=== PATIENT | male | born 1960 | race Caucasian/White ===

== ENCOUNTER 2023-06-21 08:28 | Outpatient (AMB) | payer OTHER, SELFPAY ==
--- NOTE | 2023-06-21 08:33 | A.OFFPC_ITS ---
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 Pt states that he has not seen a do ctor in years. 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 Pt c/o a chronic sore on the neck had negative bx 3 yrs ago. Pt c/o decreased appetite, feeling easy satiety and abdominal fullness epigastric discomfort after eating, frequent heartburns but denies dysphagia odynophagia nausea vomiting change in bowel habits hematochezia melena. Patient complains of insomnia and feeling sad and upset because his brother who lives with him was diagnosed with tongue cancer about a month ago and is undergoing treatment. Patient denies suicidal ideation and is not interested in taking medications for depression or seeing a counselor. [facility] Medical History (Updated 06/21/23 @ 09:53 by Pauline Dc MD) Hx of fracture of leg Surgical History History of back surgery Family History Father No problems noted. Mother Heart attack Brother Throat cancer Brother Substance use disorder Social History (Updated 06/21/23 @ 09:41 by Pauline Dc MD) Household Members Other:: lives with brother,disability for lumbar DJD, , 2 adult daughters Housing: House Alcohol intake: former Year quit: 2008 Patient Tobacco Use Status: Current everyday Tobacco user Tobacco use type: Cigarette Cigarette Packs Per Day: 1.5 Years Smoked: since 15 years old e-Cigarette/Vaping Use: Never Used Current occupational status: unemployed Cognitive needs: No Hearing needs: No Vision needs: Yes Questionnaire PHQ-9 Over the last 2 weeks, how often have you been bothered by any of the following problems? 1. Little interest or pleasure in doing things: several days 2. Feeling down, depressed, or hopeless: several days 3. Trouble falling or staying asleep, or sleeping too much: nearly every day 4. Feeling tired or having little energy: more than half the days 5. Poor appetite or overeating: nearly every day 6. Feeling bad about yourself - or that you are a failure or have let yourself or your family down: nearly every day 7. Trouble concentrating on things, such as reading the newspaper or watching television: nearly every day 8. Moving or speaking so slowly that other people could have noticed. Or the opposite - being so fidgety or restless that you have been moving around a lot more than usual: several days 9. Thoughts that you would be better off or of hurting yourself in some way: several days Total score: 18 Depression Screening Interpretation: Positive Depression Screening Done: Yes 11170 - PHQ-9 Billing: Yes Source: Developed by Drs. Shen Ware, Jonna Guevara, Mac Dial and colleagues, with an educational marito from [employer]. Thrive Questionnaire Date Thrive assessed: 06/21/23 I am a: Patient What is your living situation today?: I have a steady place to live Within the past 12 months, did the food you bought not last and you didn't have the money to get more?: Sometimes True Within the past 12 months, did you worry whether your food would run out before you got money to buy more?: Sometimes True Do you have trouble paying for medicines?: Yes Do you have trouble getting transportation to medical appointments?: No Do you have trouble paying your heating and electricity bill?: Yes Do you have trouble taking care of your child, family member or friend?: Yes Do you have trouble with day-to-day activities such as bathing, preparing meals, shopping, managing finances, etc.?: No Are you currently unemployed and looking for a job?: No Are you interested in more education?: No Please select the resources that you would like help with: Paying for medicine and Utilities Currently or been in a relationship where the following occur: no concerns reported THRIVE Score: 3 AUDIT C Alcohol Use Questionnaire (AUDIT-C) 1. How often do you have a drink containing alcohol?: Never 3. How often do you have six or more drinks on one occasion?: Never Total Score: 0 NATIVIDAD-7 AMB Questionnaire NATIVIDAD-7 Date NATIVIDAD - 7 assessed: 06/21/23 Feeling nervous, anxious, or on edge: 1 = Several days Not being able to stop or control worryin = Several days Worrying too much about different things: 2 = More than half the days Trouble relaxin = More than half the days Being so restless that it is hard to sit still: 2 = More than half the days Becoming easily annoyed or irritable: 2 = More than half the days Feeling afraid as if something awful might happen: 1 = Several days Total NATIVIDAD-7 score (0-4 normal; 5-9 mild; 10-14 moderate; 15-21 severe): 11 Source: Developed by Drs. Shen Ware, Jonna Guevara, Mac Dial and colleagues, with an educational marito from [employer]. NATIVIDAD-7 Assessment Billing NATIVIDAD-7 Assessment Tool: NATIVIDAD-7 Assessment 42217 Review of Systems Const All systems reviewed & are unremarkable except as noted in HPI and below Reports no additional complaints Eyes Reports no additional complaints ENT Reports no additional complaints Card Reports no additional complaints Resp Reports no additional complaints GI Reports no additional complaints Reports no additional complaints Musc Reports no additional complaints Physical exam (Primary Care) Vital Signs: Last Vital Signs Pulse 109 H 06/21/23 08:38 BP 136/76 06/21/23 08:38 Pulse Ox 96 06/21/23 08:38 Oxygen Delivery Method Room Air 06/21/23 08:38 BMI result Body Mass Index 22.5 Tobacco/Smoking Status: Tobacco use Status Tobacco use date assessed 06/21/23 06/21/23 08:47 Patient Tobacco Use Status Current everyday Tobacco 06/21/23 08:47 Tobacco use type Cigarette 06/21/23 08:47 e-Cigarette/Vaping Use Never Used 06/21/23 08:47 Depression Screening Interpretation: Positive Currently or been in a relationship where the following occur: no concerns reported Const General: no acute distress and ill appearing Nutritional Appearance: thin HENMT Head: Yes normocephalic Ears: hearing grossly normal bilaterally General nose exam: Normal external nose present Face and sinus: Yes normal facial exam Mouth: Normal oral and palatal mucosa present Throat: Yes posterior oropharynx normal Eyes General: appearance normal, both eyes and all related structures Neck Other: 5 cm round raised lesion with central ulceration Neck: Yes supple Resp Effort & Inspection: normal respiratory effort Auscultation: diminished lung sounds Cardio Rhythm: regular rhythm Heart sounds: S1 normal heart sound present and S2 normal heart sound present GI Inspection: Yes normal to inspection Palpation (GI): Tenderness to palpation present (GI) in the epigastrum and in the LUQ and No Rebound tenderness present Auscultation: normal bowel sounds Assessment and Plan Assessment & Plan (1) Lumbar disc disease: Comment: s/p [address] Bhat Code(s): M51.9 - Unspecified thoracic, thoracolumbar and lumbosacral intervertebral disc disorder (2) Annual physical exam: Code(s): Z00.00 - Encounter for general adult medical examination without abnormal findings Plan: Well-balanced diet regular physical activity discussed with the patient. He will be referred to GI for colonoscopy and possible EGD (3) Tobacco dependence: Comment: 1 PPD x 40 yrs Code(s): F17.200 - Nicotine dependence, unspecified, uncomplicated Plan: Tobacco quitting discussed with the patient. He will be referred to lung cancer screening program (4) Abdominal pain: Comment: epigastric and LUQ Code(s): R10.9 - Unspecified abdominal pain Plan: Check blood work and schedule CT of the abdomen pelvis to rule out diverticulitis (5) Skin lesion: Comment: L lateral neck 5 cm raised ulcerated Code(s): L98.9 - Disorder of the skin and subcutaneous tissue, unspecified Plan: refer to surgeon PARESH (6) GERD (gastroesophageal reflux disease): Comment: long standing Code(s): K21.9 - Gastro-esophageal reflux disease without esophagitis Plan: anti GERD diet, trial of PPI, GI referral for EGD (7) Weight loss: Code(s): R63.4 - Abnormal weight loss Plan: Well-balanced diet increase in caloric intake discussed with the patient check blood work and follow-up in 2 months to monitor weight (8) Anxiety and depression: Code(s): F41.9 - Anxiety disorder, unspecified; F32.A - Depression, unspecified Plan: Stress management discussed with the patient. he is aware of available resources including counseling and medications for anxiety and depressed. Patient declined Orders: Orders Comprehensive [place]. Panel Fast Today F17.200 - Nicotine dependence, unspecified, uncomplicated, Z00.00 - Encounter for general adult medical examination without abnormal findings Lipid Panel Today F17.200 - Nicotine dependence, unspecified, uncomplicated, Z00.00 - Encounter for general adult medical examination without abnormal findings PSA,Total (Free>4and<10) Today F17.200 - Nicotine dependence, unspecified, uncomplicated, Z00.00 - Encounter for general adult medical examination without abnormal findings UA w Microscopic Today F17.200 - Nicotine dependence, unspecified, uncomplicated, Z00.00 - Encounter for general adult medical examination without abnormal findings Vitamin B12 and Folate Today K21.9 - Gastro-esophageal reflux disease without esophagitis, R63.4 - Abnormal weight loss, Z00.00 - Encounter for general adult medical examination without abnormal findings Complete Blood Count Auto Diff Today F17.200 - Nicotine dependence, unspecified, uncomplicated, Z00.00 - Encounter for general adult medical examination without abnormal findings CT abdomen pelvis wo/w IV con Today R10.9 - Unspecified abdominal pain TSH reflex Free T4 Today K21.9 - Gastro-esophageal reflux disease without esophagitis, R63.4 - Abnormal weight loss, Z00.00 - Encounter for general adult medical examination without abnormal findings Vitamin D 25-OH Total Today K21.9 - Gastro-esophageal reflux disease without esophagitis, R63.4 - Abnormal weight loss, Z00.00 - Encounter for general adult medical examination without abnormal findings Referrals Gastroenterology Referral F17.200 - Nicotine dependence, unspecified, uncomplicated, Z00.00 - Encounter for general adult medical examination without abnormal findings Thoracic Surgery Referral F17.200 - Nicotine dependence, unspecified, uncomplicated General Surgery Referral L98.9 - Disorder of the skin and subcutaneous tissue, unspecified Medications: New omeprazole 40 mg PO DAILY 30 caps 1RF Coding Level of Care Code New Pt Prev Care 40-64y(88104) Diagnoses Lumbar disc disease M51.9 Annual physical exam Z00.00 Tobacco dependence F17.200 Abdominal pain R10.9 Skin lesion L98.9 GERD (gastroesophageal reflux disease) K21.9 Weight loss R63.4 Anxiety and depression F41.9; F32.A Additional Codes NATIVIDAD-7 Assessment Billing - NATIVIDAD-7 Assessment Tool: NATIVIDAD-7 Assessment 83860 ([id number])
[2023-06-21 08:38] VITALS: BP 136/76; PULSE 109; O2SAT 96; BMI 22.5
== END 2023-06-21 09:13 | disposition home or self-care (01) ==
LOC: HO.HMGC 08:28
PROVIDERS: PCP Internal Medicine; Visit Provider Internal Medicine
DX: Z00.00 Encounter for general adult medical examination without abnormal findings (principal); M51.9 Unspecified thoracic, thoracolumbar and lumbosacral intervertebral disc disorder; F17.200 Nicotine dependence, unspecified, uncomplicated; R10.9 Unspecified abdominal pain; L98.9 Disorder of the skin and subcutaneous tissue, unspecified; K21.9 Gastro-esophageal reflux disease without esophagitis; R63.4 Abnormal weight loss; F41.9 Anxiety disorder, unspecified; F32.A Depression, unspecified
CPT/HCPCS: 99386

== ENCOUNTER 2023-06-29 13:24 | Outpatient (AMB) | payer OTHER, SELFPAY ==
--- NOTE | 2023-06-29 13:25 | A.OFFVIS_ITS ---
Intake Vital Signs 06/29/23 13:28 Height 5 ft 8 in Weight 154 lb BMI 23.4 BP 151/87 H Blood Pressure Location Lt brachial Position Sitting Pulse 106 H Intake Visit Reasons: chronic sore of the neck Intake Note: Patient referred by PCP Dr. Dc for non healing sore on neck. Present for 3 yrs. Patient c/o: bleeding after removing bandage. No hs of skin ca. Human Resources Intern Required: No Accompanied by: Self / Same As Patient Allergies Penicillins Allergy (Verified 06/29/23 13:29) Rash HPI HPI Comments History of Present Illness Details Patient presents for evaluation of a left neck soft tissue mass. He has had this 3 years time. He has markedly increased in size and become more symptomatic. Patient wished to have this excised. He has no such lesions elsewhere. Chart was reviewed patient evaluated [facility] Medical History Hx of fracture of leg Surgical History History of back surgery Family History Father No problems noted. Mother Heart attack Brother Throat cancer Brother Substance use disorder Social History Household Members Other:: lives with brother,disability for lumbar DJD, , 2 adult daughters Housing: House Alcohol intake: former Year quit: 2008 Patient Tobacco Use Status: Current everyday Tobacco user Tobacco use type: Cigarette Cigarette Packs Per Day: 1.5 Years Smoked: since 15 years old e-Cigarette/Vaping Use: Never Used Current occupational status: unemployed Cognitive needs: No Hearing needs: No Vision needs: Yes Physical Exam Vital Signs: Last Vital Signs Pulse 106 H 06/29/23 13:28 BP 151/87 H 06/29/23 13:28 BMI result Body Mass Index 23.4 Neck Other: Patient has approximately 5 x 4 cm exophytic mass consistent with 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 No cervical periclavicular axillary adenopathy appreciated. Chest Other: Chest breath sounds bilaterally, HS 1 in 2 GI Other: Abdomen soft, benign Assessment & Plan Assessment & Plan (1) Skin malignant neoplasm: Code(s): C44.90 - Unspecified malignant neoplasm of skin, unspecified Plan Risks, benefits, alternatives of wide local excision of this left mid neck skin cancer reviewed with the patient and included but not limited to bleeding, infection, recurrence, numbness, pain, scarring, seroma formation, wound dehiscence and the patient wished to proceed. All questions answered. Arrangements were made for this. Coding Level of Care Code New Pt Level 5 (82603) Diagnoses Skin malignant neoplasm C44.90
[2023-06-29 13:28] VITALS: BP 151/87; PULSE 106; BMI 23.4
== END 2023-06-29 13:39 | disposition home or self-care (01) ==
PROVIDERS: PCP Internal Medicine; Visit Provider Surgery
DX: C44.90 Unspecified malignant neoplasm of skin, unspecified (principal)
CPT/HCPCS: 99204

== ENCOUNTER → 2023-06-29 13:24 | Outpatient (BNVA) | payer OTHER, MEDICAID, SELFPAY | PROVIDERS: PCP Internal Medicine; Visit Provider Surgery | DX: C44.90 Unspecified malignant neoplasm of skin, unspecified (principal) | CPT/HCPCS: 99202 ==

== ENCOUNTER 2023-07-08 11:49 | Day surgery (SDC) | payer OTHER, SELFPAY ==
[2023-07-06 11:41] VITALS: BMI 23.4
--- NOTE | 2023-07-06 15:25 | P.CONAN_ITS ---
Documented by User: Cintia Lux NP 07/06/23 15:26 HPI - Anesthesia Eval Consult details Narrative: 62yo M for Left Wide Local Excision Neck PMFSH Active Problems Active Problems: All Active Problems (Updated 06/21/23 @ 09:53 by Pauline Dc MD) Skin malignant neoplasm (Acute) Anxiety and depression (Acute) Weight loss (Acute) GERD (gastroesophageal reflux disease) (Acute) Skin lesion (Acute) Abdominal pain (Acute) Tobacco dependence (Acute) Annual physical exam (Acute) Lumbar disc disease (Acute) Past Medical History Medical History Hx of fracture of leg Family History Family History Father No problems noted. Mother Heart attack Brother Throat cancer Brother Substance use disorder Surgical History Surgical History (Updated 07/08/23 @ 14:56 by Jamia Sanders RN) Hx of colonoscopy History of back surgery Social History Social History Household Members Other:: lives with brother,disability for lumbar DJD, , 2 adult daughters Housing: House Alcohol intake: former Year quit: 2008 Patient Tobacco Use Status: Current everyday Tobacco user Tobacco use type: Cigarette Cigarette Packs Per Day: 1.5 Years Smoked: since 15 years old Smoked in Last 30 Days: Yes e-Cigarette/Vaping Use: Never Used Patient Interested in Nicotine Replacement: No Are you DNR?: No Advance Directives: No Advance Directives Information Provided: Yes Nutrition Risks: No Nutritional Risk Current occupational status: unemployed Cognitive needs: No Hearing needs: No Vision needs: Yes Meds Allergies Allergy/AdvReac Type Severity Reaction Status Date / Time Penicillins Allergy Rash Verified 07/08/23 14:56 Exam Height,Weight and Vital Signs: Height 5 ft 8 in Weight 69.854 kg Assessment and Plan Assessment Anesthesia Assessment: Chart Reviewed Documented by User: Benigno Osei MD 07/08/23 16:00 [facility] Past Medical History Medical History Hx of fracture of leg Family History Family History Father No problems noted. Mother Heart attack Brother Throat cancer Brother Substance use disorder Family history of problems with anesthesia: No Surgical History Surgical History (Updated 07/08/23 @ 14:56 by Jamia Sanders RN) Hx of colonoscopy History of back surgery History of Problems with Anesthesia: No Social History Social History Household Members Other:: lives with brother,disability for lumbar DJD, , 2 adult daughters Housing: House Alcohol intake: former Year quit: 2008 Patient Tobacco Use Status: Current everyday Tobacco user Tobacco use type: Cigarette Cigarette Packs Per Day: 1.5 Years Smoked: since 15 years old Smoked in Last 30 Days: Yes e-Cigarette/Vaping Use: Never Used Patient Interested in Nicotine Replacement: No Are you DNR?: No Advance Directives: No Advance Directives Information Provided: Yes Nutrition Risks: No Nutritional Risk Current occupational status: unemployed Cognitive needs: No Hearing needs: No Vision needs: Yes Meds Allergies Allergy/AdvReac Type Severity Reaction Status Date / Time Penicillins Allergy Rash Verified 07/08/23 14:56 Exam Airway Mallampati Class: II TM Dist: >3cm Neck ROM: Full Loose/Missing/Broken Teeth: Yes and Upper Heart: ok Lungs: ok Assessment and Plan Assessment Anesthesia Assessment: Anesthesia Plan Discussed Final Anesthetic Review Family History of Problems with Anesthesia: No History of Problems with Anesthesia: No NPO: Yes ASA Class: II Final Preanesthetic Review: No Changes in Pt Med Stat, Meds/Allgs Chart Reviewed, Consent Obtained/Reviewed and Anes Risks/Benef Reviewed Patient Risk: Intermediate Procedure Risk: Low Anesthetic Plan Anesthetic Plan: GA and Agree w/ Assess. and Plan Disposition: Standard PACU
--- NOTE | 2023-07-07 21:06 | MHC.SHP ---
Pre-Procedural Eval Section A - 24 Hr Update-Section A only Date of Service: 07/07/23 The patient is an INPATIENT: No Changes since office visit: No Cold of Flu in the past 2 weeks, No New Medical Problems, No Changes in Medication and No Patient answered all questions The patient has been examined within 24 hours of the surgical procedure. The History & Physical has been completed within 30 days and I have reviewed it.: Yes Section B - Complete if H&P > 30 days Chief Complaint: Unspecified malignant neoplasm of skin, unspecifie Allergies: Allergies Allergy/AdvReac Type Severity Reaction Status Date / Time Penicillins Allergy Rash Verified 06/29/23 13:29 Plan I have reviewed the history and physical and performed a pertinent physical examination on my patient. No changes have occurred unless specified. Time Spent With Patient Time: Total time managing care of this patient today ____ minutes.
[2023-07-08] VITALS (9 sets, daily range): BP systolic 131–183; BP diastolic 86–121; PULSE 96–112; RESP 14–18; TEMP 36.8–37.1; O2SAT 96–100; BMI 23.3
[2023-07-08] MEDS: Lactated Ringers 1,000 ML 100 ML IVCONT (13:23)
[2023-07-08] MEDS: Acetaminophen 325 MG TABLET 650 MG PO (13:23)
--- NOTE | 2023-07-08 16:54 | P.OP_ITS ---
Operative Note Operative Note Date of Service: 07/08/23 Narrative: Preoperative diagnosis: [] Exophytic tumor left mid neck Postop diagnosis: [] Same Procedure [] wide local excision left neck tumor Surgeon: [] Vj Birdcage Assembler: [] April Type of Anesthesia: [] LMA Indication for surgery: [] Final specimen of an exophytic growth of the left mid neck measured approximately 10 by 5 cm. Findings: [] Patient brought to the operating room, placed on operative table supine position, after adequate level of LMA anesthesia was induced, the left neck and upper chest area were prepped draped in usual sterile fashion. Using a transverse bi- elliptical incision with final dimensions as described above, this carried down through skin, subcutaneous tissue, and undermined circumferentially to grossly clear margins. Specimen was tagged and sent to pathology for permanent evaluation. Superior and inferior skin flaps were developed using Bovie. Anterior left jugular vein was clamped, cut, and suture ligated using 2-0 silk sutures to enhance skin flaps. At completion, skin flaps were viable under no tension, and well perfused and wound was closed in the following manner; after irrigation and secured hemostasis, interrupted inverted dermal 3-0 Vicryl sutures followed by Steri-Strips and sterile dressings were applied. Wound was infiltrated at the beginning and at the end of the procedure of 1% lidocaine/ 5% Marcaine. Sponge, needle, and instrument counts were reported correct. Patient tolerated the procedure well and emerged from anesthesia stable condition. EBL minimal
== END 2023-07-08 18:31 | disposition home or self-care (01) ==
PROVIDERS: PCP Internal Medicine; Visit Provider Surgery
PROC: (CPT 21552; principal; 2023-07-08 14:30)
DX: C44.41 Basal cell carcinoma of skin of scalp and neck (principal); Z79.899 Other long term (current) drug therapy; Z88.0 Allergy status to penicillin; Z98.890 Other specified postprocedural states; F17.210 Nicotine dependence, cigarettes, uncomplicated
CPT/HCPCS: 21552; 88304; J0736; J1885; J2405; J2704; J2795; J3010

== ENCOUNTER → 2023-07-08 11:49 | Outpatient (BNV) | payer OTHER, SELFPAY | PROVIDERS: PCP Internal Medicine; Visit Provider Surgery | DX: C44.41 Basal cell carcinoma of skin of scalp and neck (principal) | CPT/HCPCS: 11626 ==

== ENCOUNTER 2023-07-18 10:01 | Outpatient (AMB) | payer OTHER, SELFPAY ==
[2023-07-18 10:09] VITALS: BP 161/80; PULSE 92
--- NOTE | 2023-07-18 10:09 | MHC.OFFVIS ---
Intake Vital Signs 07/18/23 10:09 Weight 150 lb BP 161/80 H Blood Pressure Location Rt brachial Position Sitting Pulse 92 Intake Visit Reasons: S/p wle left neck skin cancer Intake Note: Patient here c/o pain at surgical site on neck. WLE on Lt neck on 07-08-23. Was seen @ [facility] ER last night. C/o bruising on chest and bad taste in mouth. Acquisition Associate Required: No Accompanied by: Self / Same As Patient Allergies Penicillins Allergy (Verified 07/18/23 10:10) Rash HPI HPI Comments History of Present Illness Details Patient presents for follow-up. He was seen at [facility] over the weekend for nonspecific respiratory issues. Apparently the workup was negative because he was sent home. In the meantime, he has incisional discomfort but otherwise no other wound issues. Pathology was reviewed and all margins were clear of the basal cell carcinoma [facility] Medical History Hx of fracture of leg Surgical History Hx of surgical procedure (07/08/23) Hx of colonoscopy History of back surgery Family History Father No problems noted. Mother Heart attack Brother Throat cancer Brother Substance use disorder Social History Household Members Other:: lives with brother,disability for lumbar DJD, , 2 adult daughters Housing: House Alcohol intake: former Year quit: 2008 Patient Tobacco Use Status: Current everyday Tobacco user Tobacco use type: Cigarette Cigarette Packs Per Day: 1.5 Years Smoked: since 15 years old e-Cigarette/Vaping Use: Never Used Current occupational status: unemployed Cognitive needs: No Hearing needs: No Vision needs: Yes Physical Exam Vital Signs: Last Vital Signs Pulse 92 07/18/23 10:09 BP 161/80 H 07/18/23 10:09 Neck Other: Wound is clean dry and intact healing very well. Assessment & Plan Assessment & Plan (1) Postop check: Code(s): Z09 - Encounter for follow-up examination after completed treatment for conditions other than malignant neoplasm (2) Skin malignant neoplasm: Code(s): C44.90 - Unspecified malignant neoplasm of skin, unspecified Plan Patient was reassured that there are no wound issues. He has been given local instructions. He has Motrin at home which I recommend he take as he has not tolerating the Vicodin well. All questions answered. Patient will see me in proximally 3 weeks time or p.r.n.. Coding Level of Care Code Global (68250) Diagnoses Postop check Z09 Skin malignant neoplasm C44.90
== END 2023-07-18 10:31 | disposition home or self-care (01) ==
LOC: HO.HGS 10:02
PROVIDERS: PCP Internal Medicine; Visit Provider Surgery
DX: Z09 Encounter for follow-up examination after completed treatment for conditions other than malignant neoplasm (principal); C44.90 Unspecified malignant neoplasm of skin, unspecified
CPT/HCPCS: 99024

== ENCOUNTER → 2023-07-18 10:01 | Outpatient (BNVA) | payer OTHER, SELFPAY | PROVIDERS: PCP Internal Medicine; Visit Provider Surgery | DX: Z09 Encounter for follow-up examination after completed treatment for conditions other than malignant neoplasm (principal); C44.90 Unspecified malignant neoplasm of skin, unspecified | CPT/HCPCS: 99212 ==

== ENCOUNTER 2023-07-27 12:15 | Outpatient (AMB) | payer OTHER, SELFPAY ==
[2023-07-27 12:53] VITALS: BP 120/80; PULSE 66; O2SAT 96; BMI 23.6
--- NOTE | 2023-07-27 12:53 | A.OFFPC_ITS ---
Vital Signs 07/27/23 12:53 07/27/23 13:42 Height 5 ft 8 in Weight 155 lb BMI 23.6 BP 120/80 130/80 Blood Pressure Location Rt brachial Lt brachial Position Sitting Sitting Pulse 66 Pulse Source Pulse Oximeter Pulse Oximetry (%) 96 Oxygen Delivery Method Room Air Intake Visit Reasons: 1M F/U labs Passenger Tire Inspector Required: No Information Interpreted: non-clinical & clinical Accompanied by: Self / Same As Patient Allergies Penicillins Allergy (Verified 07/27/23 12:54) Rash Medication List - Last Reconciled 07/27/23 by Pauline Dc MD hydrocodone-acetaminophen 5-325 mg 1 tab PO Q4-6H PRN omeprazole 40 mg PO DAILY Tobacco use date assessed: 07/27/23 Dental Screening Dental Screen Date: 07/27/23 Did you have a dental visit in the last 12 months?: No Did you have a dental problem in the last 6 months where you did not have access to dental care?: No Was dental information given to patient?: No HPI 1M F/U labs HPI Details Patient presents for the follow-up. 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 Patient reports persistent left clavicle discomfort since the surgery and was evaluated in the ER. For chronic anxiety and depression patient is established with a counselor and not interested in taking medications PFSH Medical History Hx of fracture of leg Surgical History Hx of surgical procedure (07/08/23) Hx of colonoscopy History of back surgery Family History Father No problems noted. Mother Heart attack Brother Throat cancer Brother Substance use disorder Social History Household Members Other:: lives with brother,disability for lumbar DJD, , 2 adult daughters Housing: House Alcohol intake: former Year quit: 2008 Patient Tobacco Use Status: Current everyday Tobacco user Tobacco use type: Cigarette Cigarette Packs Per Day: 1.5 Years Smoked: since 15 years old e-Cigarette/Vaping Use: Never Used Current occupational status: unemployed Cognitive needs: No Hearing needs: No Vision needs: Yes Questionnaire PHQ-9 Over the last 2 weeks, how often have you been bothered by any of the following problems? 1. Little interest or pleasure in doing things: several days 2. Feeling down, depressed, or hopeless: several days 3. Trouble falling or staying asleep, or sleeping too much: nearly every day 4. Feeling tired or having little energy: more than half the days 5. Poor appetite or overeating: nearly every day 6. Feeling bad about yourself - or that you are a failure or have let yourself or your family down: nearly every day 7. Trouble concentrating on things, such as reading the newspaper or watching television: nearly every day 8. Moving or speaking so slowly that other people could have noticed. Or the opposite - being so fidgety or restless that you have been moving around a lot more than usual: several days 9. Thoughts that you would be better off or of hurting yourself in some way: several days Total score: 18 Depression Screening Interpretation: Positive (Patient is established with a therapist and declined taking medications) Depression Screening Follow-up: Existing condition and In treatment Depression Screening Done: Yes 57655 - PHQ-9 Billing: Yes Source: Developed by Drs. Shen Ware, Jonna Guevara, Mac Dial and colleagues, with an educational marito from [employer]. Thrive Questionnaire Date Thrive assessed: 06/21/23 I am a: Patient What is your living situation today?: I have a steady place to live Within the past 12 months, did the food you bought not last and you didn't have the money to get more?: Sometimes True Within the past 12 months, did you worry whether your food would run out before you got money to buy more?: Sometimes True Do you have trouble paying for medicines?: Yes Do you have trouble getting transportation to medical appointments?: No Do you have trouble paying your heating and electricity bill?: Yes Do you have trouble taking care of your child, family member or friend?: Yes Do you have trouble with day-to-day activities such as bathing, preparing meals, shopping, managing finances, etc.?: No Are you currently unemployed and looking for a job?: No Are you interested in more education?: No Please select the resources that you would like help with: Paying for medicine and Utilities Currently or been in a relationship where the following occur: no concerns reported THRIVE Score: 3 NATIVIDAD-7 AMB Questionnaire NATIVIDAD-7 Date NATIVIDAD - 7 assessed: 06/21/23 Feeling nervous, anxious, or on edge: 1 = Several days Not being able to stop or control worryin = Several days Worrying too much about different things: 2 = More than half the days Trouble relaxin = More than half the days Being so restless that it is hard to sit still: 2 = More than half the days Becoming easily annoyed or irritable: 2 = More than half the days Feeling afraid as if something awful might happen: 1 = Several days Total NATIVIDAD-7 score (0-4 normal; 5-9 mild; 10-14 moderate; 15-21 severe): 11 Source: Developed by Drs. Shen Ware, Jonna Guevara, Mac Dial and colleagues, with an educational marito from [employer]. NATIVIDAD-7 Assessment Billing NATIVIDAD-7 Assessment Tool: NATIVIDAD-7 Assessment 16167 Review of Systems Const All systems reviewed & are unremarkable except as noted in HPI and below Reports no additional complaints Eyes Reports no additional complaints ENT Reports no additional complaints Card Reports no additional complaints Resp Reports no additional complaints GI Reports no additional complaints Reports no additional complaints Physical exam (Primary Care) Vital Signs: Last Vital Signs Pulse 66 07/27/23 12:53 BP 148/88 H 07/27/23 12:53 Pulse Ox 96 07/27/23 12:53 Oxygen Delivery Method Room Air 07/27/23 12:53 BMI result Body Mass Index 23.6 Tobacco/Smoking Status: Tobacco use Status Tobacco use date assessed 07/27/23 07/27/23 12:57 Patient Tobacco Use Status Current everyday Tobacco 07/27/23 12:57 Tobacco use type Cigarette 07/27/23 12:57 e-Cigarette/Vaping Use Never Used 07/27/23 12:57 PHQ-9: PHQ-9 Score PHQ-9: Total score 18 07/27/23 12:57 Depression Screening Interpretation: Positive (Patient is established with a therapist and declined taking medications) Depression Screening Follow-up: Existing condition and In treatment Thrive Assessment: Date of Thrive Assessment Date Thrive assessed 06/21/23 07/27/23 12:57 Currently or been in a relationship where the following occur: no concerns reported Const General: no acute distress HENMT Head: Yes normal to inspection Ears: hearing grossly normal bilaterally Face and sinus: Yes normal facial exam Eyes General: appearance normal, both eyes and all related structures Neck Other: Well-healed incision left posterior neck no erythema warmth or tenderness Neck: Yes no lymphadenopathy and Yes supple Resp Effort & Inspection: normal respiratory effort Auscultation: clear to auscultation bilaterally Cardio Rhythm: regular rhythm Heart sounds: S1 normal heart sound present and S2 normal heart sound present GI Inspection: Yes normal to inspection Palpation (GI): Soft to palpation Percussion: Yes normal to percussion Auscultation: normal bowel sounds Assessment and Plan Assessment & Plan (1) Tobacco dependence: Comment: 1 PPD x 40 yrs Code(s): F17.200 - Nicotine dependence, unspecified, uncomplicated Plan: Tobacco quitting discussed with the patient referred to lung cancer screening program (2) Anxiety and depression: Comment: Established with a counselor, patient declined medications Code(s): F41.9 - Anxiety disorder, unspecified; F32.A - Depression, unspecified (3) Skin malignant neoplasm: Comment: Basal cell carcinoma on neck 07/02 Code(s): C44.90 - Unspecified malignant neoplasm of skin, unspecified Plan: Follow-up with the surgeon Orders: Referrals Thoracic Surgery Referral F17.200 - Nicotine dependence, unspecified, uncomplicated Coding Level of Care Code Est Pt Level 3 (05614) Diagnoses Tobacco dependence F17.200 Anxiety and depression F41.9; F32.A Skin malignant neoplasm C44.90 Additional Codes NATIVIDAD-7 Assessment Billing - NATIVIDAD-7 Assessment Tool: NATIVIDAD-7 Assessment 67934 ([id number])
[2023-07-27 13:42] VITALS: BP 130/80
== END 2023-07-27 13:44 | disposition home or self-care (01) ==
PROVIDERS: PCP Internal Medicine; Visit Provider Internal Medicine
DX: F41.9 Anxiety disorder, unspecified (principal); F32.A Depression, unspecified; F17.210 Nicotine dependence, cigarettes, uncomplicated; C44.90 Unspecified malignant neoplasm of skin, unspecified
CPT/HCPCS: 99213

== ENCOUNTER 2023-08-08 10:37 | Outpatient (AMB) | payer OTHER, SELFPAY ==
--- NOTE | 2023-08-08 10:50 | A.OFFVIS_ITS ---
Intake Intake Visit Reasons: S/p wle left neck skin cancer Allergies Penicillins Allergy (Verified 07/27/23 12:54) Rash HPI HPI Comments History of Present Illness Details Patient presents for evaluation of a stitch extruding from his incision. He has no other wound issues or complaints. [facility] Medical History Hx of fracture of leg Surgical History Hx of surgical procedure (07/08/23) Hx of colonoscopy History of back surgery Family History Father No problems noted. Mother Heart attack Brother Throat cancer Brother Substance use disorder Social History Household Members Other:: lives with brother,disability for lumbar DJD, , 2 adult daughters Housing: House Alcohol intake: former Year quit: 2008 Patient Tobacco Use Status: Current everyday Tobacco user Tobacco use type: Cigarette Cigarette Packs Per Day: 1.5 Years Smoked: since 15 years old e-Cigarette/Vaping Use: Never Used Current occupational status: unemployed Cognitive needs: No Hearing needs: No Vision needs: Yes Physical Exam HEENT Other: The most lateral aspect of his incision has a suture extruding. His uneventfully removed. Remaining incision is clean dry and intact healing very well. Assessment & Plan Assessment & Plan (1) Postop check: Code(s): Z09 - Encounter for follow-up examination after completed treatment for conditions other than malignant neoplasm Plan Patient has been given local instructions, and will follow-up in 4 months' time for surveillance or p.r.n.. All questions answered Coding Level of Care Code Global (01402) Diagnoses Postop check Z09
== END 2023-08-08 10:53 | disposition home or self-care (01) ==
PROVIDERS: PCP Internal Medicine; Visit Provider Surgery
DX: Z09 Encounter for follow-up examination after completed treatment for conditions other than malignant neoplasm (principal)
CPT/HCPCS: 99024

== ENCOUNTER → 2023-08-08 10:37 | Outpatient (BNVA) | payer OTHER, SELFPAY | PROVIDERS: PCP Internal Medicine; Visit Provider Surgery | DX: Z08 Encounter for follow-up examination after completed treatment for malignant neoplasm (principal); C44.90 Unspecified malignant neoplasm of skin, unspecified; Z98.890 Other specified postprocedural states | CPT/HCPCS: 99212 ==

== ENCOUNTER 2023-12-12 09:15 | Outpatient (AMB) | payer OTHER, SELFPAY ==
[2023-12-12 09:19] VITALS: BP 136/77; PULSE 81; BMI 21.4
--- NOTE | 2023-12-12 09:19 | A.OFFVIS_ITS ---
Vital Signs 12/12/23 09:19 Height 5 ft 8 in Weight 141 lb BMI 21.4 BP 136/77 Blood Pressure Location Rt brachial Position Sitting Pulse 81 Intake Visit Reasons: S/p wle left neck skin cancer Intake Note: Patient here for 4m f/u exc on lt neck. Reports incision healing well. Patient c/o: Denies no concerning lesions. Does not see electrician's assistant. Visitor Services Specialist Required: No Allergies Penicillins Allergy (Verified 07/27/23 12:54) Rash HPI Comments Details: Patient presents for surveillance follow-up status post left neck skin cancer excision several months ago. He has has no wound issues or complaints. He has no new skin concerning lesions. [facility] Medical History (Updated 10/25/23 @ 14:36 by Kristen Perdue PA-C) Lumbar disc disease History of basal cell carcinoma (BCC) GERD (gastroesophageal reflux disease) Anxiety and depression Nicotine dependence, cigarettes, uncomplicated Hx of fracture of leg Surgical History (Updated 12/12/23 @ 09:30 by Wilman Zabala MD) History of colonoscopy History of basal cell carcinoma (BCC) excision History of back surgery Family History Father No problems noted. Mother Heart attack Brother Throat cancer Brother Substance use disorder Social History Household Members Other:: lives with brother,disability for lumbar DJD, divor hamida, 2 adult daughters Housing: House Alcohol intake: former Year quit: 2008 Patient Tobacco Use Status: Current everyday Tobacco user Tobacco use type: Cigarette Cigarette Packs Per Day: 1.5 Years Smoked: since 15 years old e-Cigarette/Vaping Use: Never Used Current occupational status: unemployed Cognitive needs: No Hearing needs: No Vision needs: Yes Physical Exam Vital Signs: Last Vital Signs Pulse 81 12/12/23 09:19 BP 136/77 12/12/23 09:19 BMI result Body Mass Index 21.4 HEENT Other: Incision site healed very well. No evidence of any cervical periclavicular axillary adenopathy. No obvious were suspicious skin lesions demonstrated. Assessment & Plan Assessment & Plan (1) History of basal cell carcinoma (BCC) excision: Comment: (WLE of Left neck - DX: BCC, N, LUKASZ, CE - Dr. Zabala -07/08/23) Code(s): Z98.890 - Other specified postprocedural states; Z85.828 - Personal history of other malignant neoplasm of skin Category: Medical Plan Patient was encouraged to continue were some block and a hat when possible when he is outside. All questions answered. He was seen in 6 months' time for surveillance follow-up or p.r.n.. All questions answered. Coding Level of Care Code Est Pt Level 3 (98513) Diagnoses History of basal cell carcinoma (BCC) excision Z98.890; Z85.828
== END 2023-12-12 09:23 | disposition home or self-care (01) ==
PROVIDERS: PCP Internal Medicine; Visit Provider Surgery
DX: C44.41 Basal cell carcinoma of skin of scalp and neck (principal); Z98.890 Other specified postprocedural states
CPT/HCPCS: 99213

== ENCOUNTER → 2023-12-12 09:15 | Outpatient (BNVA) | payer OTHER, SELFPAY | PROVIDERS: PCP Internal Medicine; Visit Provider Surgery | DX: Z09 Encounter for follow-up examination after completed treatment for conditions other than malignant neoplasm (principal); Z98.890 Other specified postprocedural states; Z85.828 Personal history of other malignant neoplasm of skin | CPT/HCPCS: 99212 ==

== ENCOUNTER 2024-01-06 10:23 | Outpatient (AMB) | payer OTHER, SELFPAY ==
--- NOTE | 2024-01-06 07:58 | A.OFFVIS_ITS ---
Intake Visit Reasons: Current Smoker Allergies Penicillins Allergy (Verified 07/27/23 12:54) Rash HPI HPI Current Smoker: Details: Initial visit for this 63yo smoker with a 45PYH. Patient has been smoking since age 15 for 48 years at 1ppd. . Denies marijuana use. Denies second hand smoke exposure. 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 . Denies known family history of lung cancer. Reports personal history of skin cancer - BCC (left neck - excised 2023) Denies chest CT in last year. . Denies recent travel outside the [place]. Denies recent respiratory illness or recent hospitalization for respiratory is sues. Denies testing positive for COVID. Admits receiving COVID Vaccine. . Denies fever, chills, new/worsening cough, hemoptysis, hoarseness or dysphagia. Denies significant chest pain, significant dyspnea or unintentional weight loss. Patient Lung Cancer Screening Questionnaire reviewed with patient by provider. . Shared Decision Making Completed. Patient meets criteria. Discussed in detail with patient, the risk vs benefit of LDCT screening. Patient consents to proceed with scan. Discussed smoking cessation. [facility] Medical History (Updated 01/06/24 @ 10:30 by Kristen Perdue PA-C) Lumbar disc disease History of basal cell carcinoma (BCC) GERD (gastroesophageal reflux disease) Anxiety and depression Nicotine dependence, cigarettes, uncomplicated Hx of fracture of leg Surgical History (Updated 01/02/24 @ 12:00 by Kristen Perdue PA-C) History of colonoscopy History of basal cell carcinoma (BCC) excision History of back surgery Family History Father No problems noted. Mother Heart attack Brother Throat cancer Brother Substance use disorder Social History (Updated 01/06/24 @ 10:30 by Kristen Perdue PA-C) Household Members Other:: lives with brother,disability for lumbar DJD, divorc ed, 2 adult daughters Housing: House Alcohol intake: former Year quit: 2008 Patient Tobacco Use Status: Current everyday Tobacco user Tobacco use type: Cigarette Cigarette Packs Per Day: 1 Years Smoked: onset 15yo, 1ppd x 48yrs, 45pyh e-Cigarette/Vaping Use: Never Used Current occupational status: unemployed Cognitive needs: No Hearing needs: No Vision needs: Yes Assessment & Plan Assessment & Plan (1) Nicotine dependence, cigarettes, uncomplicated: Comment: (current smoker - onset 15yo, 1ppd x 48yrs, 45pyh) Code(s): F17.210 - Nicotine dependence, cigarettes, uncomplicated Category: Medical Plan: - SDM visit completed today in office. - Patient meets criteria for LDCT for lung cancer screening purposes and is asymptomatic. - Smoking cessation counseling offered. Patients can always call [phone]. - Will arrange for a LDCT scan of the chest for screening purposes at [facility]. - Risks, benefits, and alternatives were discussed in detail and the patient agrees to proceed. - Risks discussed include but are not limited to: radiation exposure, anxiety during testing and while awaiting results, false negatives, false positives and possibility of additional intervention such as further imaging or surgical procedures for benign disease. - Benefits are obviously detection of lung cancer at an early stage which can lead to improved outcomes. - Discussed the importance of screening program compliance with adherence to yearly LDCT scan as scheduled - or sooner interval scans for personalized screening regimen. - Discussed follow up plan. Our office will send a letter discussing results and if needed set up phone call and office visit based on CT findings. - Patient educated on results categorization and the management decisions for suspicious findings potentially found on the screening LDCT scan. Any patient with a Lung RADS score of 3 or 4 will be reviewed by a multidisciplinary team at [facility] to form a plan of action in regards to scan findings. - If further work up is warranted for a suspicious lung finding this will be followed by the Lung Cancer Screening program in conjunction with the Thoracic Surgery Department at [facility]. - A copy of the office note and LDCT will be sent to the patient's PCP - as well as documentation on any associated further plans of care. - Incidental findings on LDCT are the PCP's responsibility. These findings are indicated with an S finding on the LDCT Assessment. A note discussing the findings will be sent to the PCP who is then responsible for further management. - All questions answered.? Coding Level of Care Code Lung Cancer Screening G0296 Diagnoses Nicotine dependence, cigarettes, uncomplicated F17.210
== END 2024-01-06 10:50 | disposition home or self-care (01) ==
PROVIDERS: PCP Internal Medicine; Referring Provider Internal Medicine; Visit Provider Physician Assistant Medical
DX: F17.210 Nicotine dependence, cigarettes, uncomplicated (principal)
CPT/HCPCS: G0296

== ENCOUNTER 2024-01-06 10:38 | Outpatient (REF) | payer OTHER, SELFPAY ==
--- NOTE | ~2024-01-06 | CT_ITS ---
EXAMINATION: CT LOW-DOSE SCREENING CHEST WITHOUT CONTRAST CLINICAL INFORMATION: Nicotine dependence, cigarettes, uncomplicated. Patient is a current smoker with a 47 pack-year history of smoking. COMPARISON: None available. TECHNIQUE: Multidetector volumetric CT imaging of the chest is performed on a Siemens SOMATOM Definition scanner without contrast using low dose technique. Additional 2D coronal and sagittal reformatted images and axial 3D maximum intensity projection (MIP) images are generated on the CT workstation. This CT examination was performed using dose optimization techniques as appropriate, variously including the following: *Automated exposure control *Adjustment of mA and/or kV according to patient size (this includes techniques or standardized protocols for targeted exams where dose is matched to indication/reason for exam; i.e. extremities or head) *Use of iterative reconstruction technique TOTAL EXAM DLP: 41 mGy-cm. CTDIvol: 1.09 mGy. FINDINGS: PULMONARY NODULES: There is a 3 mm subpleural nodule in the right upper lobe (5:168). No suspicious lung mass is seen. LUNGS: Lungs bilaterally symmetrically expanded. Right upper lobe atelectasis is present. Moderate emphysema along with mild bronchial thickening. No effusion or pneumothorax. Central airways patent. MEDIASTINUM: No mediastinal, hilar or axillary adenopathy or free fluid collection. CORONARY ARTERY CALCIFICATION: Mild. THYROID GLAND: Unremarkable to the extent seen. CARDIOVASCULAR STRUCTURES: Aortic and heart size normal. No pericardial effusion. CHEST WALL/AXILLA: Unremarkable. UPPER ABDOMEN: Included portions of the solid organs in the upper abdomen unremarkable on noncontrast imaging. OSSEOUS STRUCTURES: No suspicious focal findings. CT/CT lung screening IMPRESSION: No suspicious lung nodules are seen. ASSESSMENT: 1. Lung-RADS Category 2: Benign appearance or behavior of nodules. N/A 2. Lung-RADS Category S: Negative. There are no clinically significant or potentially clinically significant findings not related to the lungs requiring urgent additional evaluation. RECOMMENDATION: Continued routine annual low-dose CT lung screening in 1 year is recommended. An order for CT CHEST LOW DOSE CANCER SCREENING ([id number]) can be placed. Electronically signed by: Sebastián Prieto MD 01/09/2024 09:55 PM EDT
== END 2024-01-06 10:39 | disposition home or self-care (01) ==
LOC: HO.CT 10:38
PROVIDERS: PCP Internal Medicine; Visit Provider Physician Assistant Medical
DX: Z12.2 Encounter for screening for malignant neoplasm of respiratory organs (principal); F17.210 Nicotine dependence, cigarettes, uncomplicated
CPT/HCPCS: 71271; G0296

== ENCOUNTER 2024-06-18 09:28 | Outpatient (AMB) | payer OTHER, SELFPAY ==
--- NOTE | 2024-06-18 09:30 | MHC.OFFVIS ---
Intake Visit Reasons: S/p wle left neck skin cancer Intake Note: Patient scheduled today's appointment to re-check wound site on Lt neck. Patient c/o: numbness at surgical site on neck. Skin feels tight. Does not wish to schedule dermatology consult. Reports recent lung scan normal. Being followed by pcp Dr. Dc. Hx:wide local excision left neck/ basal cell carcinoma on 07-08-2023 Cook Dessert Required: No Accompanied by: Self / Same As Patient Allergies Penicillins Allergy (Verified 06/18/24 09:36) Rash HPI Comments Details: Patient presents for follow-up. No new issues or complaints. He continues to smoking. Patient was also in the lung cancer screening clinic. [facility] Medical History Lumbar disc disease History of basal cell carcinoma (BCC) GERD (gastroesophageal reflux disease) Anxiety and depression Nicotine dependence, cigarettes, uncomplicated Hx of fracture of leg Surgical History History of colonoscopy History of basal cell carcinoma (BCC) excision History of back surgery Family History Father No problems noted. Mother Heart attack Brother Throat cancer Brother Substance use disorder Social History Household Members Other:: lives with brother,disability for lumbar DJD, , 2 adult daughters Housing: House Alcohol intake: former Year quit: 2008 Patient Tobacco Use Status: Current everyday Tobacco user Tobacco use type: Cigarette Cigarette Packs Per Day: 1 Years Smoked: onset 15yo, 1ppd x 48yrs, 45pyh e-Cigarette/Vaping Use: Never Used Current occupational status: unemployed Cognitive needs: No Hearing needs: No Vision needs: Yes Physical Exam Neck Other: Incision well healed. No evidence of any recurrence. No other concerning issues. No cervica, l periclavicular, 0 axillary adenopathy. Chest Other: Chest breath sounds bilaterally. Patient was quite thin. Assessment & Plan Assessment & Plan (1) History of malignant neoplasm of skin: Code(s): Z85.828 - Personal history of other malignant neoplasm of skin Category: Surgical Plan Patient was otherwise doing well. We will see in 1 year's time for surveillance follow-up. All questions answered. 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
== END 2024-06-18 09:41 | disposition home or self-care (01) ==
PROVIDERS: PCP Internal Medicine; Visit Provider Surgery
DX: Z85.828 Personal history of other malignant neoplasm of skin (principal)
CPT/HCPCS: 99214

== ENCOUNTER → 2024-06-18 09:28 | Outpatient (BNVA) | payer OTHER, SELFPAY | PROVIDERS: PCP Internal Medicine; Visit Provider Surgery | DX: C44.90 Unspecified malignant neoplasm of skin, unspecified (principal) | CPT/HCPCS: 99212 ==

== ENCOUNTER 2024-07-12 12:37 | Outpatient (AMB) | payer MEDICARE, SELFPAY ==
[2024-07-12 12:47] VITALS: BP 138/86; PULSE 104; RESP 18; TEMP 36.8; O2SAT 95; BMI 21.1
--- NOTE | 2024-07-12 12:47 | MHC.PC.OV ---
Vital Signs 07/12/24 12:47 Height 5 ft 8 in Weight 139 lb BMI 21.1 BP 138/86 Blood Pressure Location Lt brachial Position Sitting Respiration 18 Pulse 104 H Pulse Source Pulse Oximeter Temp 98.3 F Temp Source Oral Pulse Oximetry (%) 95 Oxygen Delivery Method Room Air Intake Visit Reasons: stomach issues Intake Note: Pt is here today for a sick visit. Pt c/o abdominal pain on both sides. Allergies Penicillins Allergy (Verified 07/12/24 12:52) Rash Medication List - Last Reconciled 07/12/24 by Pauline Dc MD No Known Home Meds Tobacco use date assessed: 07/12/24 Dental Screening Dental Screen Date: 07/12/24 Did you have a dental visit in the last 12 months?: Yes Did you have a dental problem in the last 6 months where you did not have access to dental care?: No Was dental information given to patient?: Patient has dentist HPI stomach issues HPI Details Patient presents complaining of chronic abdominal pain epigastric and left lower quadrant on and off for few months getting worse over last week. Patient reports decreased appetite and pain getting worse after eating. He reports constipation but denies hematochezia melena fever chills nausea vomiting. [facility] Medical History Lumbar disc disease History of basal cell carcinoma (BCC) GERD (gastroesophageal reflux disease) Anxiety and depression Nicotine dependence, cigarettes, uncomplicated Hx of fracture of leg Surgical History History of colonoscopy History of basal cell carcinoma (BCC) excision History of back surgery Family History Father No problems noted. Mother Heart attack Brother Throat cancer Brother Substance use disorder Social History Household Members Other:: lives with brother,disability for lumbar DJD, , 2 adult daughters Housing: House Alcohol intake: former Year quit: 2008 Patient Tobacco Use Status: Current everyday Tobacco user Tobacco use type: Cigarette Cigarette Packs Per Day: 1 Cigarettes Per Day: 20 Years Smoked: onset 15yo, 1ppd x 48yrs, 45pyh Packs Per Year: 0 Packs per year/per ci.00 e-Cigarette/Vaping Use: Never Used service: No Current occupational status: unemployed Cognitive needs: No Hearing needs: No Vision needs: Yes Questionnaire PHQ-9 Over the last 2 weeks, how often have you been bothered by any of the following problems? 1. Little interest or pleasure in doing things: several days 2. Feeling down, depressed, or hopeless: not at all 3. Trouble falling or staying asleep, or sleeping too much: not at all 4. Feeling tired or having little energy: more than half the days 5. Poor appetite or overeating: more than half the days 6. Feeling bad about yourself - or that you are a failure or have let yourself or your family down: not at all 7. Trouble concentrating on things, such as reading the newspaper or watching television: not at all 8. Moving or speaking so slowly that other people could have noticed. Or the opposite - being so fidgety or restless that you have been moving around a lot more than usual: not at all 9. Thoughts that you would be better off or of hurting yourself in some way: not at all Total score: 5 Depression Screening Interpretation: Negative Depression Screening Done: Yes 78713 - PHQ-9 Billing: Yes Source: Developed by Drs. Shen Ware, Jonna Guevara, Mac Dial and colleagues, with an educational marito from [employer]. Thrive Questionnaire Date Thrive assessed: 07/12/24 I am a: Patient What is your living situation today?: I have a steady place to live THRIVE Score: 0 AUDIT C Alcohol Use Questionnaire (AUDIT-C) 1. How often do you have a drink containing alcohol?: Never 3. How often do you have six or more drinks on one occasion?: Never Total Score: 0 NATIVIDAD-7 AMB Questionnaire NATIVIDAD-7 Date NATIVIDAD - 7 assessed: 06/21/23 Feeling nervous, anxious, or on edge: 0 = Not at all Not being able to stop or control worryin = Not at all Worrying too much about different things: 0 = Not at all Trouble relaxin = Not at all Being so restless that it is hard to sit still: 0 = Not at all Becoming easily annoyed or irritable: 0 = Not at all Feeling afraid as if something awful might happen: 0 = Not at all Total NATIVIDAD-7 score (0-4 normal; 5-9 mild; 10-14 moderate; 15-21 severe): 0 Source: Developed by Drs. Shen Ware, Jonna Guevara, Mac Dial and colleagues, with an educational marito from [employer] [place]. NATIVIDAD-7 Assessment Billing NATIVIDAD-7 Assessment Tool: NATIVIDAD-7 Assessment 15704 Review of Systems Const All systems reviewed & are unremarkable except as noted in HPI and below Eyes Reports no additional complaints ENT Reports no additional complaints Card Reports no additional complaints Resp Reports no additional complaints GI Reports no additional complaints Reports no additional complaints Physical exam (Primary Care) Vital Signs: Last Vital Signs Temp 98.3 F 07/12/24 12:47 Pulse 104 H 07/12/24 12:47 Resp 18 07/12/24 12:47 BP 138/86 07/12/24 12:47 Pulse Ox 95 07/12/24 12:47 Oxygen Delivery Method Room Air 07/12/24 12:47 BMI result Body Mass Index 21.1 Tobacco/Smoking Status: Tobacco use Status Tobacco use date assessed 07/12/24 07/12/24 12:49 Patient Tobacco Use Status Current everyday Tobacco 07/12/24 12:49 Tobacco use type Cigarette 07/12/24 12:49 e-Cigarette/Vaping Use Never Used 07/12/24 12:49 PHQ-9: PHQ-9 Score PHQ-9: Total score 5 07/12/24 12:49 Depression Screening Interpretation: Negative Thrive Assessment: Date of Thrive Assessment Date Thrive assessed 07/12/24 07/12/24 12:49 Const General: no acute distress Nutritional Appearance: underweight HENMT Head: Yes normal to inspection Mouth: Normal oral and palatal mucosa present Neck Neck: Yes supple Resp Effort & Inspection: normal respiratory effort Auscultation: clear to auscultation bilaterally Cardio Rhythm: regular rhythm Heart sounds: S1 normal heart sound present and S2 normal heart sound present GI Inspection: Yes normal to inspection Palpation (GI): Tenderness to palpation present (GI) in the epigastrum and in the LLQ and no guarding Percussion: Yes normal to percussion Auscultation: normal bowel sounds Coding Level of Care Code Est Pt Level 3 (36257) Diagnoses Abdominal pain R10.9 GERD (gastroesophageal reflux disease) K21.9 Diverticulitis K57.92 Additional Codes NATIVIDAD-7 Assessment Billing - NATIVIDAD-7 Assessment Tool: NATIVIDAD-7 Assessment 02750 ([id number]) PHQ-9 - 70725 - PHQ-9 Billing: Yes ([id number]) Assessment & Plan Assessment & Plan (1) Abdominal pain: Comment: epigastric and LUQ Code(s): R10.9 - Unspecified abdominal pain Category: Medical Plan: FOR WORSENING ABDOMINAL PAIN CT OF THE ABDOMEN AND PELVIS WILL BE OBTAINED TO RULE OUT DIVERTICULITIS. OMEPRAZOLE 20 MG DAILY IS PRESCRIBED. PATIENT WILL BE REFERRED TO GI FOR EGD AND COLONOSCOPY. OBTAIN COMPREHENSIVE PANEL CBC AND LIPASE (2) GERD (gastroesophageal reflux disease): Comment: long standing Code(s): K21.9 - Gastro-esophageal reflux disease without esophagitis Category: Medical Plan: Restart omeprazole referred to GI for EGD (3) Diverticulitis: Code(s): K57.92 - Diverticulitis of intestine, part unspecified, without perforation or abscess without bleeding Category: Medical Plan: Obtain CT of the abdomen and pelvis referred to GI Orders: Orders Complete Blood Count Auto Diff Today K21.9 - Gastro-esophageal reflux disease without esophagitis, R10.9 - Unspecified abdominal pain UA w Microscopic Today K21.9 - Gastro-esophageal reflux disease without esophagitis, R10.9 - Unspecified abdominal pain Comprehensive Met. Panel Today K21.9 - Gastro-esophageal reflux disease without esophagitis, R10.9 - Unspecified abdominal pain Lipase Today K21.9 - Gastro-esophageal reflux disease without esophagitis, R10.9 - Unspecified abdominal pain CT abdomen pelvis w IV con Today K57.92 - Diverticulitis of intestine, part unspecified, without perforation or abscess without bleeding, R10.9 - Unspecified abdominal pain Referrals Gastroenterology Referral K21.9 - Gastro-esophageal reflux disease without esophagitis, R10.9 - Unspecified abdominal pain Medications: New omeprazole 20 mg PO DAILY 30 caps 2RF
--- OUTSIDE RECORDS SUMMARY | 2024-07-12 15:09 | XMS_ITS | Data Portability ---
Author Organization [facility], [address] Address [address] [place] [address] Assessment No assessment recorded. Plan of Treatment Reminders Order Date Submit Date Provider Last Modified By Organization Details Last Modified Time Details Appointments None recorded. Lab urinalysis, dipstick 2022 023 JODIE 20999[facility], [address] [place] [address], [id number], 09:33:25 Referral None recorded. Procedures None recorded. Surgeries None recorded. Imaging None recorded. Medication Orders erythromyci n 5 mg/gram (0.5 %) eye ointment 2021 022 [id number] [id number], [address] [facility], [place], [address], 09:01:13 Patient TargetsNo targets recorded. Patient Instructions Encounter Date Encounter Id Patient Instructions Last Modified By Organization Details Last Modified Time 02/02/2023 [id number] Based on your ex am and presentation my recommendation if for you to go immediately to the Emergency Room. The ER is better equipped to be able to assess you and do more studies to make sure that your complaint is not life threatening. Unfortunately, in the urgent care setting we do not have the ability to do many tests and studies. My concern is for you, which is why my recommendation is the Emergency Room. Not available 02/02/2023 09:30:01 A/P: Anxiety wit h abdominal pain is a stable patient. Advised going to ER today for in person evaluation. Patient understood and agreed to plan. TRANSFER FORM faxed to hospital [email or web address] Not available 02/02/2023 12:58:25 Reason for Referral None Reported. Results Created Date Observation Date Name Description Value Unit Range Abnormal Flag Note LastModifiedBy Organization Detail LastModifiedTime 02/03/2002/02/2023 urina lysis , dipst ick Unknown Analyte Light Yellow Not Available brittney martinez [address] [place], [address], 02/02/2023 09:16:07 02/03/2002/02/2023 urina lysis , dipst ick Unknown Analyte Clear Not Available _ jazlyn [address] [place], [address], 02/02/2023 09:16:07 02/03/2002/02/2023 urina lysis , dipst ick Unknown Analyte Negati ve Not Available _brittney martinez [address] [place], [address], 02/02/2023 09:16:07 02/03/20 23 02/02/2023 urina lysis , dipst ick Unknown Analyte Negati ve Not Available brittney martinez [address] [place], [address], 02/02/2023 09:16:07 02/03/20 23 02/02/2023 urina lysis , dipst ick Unknown Analyte Negati ve Not Available _brittney martinez [address] [place], [address], 02/02/2023 09:16:07 02/03/20 23 02/02/2023 urina lysis , dipst ick Unknown Analyte 1.010 Not Available _ jazlyn [address] [place], [address], 02/02/2023 09:16:07 02/03/20 23 02/02/2023 urina lysis , dipst ick Unknown Analyte Negati ve Not Available brittney martinez [address] [place], [address], 02/02/2023 09:16:07 02/03/2002/02/2023 urina lysis , dipst ick Unknown Analyte 6.0 Not Available [address]azlyn [address], [address], 02/02/2023 09:16:07 02/03/2002/02/2023 urina lysis , dipst ick Unknown Analyte Negati ve Not Available [address]inez [address], [address], 02/02/2023 09:16:07 02/03/2002/02/2023 urina lysis , dipst ick Unknown Analyte 0.2 E.U./d L Not Available brittney martinez [address] [place], [address], 02/02/2023 09:16:07 02/03/2002/02/2023 urina lysis , dipst ick Unknown Analyte Negati ve Not Available brittney martinez [address] [place], [address], 02/02/2023 09:16:07 02/03/2002/02/2023 urina lysis , dipst ick Unknown Analyte Negati ve Not Available brittney martinez [address] [place], [address], 02/02/2023 09:16:07 Result Notes None recorded. Problems Name Problem SNOMED Code Status Onset Date Resolution Date Notes Provider Name and Address Organization Details Recorded Time Anxiety 33692035 Active 023 CANDY Allen - [facility] 02/02/2023 09:01:36 Problem Notes None recorded. Procedures Surgical History Date Name Laterality Status Provider Name and Address Organization Details Recorded Time 12/30/202 2 Blank Template completed CAND[place], [address], [place] - [facility] 05/07/2022 09:55:32 Imaging Results None recorded. Procedure Notes None recorded. Medical Equipment None Reported. Allergies Allergen ID Allergen Name Allergen Category Reaction Reaction Severity Criticality Documentation Date Start Date Code Code System Note Provider Name and Address Organization Details Recorded Time 15645 Product containin g penicilli n (product) medicatio n rash Not available Not available 05/07/2022 53355 8001 SNOMED Marisa subramanian PA - [facility] 2 09:11:23 Medications Name Sig Start Date Stop Date Status Note LastModified by Organization Details LastModified Time erythromyci n 5 mg/gram (0.5 %) eye ointment APPLY 1 APPLICATI ON 4 TIMES A DAY INTO AFFECTED EYE FOR 7 DAYS 02/02 completed Not Available Not Available Not Available Vitals Date Recorded Body height Body mass index (BMI) Body weight Oxygen saturation Oxygen saturation in Arterial blood by Pulse oximetry Heart rate Respiratory rate Body temperature Pain severity - 0-10 verbal numeric rating [Score] - Reported Systolic blood pressure Diastolic blood pressure Provider Name and Address Organization Details Last Updated DateTime 2 175.26 cm 23.6 kg/m2 74074.7 8 g 100 % 100 % 68 /min 18 /min 97.7 [degF] 10 111 mm[Hg] 81 mm[Hg] Marisa Branham PA - [facility] 2 09:13:35 Date Recorded Body height Body mass index (BMI) Body weight Respiratory rate Body temperature Oxygen saturation Oxygen saturation in Arterial blood by Pulse oximetry Heart rate Systolic blood pressure Diastolic blood pressure Provider Name and Address Organization Details Last Updated DateTime 3 175.26 cm 24.4 kg/m2 87095.7 4 g 18 /min 97.1 [degF] 97 % 97 % 83 /min 133 mm[Hg] 88 mm[Hg] ES BONILLA PA - [facility] 3 09:04:33 Social History Question Answer Notes LastModified by Organizat ion Details LastModified Time Tobacco Smoking Status Current Every Day Smoker CANDY Coon - [facility] 05/07/2022 09:12:11 What Is Your Level Of Alcohol Consumption? None Information not available 05/07/2022 Have You Had Direct Contact, Or Contact During Intimacy, With Monkeypox Rash, Scabs, Or Body Fluids From A Person With Monkeypox? No Information not available 05/07/2022 What Is Your Current Pack Years? 30ormorepack years Information not available 05/07/2022 How Much Tobacco Do You Smoke? 1 PPD Information not available 05/07/2022 Do You Use Any Illicit Or Recreational Drugs? No Information not available 05/07/2022 Have You Recently Traveled Abroad? No Information not available 05/07/2022 Do You Or Have You Ever Used Any Other Forms Of Tobacco Or Nicotine? No Information not available 05/07/2022 Sex: Unknown Functional Status None recorded. Mental Status None recorded. Family History Relationship Description Onset Age of this Age Resolved Age Notes LastModified by Organization Details LastModified Time Father No current problems or disability Not available 05/07 09:11:44 Mother No current problems or disability Not available 05/07 09:11:44 Medical History No medical history recorded. Past Encounters Encounter ID Performer Location Encounter Start Date Encounter Closed Date Diagnosis/Indication Diagnosis SNOMED-CT Code Diagnosis ICD10 Code Diagnosis Note [id number] CANDY RICHTER [address] [place] [address] 05/07/2022 08:57:59 05/07/2022 10:00:23 Abrasion of left cornea 7222085715 [id number] S05.02XA Your exam today is consistent with injury to left cornea.Rory ly antibiotic eye ointment as prescribed to inside of left lower eyelid.May give Motrin or Tylenol for pain as needed.Fol low up with Ophthalmol ogist within 1 week for reassessme nt, especially if symptoms are not improving. Go To ER if symptoms worsen to include worsening pain, loss of vision, blurry vision, bleeding from eye or with concerns. [id number] CANDY MELLO [address] [place] [address] 02/02/2023 08:32:10 02/02/2023 09:34:46 Stomach cramps 76667121 R10.9 Abdominal pain 55458644 R10.9 Anxiety 13780896 F41.9 Health Concerns Section Related Observation LastModified by Organization Detai ls LastModified Time None Recorded Concern Status LastModified by Organization Details LastModified Time None Recorded Advance Directives Directive None Recorded Payers Encounter Date Sequence Insurance Name Policy Number Policy Gonzales Covered Member ID Gonzales Member ID Guarantor Name 05/07/2022 1 Appoint[employer]d [employer] Christag Lasway [id number] Srini Lasway 02/02/2023 1 [employer] (MEDICARE REPLACEMENT/A DVANTAGE - PPO) Ariel Lashway [id number] Srini Lasway 02/02/2023 2 [place]: [facility] [address] Srini Liriano Lasway [id number] [facility] Notes Date Note Type Note Provider Name and Address Organization Details Recorded Time 2 text/html Srini is a 61 yo M here for evaluation of left eye irritation and pain onset this morning at 3 am. Thinks his dog kicked him in the eye last night or he scratched his eye without realizing it. Tried washing it out this morning. Warm compress helped a bit. Eye is swollen and has pain and light sensitivity with opening it. + watery discharge, no pus. No obvious vision changes when forcing eye open. Notes slight blurry vision but equates it to watering eyes. Able to open eye on his own in clinic and notes it is improved since onset earlier this morning. Denies contact lens use. CANDY LONG [address] [place], [address], [place] - [facility] 05/07/2022 09:57:53 3 text/html Generic HPI TemplateReported bypatient.source of patient informationInformation obtained from patient; Patient arrived at Urgent Care ambulatory Context:no foreign travelNotes:62 y.o male pt presents with lower abdominal pain that is worse on the left side and increased anxious feelings that started late last night/early this morning. Pt has had abdominal/back surgery back in 2011. He states he has had panic attacks before in the past which feel similar. PT DENIES fever, N/V/D, URINARY SX'S, CHEST PAIN, SOB, Palpitations CANDY MELLO [facility] [place], [place], [address], [place] - [facility] 02/02/2023 12:58:38
== END 2024-07-12 14:04 | disposition home or self-care (01) ==
PROVIDERS: PCP Internal Medicine; Visit Provider Internal Medicine
DX: R10.9 Unspecified abdominal pain (principal); K21.9 Gastro-esophageal reflux disease without esophagitis; K57.92 Diverticulitis of intestine, part unspecified, without perforation or abscess without bleeding

== ENCOUNTER → 2024-07-12 12:37 | Outpatient (BNVA) | payer MEDICARE, SELFPAY | PROVIDERS: PCP Internal Medicine; Visit Provider Internal Medicine | DX: R10.9 Unspecified abdominal pain (principal); K21.9 Gastro-esophageal reflux disease without esophagitis; K57.92 Diverticulitis of intestine, part unspecified, without perforation or abscess without bleeding | CPT/HCPCS: 96127; 99212 ==

== ENCOUNTER 2024-08-13 06:37 | Outpatient (REF) | payer MEDICARE, SELFPAY ==
--- NOTE | ~2024-08-13 | CT_ITS ---
EXAMINATION: CT ABDOMEN PELVIS WITH IV CONTRAST HISTORY: R10.9 - Unspecified abdominal pain COMPARISON: There are no prior studies for comparison. TECHNIQUE: CT scan of the abdomen and pelvis was performed following administration of 85 mL Omnipaque 350 using standard departmental protocol. Coronal and sagittal reformatted images were generated and reviewed. Oral contrast material was not administered at the request of the referring physician. This CT exam was performed with one or more of the following dose reduction techniques: automated exposure control, adjustment of the mA and/or kV according to patient size, use of iterative reconstruction technique. DLP: 223 mGy-cm FINDINGS: LOWER CHEST: There is airspace opacity in the lingula and left lower lobe, suggestive of pneumonia. The visualized right lung base is clear. There is no pleural effusion. CARDIOVASCULATURE: The heart is normal in size. There is no pericardial effusion. LIVER: The liver is normal in size and contour. No liver mass is identified. The hepatic and portal veins are patent. GALLBLADDER / BILE DUCTS: The gallbladder is contracted. There is no intra or extrahepatic biliary ductal dilatation. SPLEEN: The spleen is normal in size. No focal splenic lesion is identified. PANCREAS: The pancreas is unremarkable in appearance. ADRENAL GLANDS: Within normal limits. KIDNEYS/RETROPERITONEUM: No renal calculi are identified. There is no hydronephrosis. No renal masses are identified. LYMPH NODES: No abdominal or pelvic lymphadenopathy. VASCULATURE: The abdominal aorta demonstrates atherosclerotic calcification, but is normal in caliber. MESENTERY/PERITONEUM: No free fluid. No masses. There is no free intraperitoneal gas. STOMACH: The stomach is unremarkable. SMALL BOWEL: The small bowel is normal in caliber. COLON: There is an extremely large amount of stool throughout the colon. APPENDIX: The appendix is not seen, however no inflammatory changes are seen adjacent to the cecum. URINARY BLADDER/PELVIC ORGANS: The urinary bladder is collapsed, limiting evaluation. The prostate is normal in size. BONES / SOFT TISSUES: The patient is status post anterior fusion of L5 and S1. CT/CT abdomen pelvis w IV con IMPRESSION: 1. Airspace opacity in the lingula and left lower lobe, suggestive of pneumonia. 2. Extremely large amount of stool throughout the colon. Electronically signed by: Shen Harris MD 08/13/2024 12:08 PM EDT RP
--- OUTSIDE RECORDS SUMMARY | 2024-08-13 06:40 | XMS_ITS | Data Portability ---
Author Organization [facility], [address] Address [address] [place] [address] Assessment No assessment recorded. Plan of Treatment Reminders Order Date Submit Date Provider Last Modified By Organization Details Last Modified Time Details Appointments None recorded. Lab urinalysis, dipstick 2022 023 JODIE 20999_[facility], [address] [place] [address], [address], 09:33:25 Referral None recorded. Procedures None recorded. Surgeries None recorded. Imaging None recorded. Medication Orders erythromyci n 5 mg/gram (0.5 %) eye ointment 2021 022 [email or web address] [facility]/Pharmacy #[id number], [address] [facility], [place], [address], 09:01:13 Patient TargetsNo targets recorded. Patient Instructions Encounter Date Encounter Id Patient Instructions Last Modified By Organization Details Last Modified Time 02/02/2023 [id number] Based on your ex am and presentation [...] to plan. TRANSFER FORM faxed to hospital [email or web address] Not available 02/02/2023 12:58:25 Reason for Referral None Reported. Results Created Date Observation Date Name Description Value Unit Range Abnormal Flag Note LastModifiedBy Organization Detail LastModifiedTime 02/03/2002/02/2023 urina lysis , dipst ick Unknown Analyte Light Yellow Not Available brittney martinez [address] [place], [address], 02/02/2023 09:16:07 02/03/2002/02/2023 urina lysis , dipst ick Unknown Analyte Clear Not Available _ jazlyn [address] [place], [address], 02/02/2023 09:16:07 02/03/2002/02/2023 urina lysis , dipst ick Unknown Analyte Negati ve Not Available _brittney martinez [address] [place], [address], 02/02/2023 09:16:07 02/03/20 23 02/02/2023 urina lysis , dipst ick Unknown Analyte Negati ve Not Available brittney martinez [address] [place], [address], 02/02/2023 09:16:07 02/03/20 23 02/02/2023 urina lysis , dipst ick Unknown Analyte Negati ve Not Available _brittney martinez [address] [place], [address], 02/02/2023 09:16:07 02/03/20 23 02/02/2023 urina lysis , dipst ick Unknown Analyte 1.010 Not Available _ jazlyn [address] [place], [address], 02/02/2023 09:16:07 02/03/20 23 02/02/2023 urina lysis , dipst ick Unknown Analyte Negati ve Not Available brittney martinez [address] [place], [address], 02/02/2023 09:16:07 02/03/2002/02/2023 urina lysis , dipst ick Unknown Analyte 6.0 Not Available [address]azlyn [address], [address], 02/02/2023 09:16:07 02/03/2002/02/2023 urina lysis , dipst ick Unknown Analyte Negati ve Not Available [address]ittney martinez [address], [address], 02/02/2023 09:16:07 02/03/2002/02/2023 urina lysis , dipst ick Unknown Analyte 0.2 E.U./d L Not Available brittney martinez [address] [place] [address], 02/02/2023 09:16:07 02/03/2002/02/2023 urina lysis , dipst ick Unknown Analyte Negati ve Not Available brittney martinez [address] [place], [address], 02/02/2023 09:16:07 02/03/2002/02/2023 urina lysis , dipst ick Unknown Analyte Negati ve Not Available brittney martinez [address] [place], [address], 02/02/2023 09:16:07 Result Notes None recorded. Problems Name Problem SNOMED Code Status Onset Date Resolution Date Notes Provider Name and Address Organization Details Recorded Time Anxiety 29878233 Active 023 CANDY Allen - [facility] 02/02/2023 09:01:36 Problem Notes None recorded. Procedures Surgical History Date Name Laterality Status Provider Name and Address Organization Details Recorded Time 12/30/202 2 Blank Template completed CANDY BAL[place], [address], [place] - [facility] 05/07/2022 09:55:32 Imaging Results None recorded. Procedure Notes None recorded. Medical Equipment None Reported. Allergies Allergen ID Allergen Name Allergen Category Reaction Reaction Severity Criticality Documentation Date Start Date Code Code System Note Provider Name and Address Organization Details Recorded Time 86212 Product containin g penicilli n (product) medicatio n rash Not available Not available 05/07/2022 17715 8001 SNOMED Marisa subramanian [facility] - [facility] [...] Updated DateTime 2 175.26 cm 23.6 kg/m2 17491.7 8 g 100 % 100 % 68 [...] Updated DateTime 3 175.26 cm 24.4 kg/m2 72455.7 4 g 18 /min 97.1 [degF] 97 [...] SNOMED-CT Code Diagnosis ICD10 Code Diagnosis Note [id number] CANDY RICHTER [address] [place] [address] 05/07/2022 08:57:59 05/07/2022 10:00:23 Abrasion of left cornea 3859303519 2871733 S05.02XA Your exam today is consistent with [...] vision, bleeding from eye or with concerns. [id number] CANDY MELLO [address] [place] [address] 02/02/2023 08:32:10 02/02/2023 09:34:46 Stomach cramps 09634975 R10.9 Abdominal pain 34769638 R10.9 Anxiety 34958382 F41.9 Health Concerns Section Related Observation LastModified by Organization Detai ls LastModified Time None Recorded Concern Status LastModified by Organization Details LastModified Time None Recorded Advance Directives Directive None Recorded Payers Encounter Date Sequence Insurance Name Policy Number Policy Gonzales Covered Member ID Gonzales Member ID Guarantor Name 05/07/2022 1 [employer] Christag Lasway [id number] Srini Lasway 02/02/2023 1 WELLC[employer] (MEDICARE REPLACEMENT/A DVANTAGE - PPO) Ariel Lashway [id number] Srini Lasway 02/02/2023 2 [place] [facility] Srini Liriano Lasway [id number] [facility] Notes Date Note Type Note Provider Name [...] CANDY LONG [address] [place], [address], [place] - [facility] 05/07/2022 09:57:53 3 [...] SX'S, CHEST PAIN, SOB, Palpitations CANDY MELLO [facility] [place], [place], [address], [place] - [facility] 02/02/2023 12:58:38
[2024-08-13 10:13] LABS: Appearance Urine Clear; Color Urine Yellow; Glucose Urine UA Negative (Negative); Leukocyte Esterase Urine Trace (Negative); Nitrite Urine Negative (Negative); PH 5.5 (5.0-9.0); Specific Gravity - Urine 1.025 (1.005-1.025); UMIC TRIGGER UA YES; Urine Blood Negative (Negative); Urine Ketones Trace mg/dL (Negative); Urine Protein Negative (Neg-Trace)
[2024-08-13 10:21] LABS: Bacteria Urine None Seen (None Seen); Hyaline Casts Urine 0-2 /LPF (0-2); RBC Urine 0-2 /HPF (0-2); Squamous Epithelial Cell Urine 0-2 /HPF (0-2); WBC Urine 0-5 /HPF (0-5)
[2024-08-13 10:28] LABS: MANUAL DIFF FLAG NO
[2024-08-13 10:49] LABS: Basophils Absolute Auto 0.1 X10*3/uL (0.0-0.2); Basophils Percent Auto 0.9 % (0-2); Eosinophils Absolute Auto 0.7 X10*3/uL (0.0-0.4); Eosinophils Percent Auto 6.8 % (0-4); Hematocrit 39.1 % (42.0-52.0); Hemoglobin 12.9 g/dl (14.0-18.0); Imm Gran Abs Auto 0.03 X10*3/uL (0.00-0.03); Imm Gran Pct Auto 0.3 % (0.0-0.4); Lymphocytes Percent Auto 28.4 % (20-40); Mean Corpuscular Hemoglobin 29.4 pg (27.0-33.0); Mean Corpuscular Volume 89.1 fL (80.0-98.0); Mean Platelet Volume 8.8 fL (9.4-12.4); Monocytes Absolute Auto 0.9 X10*3/uL (0.1-1.2); Monocytes Percent Auto 8.1 % (2-11); Neutrophils Absolute Auto 5.9 x10*3/uL (2.0-8.3); Neutrophils Percent Auto 55.5 % (45-73); Platelet Count 382 X10*3/uL (160-400); Red Blood Count 4.39 X10*6/uL (4.60-5.80); Red Cell Distribution Width 13.5 % (11.0-16.0); White Blood Count 10.7 X10*3/uL (4.8-10.8)
[2024-08-13 10:58] LABS: Alanine Aminotransferase 16 U/L (0-40); Albumin Level 3.8 g/dL (3.5-5.0); Alkaline Phosphatase 124 U/L (39-117); Anion Gap 10 (12-20); Aspartate Amino Transferase 21 U/L (5-37); Bilirubin Total 0.4 mg/dL (0.0-1.0); Blood Urea Nitrogen 15 mg/dL (9-16); Calcium 9.5 mg/dL (8.4-10.2); Carbon Dioxide 32 mmol/L (22-29); Chloride 101 mmol/L (96-108); Estimated Glomerular Filt Rate > 60; Glucose Random 96 mg/dL (60-115); Lipase 17 U/L (8-78); Potassium 4.6 mmol/L (3.3-5.1); Sodium 138 mmol/L (135-145); Total Protein 6.9 g/dL (6.5-8.0)
[2024-08-13] MEDS: iohexoL 350 MG/ML 75 ML INFUS..BTL 85 ML IV (11:54)
== END 2024-08-13 06:38 | disposition home or self-care (01) ==
LOC: HO.CT 06:37
PROVIDERS: PCP Internal Medicine; Visit Provider Internal Medicine
DX: R10.9 Unspecified abdominal pain (principal); K21.9 Gastro-esophageal reflux disease without esophagitis; K57.92 Diverticulitis of intestine, part unspecified, without perforation or abscess without bleeding
CPT/HCPCS: 36415; 74177; 80053; 81001; 83690; 85025; Q9967

== ENCOUNTER → 2024-08-13 09:48 | Outpatient (BNV) | payer MEDICARE, SELFPAY | PROVIDERS: PCP Internal Medicine; Visit Provider Radiology Diagnostic Radiology | DX: J18.9 Pneumonia, unspecified organism (principal); K59.00 Constipation, unspecified | CPT/HCPCS: 74177 ==

== ENCOUNTER 2024-10-12 10:09 | Outpatient (AMB) | payer MEDICARE, SELFPAY ==
[2024-10-12 10:23] VITALS: BP 104/66; PULSE 103; RESP 20; TEMP 36.7; O2SAT 93; BMI 19.0
--- NOTE | 2024-10-12 10:23 | MHC.PC.OV ---
Vital Signs 10/12/24 10:23 Height 5 ft 8 in Weight 125 lb BMI 19.0 BP 104/66 Blood Pressure Location Lt brachial Position Sitting Respiration 20 Pulse 103 H Pulse Source Pulse Oximeter Temp 98.0 F Temp Source Oral Pulse Oximetry (%) 93 Oxygen Delivery Method Room Air Intake Visit Reasons: Shortness of breath Intake Note: Pt is here today for a sick visit. Pt c/o SOB and pain on the left side of his chest and cough. Allergies Penicillins Allergy (Verified 10/12/24 10:27) Rash Medication List - Last Reconciled 10/12/24 by Pauline Dc MD doxycycline hyclate 100 mg PO BID [methadone PO] omeprazole 20 mg PO DAILY polyethylene glycol 3350 (Miralax) 17 grams PO BID Tobacco use date assessed: 10/12/24 Dental Screening Dental Screen Date: 07/12/24 HPI Shortness of breath HPI Details Pt c/o persistent for a few weeks productive cough, green sputum, dyspnea on exertion and at rest, left upper chest pleurisy and chills but no fever. Patient lost 15 lb in last 2 months. He denies hemoptysis palpitations exertional chest pains GI complaints. He has been cutting down on smoking for the last few weeks down to half pack a day. He used to smoke 2 packs a day for 30+ years. Patient started going to a methadone clinic 2 months ago. [facility] Medical History Lumbar disc disease History of basal cell carcinoma (BCC) GERD (gastroesophageal reflux disease) Anxiety and depression Nicotine dependence, cigarettes, uncomplicated Hx of fracture of leg Surgical History History of colonoscopy History of basal cell carcinoma (BCC) excision History of back surgery Family History Father No problems noted. Mother Heart attack Brother Throat cancer Brother Substance use disorder Social History Household Members Other:: lives with brother,disability for lumbar DJD, , 2 adult daughters Housing: House Alcohol intake: former Year quit: 2008 Patient Tobacco Use Status: Current everyday Tobacco user Tobacco use type: Cigarette Cigarette Packs Per Day: 1 Cigarettes Per Day: 10 Years Smoked: onset 15yo, 1ppd x 48yrs, 45pyh e-Cigarette/Vaping Use: Never Used service: No Current occupational status: unemployed Cognitive needs: No Hearing needs: No Vision needs: Yes Questionnaire Thrive Questionnaire Date Thrive assessed: 07/12/24 I am a: Patient What is your living situation today?: I have a steady place to live THRIVE Score: 0 NATIVIDAD-7 AMB Questionnaire NATIVIDAD-7 Date NATIVIDAD - 7 assessed: 06/21/23 Source: Developed by Drs. Shen Ware, Jonna Guevara, Mac Dial and colleagues, with an educational marito from [employer]. Review of Systems Const All systems reviewed & are unremarkable except as noted in HPI and below Reports no additional complaints Eyes Reports no additional complaints ENT Reports no additional complaints Card Reports no additional complaints Resp Reports no additional complaints GI Reports no additional complaints Reports no additional complaints Physical exam (Primary Care) Vital Signs: Last Vital Signs Temp 98.0 F 10/12/24 10:23 Pulse 103 H 10/12/24 10:23 Resp 20 10/12/24 10:23 BP 104/66 10/12/24 10:23 Pulse Ox 93 10/12/24 10:23 Oxygen Delivery Method Room Air 10/12/24 10:23 BMI result Body Mass Index 19.0 Tobacco/Smoking Status: Tobacco use Status Tobacco use date assessed 10/12/24 10/12/24 10:30 Patient Tobacco Use Status Current everyday Tobacco 10/12/24 10:24 Tobacco use type Cigarette 10/12/24 10:24 e-Cigarette/Vaping Use Never Used 10/12/24 10:24 Thrive Assessment: Date of Thrive Assessment Date Thrive assessed 07/12/24 10/12/24 10:24 Const General: no acute distress HENMT Head: Yes normal to inspection Face and sinus: Yes normal facial exam Neck Neck: Yes supple Resp Effort & Inspection: Actively coughing Auscultation: wheezes and diminished lung sounds Cardio Rhythm: regular rhythm Heart sounds: S1 normal heart sound present and S2 normal heart sound present Coding Level of Care Code Est Pt Level 3 (73772) Diagnoses Cough R05.9 Assessment & Plan Assessment & Plan (1) Cough: Code(s): R05.9 - Cough, unspecified Category: Medical Plan: For persistent productive cough obtain chest x-ray sputum culture and AFB. Treat with doxycycline prednisone taper start Trelegy and albuterol, follow-up in 1 week Orders: Orders XR chest 1V Today J44.9 - Chronic obstructive pulmonary disease, unspecified, R05.9 - Cough, unspecified Sputum Cult + Gram stain Today J44.9 - Chronic obstructive pulmonary disease, unspecified, R05.9 - Cough, unspecified Acid-fast Culture + Smear Today R05.9 - Cough, unspecified, R63.4 - Abnormal weight loss Medications: New doxycycline hyclate 100 mg PO BID 20 tabs 0RF Trelegy Ellipta 100-62.5-25 mcg (vrzfmndsode-bdqmwwnoz-iqepuqjq) 1 inh inhalation DAILY 60 ea 3RF NS albuterol sulfate 90 mcg/actuation 2 puffs inhalation Q6H PRN 8.5 grams 1RF shortness of breath or wheezing prednisone FOUR TABLETS Q.D. FOR 3 DAYS THEN 3 TABLETS P.O. Q.D. FOR 3 DAYS THEN 2 TABLETS P.O. Q.D. FOR 3 DAYS THEN 1 TABLET P.O. Q.D. FOR 3 DAYS 10 mg PO DAILY 30 tabs 0RF benzonatate 100 mg PO TID 30 caps 0RF
--- OUTSIDE RECORDS SUMMARY | 2024-10-12 10:53 | XMS_ITS | Data Portability ---
Author Organization [facility], [address] Address [address] [place] [address] Assessment No assessment recorded. Plan of Treatment Reminders Order Date Submit Date Provider Last Modified By Organization Details Last Modified Time Details Appointments None recorded. Lab urinalysis, dipstick 2022 023 JODIE 20999_[facility], [address] [place] [address], [address], 09:33:25 Referral None recorded. Procedures None recorded. Surgeries None recorded. Imaging None recorded. Medication Orders erythromyci n 5 mg/gram (0.5 %) eye ointment 2021 022 [id number] [facility]/Pharmacy #[id number], [address] [facility], [place], [address], 09:01:13 Patient TargetsNo targets recorded. Patient Instructions Encounter Date Encounter Id Patient Instructions Last Modified By Organization Details Last Modified Time 02/02/2023 [id number] Based on your ex am and presentation [...] to plan. TRANSFER FORM faxed to hospital [email or web address] Not available 02/02/2023 12:58:25 Reason for Referral None Reported. Results Created Date Observation Date Name Description Value Unit Range Abnormal Flag Note LastModifiedBy Organization Detail LastModifiedTime 02/03/2002/02/2023 urina lysis , dipst ick Unknown Analyte Light Yellow Not Available brittney martinez [address] [place], [address], 02/02/2023 09:16:07 02/03/2002/02/2023 urina lysis , dipst ick Unknown Analyte Clear Not Available _ jazlyn [address] [place], [address], 02/02/2023 09:16:07 02/03/2002/02/2023 urina lysis , dipst ick Unknown Analyte Negati ve Not Available _brittney martinez [address] [place], [address], 02/02/2023 09:16:07 02/03/20 23 02/02/2023 urina lysis , dipst ick Unknown Analyte Negati ve Not Available brittney martinez [address] [place], [address], 02/02/2023 09:16:07 02/03/20 23 02/02/2023 urina lysis , dipst ick Unknown Analyte Negati ve Not Available _brittney martinez [address] [place], [address], 02/02/2023 09:16:07 02/03/20 23 02/02/2023 urina lysis , dipst ick Unknown Analyte 1.010 Not Available _ jazlyn [address] [place], [address], 02/02/2023 09:16:07 02/03/20 23 02/02/2023 urina lysis , dipst ick Unknown Analyte Negati ve Not Available brittney martinez [address] [place], [address], 02/02/2023 09:16:07 02/03/2002/02/2023 urina lysis , dipst ick Unknown Analyte 6.0 Not Available [address]lyn [address], [address], 02/02/2023 09:16:07 02/03/2002/02/2023 urina lysis , dipst ick Unknown Analyte Negati ve Not Available [address]inez [address], [address], 02/02/2023 09:16:07 02/03/2002/02/2023 urina lysis , dipst ick Unknown Analyte 0.2 E.U./d L Not Available brittney martinez [address] [place] [address], 02/02/2023 09:16:07 02/03/2002/02/2023 urina lysis , dipst ick Unknown Analyte Negati ve Not Available brittney martinez [address] [place], [address], 02/02/2023 09:16:07 02/03/2002/02/2023 urina lysis , dipst ick Unknown Analyte Negati ve Not Available brittney martinez [address] [place], [address], 02/02/2023 09:16:07 Result Notes None recorded. Problems Name Problem SNOMED Code Status Onset Date Resolution Date Notes Provider Name and Address Organization Details Recorded Time Anxiety 94476388 Active 023 CANDY Allen - [facility] 02/02/2023 09:01:36 Problem Notes None recorded. Procedures Surgical History Date Name Laterality Status Provider Name and Address Organization Details Recorded Time 12/30/202 2 Blank Template completed CANDY BAL[place] [address] [place], [address], PA - [facility] 05/07/2022 09:55:32 Imaging Results None recorded. Procedure Notes None recorded. Medical Equipment None Reported. Allergies Allergen ID Allergen Name Allergen Category Reaction Reaction Severity Criticality Documentation Date Start Date Code Code System Note Provider Name and Address Organization Details Recorded Time 96812 Product containin g penicilli n (product) medicatio n rash Not available Not available 05/07/2022 78370 8001 SNOMED Marisa subramanian [facility] - [facility] [...] Updated DateTime 3 175.26 cm 24.4 kg/m2 83113.7 4 g 18 /min 97.1 [degF] 97 % 97 % 83 /min 133 mm[Hg] 88 mm[Hg] ES BONILLA PA - [facility] 3 09:04:33 Date Recorded Body height Body mass index (BMI) Body weight Oxygen saturation Oxygen saturation in Arterial blood by Pulse oximetry Heart rate Respiratory rate Body temperature Systolic blood pressure Diastolic blood pressure Provider Name and Address Organization Details Last Updated DateTime 2 175.26 cm 23.6 kg/m2 48674.7 8 g 100 % 100 % 68 /min 18 /min 97.7 [degF] 111 mm[Hg] 81 mm[Hg] Marisa Branham PA - [facility] 2 09:13:35 Social History Question Answer Notes LastModified by Organizat ion Details LastModified Time Tobacco Smoking Status Current Every Day Smoker Marisa subramanian PA - [facility] 05/07/2022 09:12:11 Have You Had Direct Contact, Or Contact During Intimacy, With Monkeypox Rash, Scabs, Or Body Fluids From A Person With Monkeypox? No Information not available 05/07/2022 What Is Your Current Pack Years? 30ormorepacky ears Information not available 05/07/2022 How Much Tobacco Do You Smoke? 1 PPD Information not available 05/07/2022 Have You Recently Traveled Abroad? No Information not available 05/07/2022 Sex: Unknown Functional Status Question Answer Note LastModified by Organizat ion Details LastModified Time Do you use any illicit or recreational drugs? No Information not available 05/07/2022 Do you or have you ever used any other forms of tobacco or nicotine? No Information not available 05/07/2022 What is your level of alcohol consumption? None Information not available 05/07/2022 Mental Status None recorded. Family History Relationship [...] SNOMED-CT Code Diagnosis ICD10 Code Diagnosis Note [id number] [facility] R[facility] [address] [facility] [address] [place] [address] 05/07/2022 08:57:59 05/07/2022 10:00:23 Abrasion of left cornea 8449810177 0538330 S05.02XA Your exam today is consistent with [...] vision, bleeding from eye or with concerns. [id number] CANDY MELLO [address] [place] [address] 02/02/2023 08:32:10 02/02/2023 09:34:46 Stomach cramps 67769063 R10.9 Abdominal pain 46201510 R10.9 Anxiety 69165794 F41.9 Health Concerns Section Related Observation LastModified by Organization Detai ls LastModified Time None Recorded Concern Status LastModified by Organization Details LastModified Time None Recorded Advance Directives Directive None Recorded Payers Insurance Date Sequence Insurance Name Policy Number Policy Gonzales Covered Member ID Gonzales Member ID Guarantor Name 02/02/2023 1 [employer] [place] Srini Lasway [id number] Srini Lasway 02/02/2023 1 MEDIC[place] B-[place]: [facility] [employer] Srini Middletonway [id number] Srini Lasway 02/02/2023 1 [employer] (MEDICARE REPLACEMENT/ ADVANTAGE - PPO) Ariel Lashway [id number] Srini Lasway 02/02/2023 2 [place]: [facility] Srini Liriano Lasway [id number] Srini Lasway Notes Date Note Type Note Provider Name [...] morning. Denies contact lens use. CANDY LONG [facility], [address], PA - [facility] 05/07/2022 09:57:53 3 [...] SX'S, CHEST PAIN, SOB, Palpitations CANDY MELLO [facility] [place], [address], PA - [facility] 02/02/2023 12:58:38
== END 2024-10-12 10:57 | disposition home or self-care (01) ==
LOC: HO.HMCC 10:10
PROVIDERS: PCP Internal Medicine; Visit Provider Internal Medicine
DX: R05.9 Cough, unspecified (principal)

== ENCOUNTER 2024-10-12 10:09 | Outpatient (REF) | payer MEDICARE, SELFPAY ==
--- NOTE | ~2024-10-12 | XR_ITS ---
EXAMINATION: XR CHEST CLINICAL INFORMATION: R05.9 - Cough, unspecified COMPARISON: CT January 06, 2024 TECHNIQUE: 2 views of the chest were obtained. FINDINGS: There is a new dense airspace opacity in the posterior left upper lobe demonstrates a flat superior margin raising question of an air-fluid level. Patchy reticular and airspace opacities are seen in the left lower lobe. There is blunting of the left costophrenic angle. Heart size and mediastinal contours are within normal limits. There is elevation of the left humeral head. Mild multilevel disc space narrowing is present along with anterior osteophytes. XR/XR chest 2V IMPRESSION: Multilobar left lung pneumonia with dense consolidation in the left upper lobe. Density in the posterior lower portion of left upper lobe has a flat superior margin, an air-fluid level is not ruled out, pulmonary abscess is not ruled out. There is also small pleural effusion. Electronically signed by: Gerber Hernández MD 10/12/2024 11:45 AM EDT
== END 2024-10-12 10:10 | disposition home or self-care (01) ==
LOC: HO.HMGCX 10:09
PROVIDERS: PCP Internal Medicine; Visit Provider Internal Medicine
DX: R05.9 Cough, unspecified (principal); J44.9 Chronic obstructive pulmonary disease, unspecified; F17.210 Nicotine dependence, cigarettes, uncomplicated
CPT/HCPCS: 71046; 99212

== ENCOUNTER → 2024-10-12 11:07 | Outpatient (BNV) | payer MEDICARE, SELFPAY | PROVIDERS: PCP Internal Medicine; Visit Provider Radiology Diagnostic Radiology | DX: R91.8 Other nonspecific abnormal finding of lung field (principal) | CPT/HCPCS: 71046 ==

== ENCOUNTER 2024-10-24 11:04 | Outpatient (AMB) | payer MEDICARE, SELFPAY ==
--- NOTE | 2024-10-24 11:07 | MHC.PC.OV ---
Vital Signs 10/24/24 11:08 Height 5 ft 8 in Weight 125 lb BMI 19.0 BP 104/64 Blood Pressure Location Lt brachial Position Sitting Respiration 18 Pulse 94 Pulse Source Pulse Oximeter Temp 97.8 F Temp Source Oral Pulse Oximetry (%) 93 Oxygen Delivery Method Room Air Intake Visit Reasons: 1.5wk follow up Allergies Penicillins Allergy (Verified 10/24/24 11:13) Rash Medication List - Last Reconciled 10/24/24 by Pauline Dc MD albuterol sulfate 90 mcg/actuation 2 puffs inhalation Q6H PRN benzonatate 100 mg PO TID [methadone PO] omeprazole 20 mg PO DAILY polyethylene glycol 3350 (Miralax) 17 grams PO BID Trelegy Ellipta 100-62.5-25 mcg (oiebaushgmw-rvzlyzrch-sdrsaqbh) 1 inh inhalation DAILY NS Tobacco use date assessed: 10/12/24 Dental Screening Dental Screen Date: 07/12/24 HPI 1.5wk follow up HPI Details Patient presents for the follow-up. he completed a course of doxycycline and prednisone and had decided not to go to the hospital to evaluate for a lung abscess. He reports significantly improved cough by still reports pleurisy with deep inspiration of the left lower chest. Patient denies fever chills but reports occasionally night sweats. He reports good appetite has been eating 3 meals a day. Patient has been using Trelegy regularly [facility] Medical History Lumbar disc disease History of basal cell carcinoma (BCC) GERD (gastroesophageal reflux disease) Anxiety and depression Nicotine dependence, cigarettes, uncomplicated Hx of fracture of leg Surgical History History of colonoscopy History of basal cell carcinoma (BCC) excision History of back surgery Family History Father No problems noted. Mother Heart attack Brother Throat cancer Brother Substance use disorder Social History Household Members Other:: lives with brother,disability for lumbar DJD, , 2 adult daughters Housing: House Alcohol intake: former Year quit: 2008 Patient Tobacco Use Status: Current everyday Tobacco user Tobacco use type: Cigarette Cigarette Packs Per Day: 1 Cigarettes Per Day: 10 Years Smoked: onset 15yo, 1ppd x 48yrs, 45pyh e-Cigarette/Vaping Use: Never Used service: No Current occupational status: unemployed Cognitive needs: No Hearing needs: No Vision needs: Yes Questionnaire Thrive Questionnaire Date Thrive assessed: 07/12/24 I am a: Patient What is your living situation today?: I have a steady place to live THRIVE Score: 0 NATIVIDAD-7 AMB Questionnaire NATIVIDAD-7 Date NATIVIDAD - 7 assessed: 06/21/23 Source: Developed by Drs. Shen Ware, Jonna Guevara, Mac Dial and colleagues, with an educational marito from [employer]. Review of Systems Const All systems reviewed & are unremarkable except as noted in HPI and below Eyes Reports no additional complaints ENT Reports no additional complaints Card Reports no additional complaints Resp Reports no additional complaints GI Reports no additional complaints Physical exam (Primary Care) Vital Signs: Last Vital Signs Temp 97.8 F 10/24/24 11:08 Pulse 94 10/24/24 11:08 Resp 18 10/24/24 11:08 BP 104/64 10/24/24 11:08 Pulse Ox 93 10/24/24 11:08 Oxygen Delivery Method Room Air 10/24/24 11:08 BMI result Body Mass Index 19.0 Tobacco/Smoking Status: Tobacco use Status Tobacco use date assessed 10/12/24 10/24/24 11:10 Patient Tobacco Use Status Current everyday Tobacco 10/24/24 11:10 Tobacco use type Cigarette 10/24/24 11:10 e-Cigarette/Vaping Use Never Used 10/24/24 11:10 Thrive Assessment: Date of Thrive Assessment Date Thrive assessed 07/12/24 10/24/24 11:10 Const General: no acute distress HENMT Head: Yes normal to inspection Neck Neck: Yes supple Resp Effort & Inspection: normal respiratory effort Auscultation: diminished lung sounds on the left Cardio Rhythm: regular rhythm Heart sounds: S1 normal heart sound present and S2 normal heart sound present Coding Level of Care Code Est Pt Level 3 (10211) Diagnoses Lung abscess J85.2 COPD (chronic obstructive pulmonary disease) J44.9 Assessment & Plan Assessment & Plan (1) Lung abscess: Comment: chest x-ray 10/12/2024, left side multilobular pneumonia, left upper lobe dense consolidation with air-fluid level question of lung abscess, small pleural effusion, Doxycycline and prednisone prescribed, patient declined hospitalization Code(s): J85.2 - Abscess of lung without pneumonia Category: Medical Plan: Repeat chest x-ray today. If abscess and pneumonia still present, patient was advised to go to the ER [facility] (2) COPD (chronic obstructive pulmonary disease): Code(s): J44.9 - Chronic obstructive pulmonary disease, unspecified Category: Medical Plan: Continue Trelegy
[2024-10-24 11:08] VITALS: BP 104/64; PULSE 94; RESP 18; TEMP 36.6; O2SAT 93; BMI 19.0
--- OUTSIDE RECORDS SUMMARY | 2024-10-24 12:48 | XMS_ITS | Data Portability ---
Author Organization [facility], [address] Address [address] [place] [address] Assessment No assessment recorded. Plan of Treatment Reminders Order Date Submit Date Provider Last Modified By Organization Details Last Modified Time Details Appointments None recorded. Lab urinalysis, dipstick 2022 023 JODIE 20999[facility], [address] [place] [address], [phone], 09:33:25 Referral None recorded. Procedures None recorded. Surgeries None recorded. Imaging None recorded. Medication Orders erythromyci n 5 mg/gram (0.5 %) eye ointment 2021 022 [email or web address] [facility] #[id number], [address] [facility], [place], [address], 09:01:13 Patient TargetsNo targets recorded. Patient Instructions Encounter Date Encounter Id Patient Instructions Last Modified By Organization Details Last Modified Time 02/02/2023 [id number] Based on your ex am and presentation [...] why my recommendation is the Emergency Room. [email or web address] Not available 02/02/2023 09:30:01 A/P: Anxiety wit h abdominal pain is a stable patient. Advised going to ER today for in person evaluation. Patient understood and agreed to plan. TRANSFER FORM faxed to hospital [email or web address] Not available 02/02/2023 12:58:25 Reason for Referral None Reported. Results Created Date Observation Date Name Description Value Unit Range Abnormal Flag Note LastModifiedBy Organization Detail LastModifiedTime 02/03/2002/02/2023 urina lysis , dipst ick Unknown Analyte Light Yellow Not Available brittney martinez [address] [place], [address], 02/02/2023 09:16:07 02/03/2002/02/2023 urina lysis , dipst ick Unknown Analyte Clear Not Available _ jazlyn [address] [place], [address], 02/02/2023 09:16:07 02/03/2002/02/2023 urina lysis , dipst ick Unknown Analyte Negati ve Not Available _brittney martinez [address] [place], [address], 02/02/2023 09:16:07 02/03/20 23 02/02/2023 urina lysis , dipst ick Unknown Analyte Negati ve Not Available brittney martinez [address] [place], [address], 02/02/2023 09:16:07 02/03/20 23 02/02/2023 urina lysis , dipst ick Unknown Analyte Negati ve Not Available _brittney martinez [address] [place], [address], 02/02/2023 09:16:07 02/03/20 23 02/02/2023 urina lysis , dipst ick Unknown Analyte 1.010 Not Available _ jazlyn [address] [place], [address], 02/02/2023 09:16:07 02/03/20 23 02/02/2023 urina lysis , dipst ick Unknown Analyte Negati ve Not Available brittney martinez [address] [place], [address], 02/02/2023 09:16:07 02/03/2002/02/2023 urina lysis , dipst ick Unknown Analyte 6.0 Not Available [address]azlyn [address], [address], 02/02/2023 09:16:07 02/03/2002/02/2023 urina lysis , dipst ick Unknown Analyte Negati ve Not Available [address]ney [address]inez [address], [address], 02/02/2023 09:16:07 02/03/2002/02/2023 urina lysis , dipst ick Unknown Analyte 0.2 E.U./d L Not Available brittney martinez [address] [place] [address], 02/02/2023 09:16:07 02/03/2002/02/2023 urina lysis , dipst ick Unknown Analyte Negati ve Not Available brittney martinez [address] [place], [address], 02/02/2023 09:16:07 02/03/2002/02/2023 urina lysis , dipst ick Unknown Analyte Negati ve Not Available brittney martinez [address] [place], [address], 02/02/2023 09:16:07 Result Notes None recorded. Problems Name Problem SNOMED Code Status Onset Date Resolution Date Notes Provider Name and Address Organization Details Recorded Time Anxiety 66264631 Active 023 CANDY Allen - [facility] 02/02/2023 09:01:36 Problem Notes None recorded. Procedures Surgical History Date Name Laterality Status Provider Name and Address Organization Details Recorded Time 12/30/202 2 Blank Template completed CANDY [place], [address], [place] - [facility] 05/07/2022 09:55:32 Imaging Results None recorded. Procedure Notes None recorded. Medical Equipment None Reported. Allergies Allergen ID Allergen Name Allergen Category Reaction Reaction Severity Criticality Documentation Date Start Date Code Code System Note Provider Name and Address Organization Details Recorded Time 04424 Product containin g penicilli n (product) medicatio n rash Not available Not available 05/07/2022 28725 8001 SNOMED Marisa subramanian [facility] - [facility] [...] Updated DateTime 3 175.26 cm 24.4 kg/m2 34108.7 4 g 18 /min 97.1 [degF] 97 [...] Updated DateTime 2 175.26 cm 23.6 kg/m2 50488.7 8 g 100 % 100 % 68 [...] SNOMED-CT Code Diagnosis ICD10 Code Diagnosis Note [id number] [facility] [address] [address] [place] [address] 05/07/2022 08:57:59 05/07/2022 10:00:23 Abrasion of left cornea [id number] 6187127 S05.02XA Your exam today is consistent with [...] vision, bleeding from eye or with concerns. [id number] CANDY MELLO [address] [place] [address] 02/02/2023 08:32:10 02/02/2023 09:34:46 Stomach cramps 60622462 R10.9 Abdominal pain 79887618 R10.9 Anxiety 90334608 F41.9 Health Concerns Section Related Observation LastModified by Organization Detai ls LastModified Time None Recorded Concern Status LastModified by Organization Details LastModified Time None Recorded Advance Directives Directive None Recorded Payers Insurance Date Sequence Insurance Name Policy Number Policy Gonzales Covered Member ID Gonzales Member ID Guarantor Name 02/02/2023 1 [employer] [place] Srini Lasway [id number] Srini Lasway 02/02/2023 1 [place]: [facility] [facility] Srini Midd[place]way [id number] Srini Lasway 02/02/2023 1 [employer] (MEDICARE REPLACEMENT/ ADVANTAGE - PPO) Ariel Lashway [id number] Srini Lasway 02/02/2023 2 [place] [facility] Srini Liriano Lasway [id number] Srini Lasway Notes Date Note Type Note [...] morning. Denies contact lens use. CANDY LONG [facility] [place], [address], [place] - [facility] 05/07/2022 09:57:53 3 [...] SX'S, CHEST PAIN, SOB, Palpitations CANDY MELLO [facility] [place], [address], [place] - [facility] 02/02/2023 12:58:38
== END 2024-10-24 12:03 | disposition home or self-care (01) ==
LOC: HO.HMCC 11:04
PROVIDERS: PCP Internal Medicine; Visit Provider Internal Medicine
DX: J85.2 Abscess of lung without pneumonia (principal); J44.9 Chronic obstructive pulmonary disease, unspecified

== ENCOUNTER 2024-10-24 11:18 | Outpatient (REF) | payer MEDICARE, SELFPAY ==
--- NOTE | ~2024-10-24 | XR_ITS ---
EXAMINATION: XR CHEST CLINICAL INFORMATION: J85.2 - Abscess of lung without pneumonia COMPARISON: October 12, 2024. Correlated to CT chest lung screening dated January 06, 2024.. TECHNIQUE: 2 views of the chest were obtained. FINDINGS: Irregular marginated bandlike shaped opacity in the mid left hemithorax. Low lung volume left hemithorax. There is a meniscal shaped opacity left lower thorax. There is a pulmonary reticular pattern involving mostly the left lung. There is a cardiomediastinal silhouette slightly to the left hemithorax. Right lung is aerated without focal opacities. No gross pneumothorax. Multilevel thoracic and upper lumbar spondylosis. S-shaped curvature of the thoracic spine. XR/XR chest 2V IMPRESSION: Concerning neoplasm, left hemithorax with a small to moderate volume left-sided pleural effusion. Electronically signed by: Nguyễn Araiza MD 10/24/2024 12:15 PM EDT
== END 2024-10-24 11:19 | disposition home or self-care (01) ==
LOC: HO.HMGCX 11:18
PROVIDERS: PCP Internal Medicine; Visit Provider Internal Medicine
DX: J85.2 Abscess of lung without pneumonia (principal); J44.9 Chronic obstructive pulmonary disease, unspecified; R05.9 Cough, unspecified
CPT/HCPCS: 71046; 87070; 87077; 87116; 87186; 87205; 87206; 99212

== ENCOUNTER → 2024-10-24 11:57 | Outpatient (BNV) | payer MEDICARE, SELFPAY | PROVIDERS: PCP Internal Medicine; Visit Provider Radiology Diagnostic Radiology | DX: J98.11 Atelectasis (principal) | CPT/HCPCS: 71046 ==

== ENCOUNTER 2024-11-01 15:21 | Outpatient (AMB) | payer MEDICARE, SELFPAY ==
[2024-11-01 15:23] VITALS: BP 110/62; PULSE 99; O2SAT 97; BMI 20.3
--- NOTE | 2024-11-01 15:23 | A.OFFVIS_ITS ---
Vital Signs 11/01/24 15:23 Height 5 ft 8 in Weight 133 lb 6.075 oz BMI 20.3 BP 110/62 Blood Pressure Location Lt brachial Position Sitting Pulse 99 Pulse Source Pulse Oximeter Pulse Oximetry (%) 97 Oxygen Delivery Method Room Air Intake Visit Reasons: Abnormal Chest Xray Intake Note: pt is here as a new patient for abnormal chest xray and states he he does get winded with stairs, walking fast, productive cough yellow/green, some wheeze Smash Hand Required: No Allergies Penicillins Allergy (Verified 11/01/24 15:55) Rash Medication List - Last Reconciled 11/01/24 by Henry Goddard MD albuterol sulfate 90 mcg/actuation 2 puffs inhalation Q6H PRN benzonatate 100 mg PO TID levofloxacin 750 mg PO DAILY 10 days [methadone PO] omeprazole 20 mg PO DAILY polyethylene glycol 3350 (Miralax) 17 grams PO BID PRN Trelegy Ellipta 100-62.5-25 mcg (aowcouokgfq-aizwwdvac-wjhwsfsj) 1 inh inhalation DAILY NS Do you need a note to return to daycare/school/sports/work: No HPI HPI Abnormal Chest Xray: Details: This 63 years old gentleman is here for the 1st time for pulmonary evaluation. Has history of smoking 2 packs a day for almost 40 years, and now recently has cut it down to 1 pack a day. 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 He did have low-dose CT scan of the chest in December 2023, which was basically negative. And recommendation was for him to have annual lung screening. He has clinical diagnosis of COPD and has been treated with Trelegy Ellipta 1 inhalation daily as well as albuterol 2 puffs Q 6 hours p.r.n.. More recently he had increased cough, chest [facility] at [facility] shows that he has a bandlike density in the left mid lung along with some pleural thickening and small pleural effusion at the base. He denies having any fever or chills. Empirically treated with Levaquin 750 mg once a day for 10 days and he still has take it for a few more days. He denies any chest pain , shortness of breath is not any worse than before. As noted above he still smokes about 1 pack a day and does have smoking-related cough, mostly nonproductive. [facility] Medical History Lumbar disc disease History of basal cell carcinoma (BCC) GERD (gastroesophageal reflux disease) Anxiety and depression Nicotine dependence, cigarettes, uncomplicated Hx of fracture of leg Surgical History History of colonoscopy History of basal cell carcinoma (BCC) excision History of back surgery Family History Father No problems noted. Mother Heart attack Brother Throat cancer Brother Substance use disorder Social History Household Members Other:: lives with brother,disability for lumbar DJD, , 2 adult daughters Housing: House Alcohol intake: former Year quit: 2008 Patient Tobacco Use Status: Current everyday Tobacco user Tobacco use type: Cigarette Cigarette Packs Per Day: 1 Cigarettes Per Day: 20 Years Smoked: onset 15yo, 1ppd x 48yrs, 45pyh e-Cigarette/Vaping Use: Never Used service: No Current occupational status: unemployed Cognitive needs: No Hearing needs: No Vision needs: Yes Review of Systems Const All systems reviewed & are unremarkable except as noted in HPI and below Eyes Reports no additional complaints ENT Reports no additional complaints Card Denies chest pain, Denies syncope, Denies irregular heart rhythm and Denies leg edema Resp Reports as per HPI GI Reports heartburn (GERD symptoms being treated) Reports no additional complaints Musc Reports no additional complaints Skin/Breast Reports system reviewed and no additional complaints, except as documented Neuro Reports no additional complaints and Denies syncope Psych Reports no additional complaints Endo Reports no additional complaints Phi/Lymph Reports no additional complaints Aller/Immun Reports no additional complaints Physical Exam Vital Signs: Last Vital Signs Pulse 99 11/01/24 15:23 BP 110/62 11/01/24 15:23 Pulse Ox 97 11/01/24 15:23 Oxygen Delivery Method Room Air 11/01/24 15:23 BMI result Body Mass Index 20.3 Patient is of a thin build , in no distress Const General: healthy appearing (Slightly underweight), comfortable, no acute distress, alert and awake Orientation/consciousness: patient oriented x3 HEENT Head: Yes normal to inspection General nose exam: No nasal polyps present and No nasal discharge present Face and sinus: Yes sinuses nontender Mouth: oropharynx normal Throat: Yes posterior oropharynx normal Eyes General: appearance normal, both eyes and all related structures Neck Neck: Yes normal visual inspection, Yes no lymphadenopathy, Yes trachea midline and Yes no JVD Thyroid: Thyroid normal Chest Chest palpation & inspection: normal inspection of the chest, normal palpation of entire chest wall and no tenderness Resp Other: Chest is symmetrical Percussion note resonant. Breath sounds are distant on both sides, with a few expiratory wheezes There are no localized crepitations . Cardio Palpation: normal PMI Rate: regular rate Rhythm: regular rhythm Heart sounds: no gallops and no murmurs GI Palpation (GI): Soft to palpation, nontender, No hepatosplenomegaly present and no masses Auscultation: normal bowel sounds Back/Spine/Pelvis Thoracic/Lumbar Spine: thoracic and lumbar spine normal to inspection Skin General skin exam: no rashes or lesions noted Neuro General: patient oriented x3 and no focal motor deficits Cranial nerves: Yes CN's II-XII intact bilaterally Extrem General: Yes normal to inspection, Yes no clubbing, cyanosis or edema and Yes no calf tenderness Psych Appearance: grossly normal and well kempt Speech and movement: Normal speech and movement present Results Reviewed Results Reviewed: 01/06/24 LDCT ASSESSMENT: 1. Lung-RADS Category 2: Benign appearance or behavior of nodules. N/A 2. Lung-RADS Category S: Negative. There are no clinically significant or potentially clinically significant findings not related to the lungs requiring urgent additional evaluation. CHEST XRAY 10/24/2024 Irregular marginated bandlike shaped opacity in the mid left hemithorax. Low lung volume left hemithorax. There is a meniscal shaped opacity left lower thorax. There is a pulmonary reticular pattern involving mostly the left lung. There is a cardiomediastinal silhouette slightly to the left hemithorax. Right lung is aerated without focal opacities. No gross pneumothorax. Multilevel thoracic and upper lumbar spondylosis. S-shaped curvature of the thoracic spine. Assessment & Plan Assessment & Plan (1) COPD (chronic obstructive pulmonary disease): Comment: THIS GENTLEMAN HAS HISTORY OF SMOKING FOR MORE THAN 40 YEARS. INITIALLY 2 PACKS A DAY AND NOW HAS CUT DOWN TO 1 PACK A DAY. HE HAS CLINICAL FEATURES OF CHRONIC OBSTRUCTIVE PULMONARY DISEASE. THOUGH HE HAS HAD NO PULMONARY FUNCTION TEST. HE IS BEING TREATED WITH TRELEGY ELLIPTA 1 INHALATION DAILY AND PROAIR 2 PUFFS Q 6 HOURS P.R.N. Code(s): J44.9 - Chronic obstructive pulmonary disease, unspecified Category: Medical Plan: IT IS OKAY TO CONTINUE THESE ABOVE INHALERS . HE WOULD NEED TO HAVE COMPLETE PULMONARY FUNCTION TEST AT SOME POINT (2) Nicotine dependence, cigarettes, uncomplicated: Comment: (current smoker - onset 15yo, 1ppd x 48yrs, 45pyh) PATIENT HAS [place] HISTORY OF HEAVY SMOKING. HE TOLD ME THAT HE HAS CUT CUT IT WEIGHT DOWN, BUT STILL SMOKING ABOUT 1 PACK A DAY. HAD LDCT OF THE LUNG IN DECEMBER 2023, WHICH DID NOT SHOW ANY DENSITY OR NODULE OF CONCERN. Code(s): F17.210 - Nicotine dependence, cigarettes, uncomplicated Category: Medical Plan: HAD A GOOD DISCUSSION WITH HIM WELL HIS YOUNG DAUGHTER WHO CAME WITH. HE NEEDS TO QUIT SMOKING COMPLETELY. HE HAS TOLD ME THAT HE WILL TRY TO CUT DOWN THE NUMBER OF CIGARETTES GRADUALLY. (3) Lung abscess: Comment: chest x-ray 10/12/2024, left side multilobular pneumonia, left upper lobe dense consolidation with air-fluid level question of lung abscess, small pleural effusion, Doxycycline and prednisone prescribed, patient declined hospitalization 10/15/ Code(s): J85.2 - Abscess of lung without pneumonia Category: Medical Plan: CT scan of the lung is ordered to check for loculated fluid worse is unresolved pneumonia versus neoplasm Orders: Orders CT chest wo IV con Today Henry Goddard MD F17.210 - Nicotine dependence, cigarettes, uncomplicated, J44.9 - Chronic obstructive pulmonary disease, unspecified, R91.8 - Other nonspecific abnormal finding of lung field Medications: Changed From polyethylene glycol 3350 (Miralax) 17 grams PO BID 476 grams 0RF To polyethylene glycol 3350 (Miralax) 17 grams PO BID PRN Pauline Dc MD Coding Level of Care Code New Pt Level 4 (35342) Diagnoses COPD (chronic obstructive pulmonary disease) J44.9 Nicotine dependence, cigarettes, uncomplicated F17.210 Lung abscess J85.2
== END 2024-11-01 15:55 | disposition home or self-care (01) ==
LOC: HO.HPS 15:22
PROVIDERS: PCP Internal Medicine; Referring Provider Internal Medicine; Visit Provider Internal Medicine
DX: J44.9 Chronic obstructive pulmonary disease, unspecified (principal); F17.210 Nicotine dependence, cigarettes, uncomplicated; J85.2 Abscess of lung without pneumonia
CPT/HCPCS: 99204

== ENCOUNTER → 2024-11-01 15:21 | Outpatient (BNVA) | payer MEDICARE, SELFPAY | PROVIDERS: PCP Internal Medicine; Referring Provider Internal Medicine; Visit Provider Internal Medicine | DX: J85.2 Abscess of lung without pneumonia (principal); J44.9 Chronic obstructive pulmonary disease, unspecified; F17.210 Nicotine dependence, cigarettes, uncomplicated | CPT/HCPCS: 99202 ==

== ENCOUNTER 2024-12-13 15:53 | Outpatient (REF) | payer MEDICARE, SELFPAY ==
--- NOTE | ~2024-12-13 | CT_ITS ---
CLINICAL HISTORY: J44.9 - Chronic obstructive pulmonary disease, unspecified --- Additional Notes or Special Instructions: As on resolved bandlike density in the left mid lung. CT chest without contrast Comparison: CT/MS/SR - CT LUNG SCREENING - 01/06/24 10:52 EDT Findings: No mediastinal mass or identified lymphadenopathy; evaluation of lymphadenopathy is limited without contrast. No cardiomegaly. Moderate calcified coronary artery disease. Upper limit of normal size ascending and descending thoracic aorta. Mild to moderate calcified atherosclerotic disease. There is consolidation in the left lung involving both the upper and lower lobes most prominent within the superior segment of the left lower lobe, lingula and left lung base with volume loss, architectural distortion, bronchiectasis and cavitation, new. New scarring with mild architectural distortion and bronchiectasis in the right middle lobe. New linear scarring in the right upper lobe. New right pulmonary nodules measuring up to 7 mm. Small left hydropneumothorax, 15%. No right pneumothorax. No pleural effusion. No acute osseous or soft tissue abnormality. No osseous destruction or chest wall abnormality. No acute pathology in the imaged portion of the upper abdomen. Impression: Small left hydropneumothorax. 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 An acute infectious process with cavitation is considered less likely. Follow up is recommended. On follow up attention to new right lung nodules which measure up to 7 mm is also recommended. This document has been electronically signed by: Amelia Haro MD on 12/14/2024 16:02:27
== END 2024-12-13 15:54 | disposition home or self-care (01) ==
LOC: HO.CT 15:53
PROVIDERS: PCP Internal Medicine; Visit Provider Internal Medicine
DX: J44.9 Chronic obstructive pulmonary disease, unspecified (principal); R91.8 Other nonspecific abnormal finding of lung field; F17.210 Nicotine dependence, cigarettes, uncomplicated
CPT/HCPCS: 71250

== ENCOUNTER → 2024-12-13 15:59 | Outpatient (BNV) | payer MEDICARE, SELFPAY | PROVIDERS: PCP Internal Medicine; Visit Provider Radiology Diagnostic Radiology | DX: J44.9 Chronic obstructive pulmonary disease, unspecified (principal) | CPT/HCPCS: 71250 ==

== ENCOUNTER 2024-12-30 18:07 | Emergency (ER) | payer MEDICARE, SELFPAY ==
[2024-12-30] VITALS (9 sets, daily range): BP systolic 143–191; BP diastolic 71–124; PULSE 62–83; RESP 15–20; TEMP 36.6–36.8; O2SAT 95–100; BMI 22.8
--- NOTE | ~2024-12-30 | XR_ITS ---
CLINICAL HISTORY: s p L thoracostomy, 28F 1 view chest x-ray Comparison: CT/REG/SR - CT CHEST WO IV CON - 12/30/24 19:45 EDT CR - XR CHEST 1V - 12/30/24 19:18 EDT Findings: Interval removal of left-sided pigtail catheter with replacement of a larger bore chest tube. Likely now in the pleural space considering resolution of left-sided pneumothorax. Left-sided subcutaneous emphysema. Emphysematous changes in both lungs with persistent opacity overlying the left mid lung. Heart size is normal, no right pleural effusion. Suture anchor in the left humeral head. IMPRESSION: Interval removal of left-sided pigtail catheter with replacement of the larger bore chest tube and resolution of left-sided pneumothorax. This document has been electronically signed by: Shola Worrell MD on 12/30/2024 21:36:25
--- NOTE | ~2024-12-30 | CT_ITS ---
CLINICAL HISTORY: L PTX, prior suspected bronchopleural fistula CT chest without contrast Comparison: CR - XR CHEST 2V - 12/30/24 18:[address]/REG/SR - CT CHEST WO IV CON - 12/13/24 16:03 EDT CR/SR - XR CHEST 2 VIEWS - 10/24/24 12:09 EDT CR/SR - XR CHEST 2 VIEWS - 10/12/24 11:[address]/[place]/SR - CT LUNG SCREENING - 01/06/24 10:52 EDT Findings: No mediastinal mass or identified lymphadenopathy; evaluation of lymphadenopathy is limited without contrast. No rightward shift of the mediastinum or other signs of tension pneumothorax. No cardiomegaly. Moderate calcified coronary artery disease. Upper limit of normal size ascending and descending thoracic aorta. Mild to moderate calcified atherosclerotic disease. There is consolidation in the left lung involving both the upper and lower lobes centered upon the major fissure most prominent within the superior segment of the left lower lobe with architectural distortion, bronchiectasis and cavitation, present on the prior CT, new since 01/06/24. There is increase in left lower lobe atelectasis. Scarring in the right lung is similar to the prior study and new since 01/06/24. Right pulmonary nodules measuring up to 7 mm similar to the prior study and new since 01/06/24. Substantial paraseptal emphysema. Advanced destructive centrilobular emphysema. [id number] left pneumothorax, increased since the prior study, up to 60%. Bronchopleural fistula is questioned (see series 7 images 52-66). Trace left pleural fluid, previously small. No right pneumothorax. No pleural effusion. New nondisplaced fracture of the left posterior 5th rib. No associated osseous lesion. No osseous destruction or chest wall abnormality. No acute pathology in the imaged portion of the upper abdomen. Impression: Interval increase in size of left pneumothorax, currently [id number], up to 60%. No evidence of tension pneumothorax. Consider placement of a chest tube. Consolidation in the left lung with cavitation favored to be secondary to malignancy. Question bronchopleural fistula. Nonemergent workup is recommended if not already performed. New nondisplaced fracture of the left posterior 5th rib. This is unlikely to be the cause of the increase in size of the pneumothorax. This document has been electronically signed by: Amelia Haro MD on 12/30/2024 19:20:19
--- NOTE | ~2024-12-30 | XR_ITS ---
CLINICAL HISTORY: shortness of breath Chest Radiographs, 2 views Comparison: CT/REG/SR - CT CHEST WO IV CON - 12/13/24 16:03 EDT CR/SR - XR CHEST 2 VIEWS - 10/24/24 12:09 EDT CR/SR - XR CHEST 2 VIEWS - 10/12/24 11:18 EDT Findings: No cardiomegaly. Normal mediastinal contours. Moderate-sized left pneumothorax, up to 40%, increased since CT 12/13/24 (previously small). Linear opacity in right middle and upper lobes, likely scarring. Consolidation in the left lung of the junction of upper and lower lobes predominantly within the superior segment of the left lower lobe, unchanged. Left lower lobe opacity, increased, likely secondary to atelectasis. Small left pleural effusion, similar to the prior studies. Normal upper abdomen. No acute fracture. Impression: Moderate-sized left pneumothorax, up to 40%, increased since 12/13/24. Increased left lower lobe atelectasis. Unchanged small left pleural effusion. Unchanged consolidation in the left lung concerning for malignancy with associated scarring. Bronchopleural fistula is suspected. Nonemergent workup is recommended. This document has been electronically signed by: Amelia Haro MD on 12/30/2024 18:56:24
--- NOTE | ~2024-12-30 | XR_ITS ---
CLINICAL HISTORY: chest tube placement 1 view chest x-ray Comparison: CT/REG/SR - CT CHEST WO IV CON - 12/30/24 18:41 EDT CR - XR CHEST 2V - 12/30/24 18:26 EDT Findings: Persistent moderate left basilar loculated pneumothorax with interval placement of the pigtail pleural catheter. Small left apical pneumothorax. Chronic appearing interstitial lung markings in both lungs may represent COPD or chronic interstitial lung disease. Normal size heart. No acute fracture. IMPRESSION: 1. Interval placement of the left chest pigtail pleural catheter with stable appearing moderate left pneumothorax. This document has been electronically signed by: Manuel Richardson MD on 12/30/2024 20:13:14
--- NOTE | ~2024-12-30 | CT_ITS ---
CLINICAL HISTORY: repeat, complex hydroPTX, pigtail placed CT chest without contrast Comparison: CR - XR CHEST 1V - 12/30/24 19:[address]/REG/SR - CT CHEST WO IV CON - 12/30/24 18:41 EDT Findings: The heart is normal size. No pleural effusions. The visualized thyroid and mediastinum are unremarkable. Interval placement of left-sided chest tube with pigtail formed within the left lower lobe parenchyma, and not within the pleural space. All pigtail sideholes are within the parenchyma and none extending into the chest wall. There is a slight decrease in the size of the left pneumothorax and there is no rightward mediastinal shift to suggest a tension pneumothorax. There is left-sided chest wall subcutaneous emphysema. Emphysematous changes in the right lung. Stable ground-glass opacity in the anterior right upper lobe (series 4, image 52). The upper abdomen is unremarkable. Left 5th rib fracture stable from prior exam. IMPRESSION: New left-sided chest tube with pigtail in the left lower lobe parenchyma and not within the pleural space. Associated subcutaneous emphysema. Slight decrease in left pneumothorax without evidence of tension. Advise chest tube replacement. This document has been electronically signed by: Shola Worrell MD on 12/30/2024 20:38:33
--- NOTE | 2024-12-30 18:15 | ED_ITS ---
HPI - General Adult General Chief complaint: Dyspnea Stated complaint: ammonia/ cant breathe Time Seen by Provider: 12/30/24 18:29 History of Present Illness ED Provider: Pawan Yoder MD HPI narrative: 64-year-old male who has a history of COPD in early December was diagnosed with lesion of the left lung small hydropneumothorax. He was scheduled on December 25 here at our facility to get a bronchoscopy by pulmonology however he ate prior to the procedure this had to be canceled per anesthesia notes and the patient's verbal history. Over the past several days he has had worsening shortness of breath and left pleuritic pain. Phlegm increasing. No hemoptysis. No leg swelling no right- sided chest pain or typical anginal or exertional symptoms. Denies fever. Related Data Home Medications ?Medication ?Instructions ?Recorded ?Confirmed methadone PO 10/12/24 11/01/24 polyethylene glycol 3350 17 17 g PO BID PRN 11/01/24 0 11/01/24 gram/dose oral powder (Miralax) Previous Rx's ?Medication ?Instructions ?Recorded omeprazole 20 mg capsule,delayed 20 mg PO DAILY #30 ca ps 07/12/24 release Trelegy Ellipta 100 mcg-62.5 1 inh inhalation DAILY #6 0 ea 10/12/24 mcg-25 mcg powder for inhalation (inhdnekaqws-nbkysmdnk-wxjafuil) benzonatate 100 mg capsule 100 mg PO TID #30 caps 10/31 levofloxacin 750 mg tablet 750 mg PO DAILY 10 days #10 tabs 10/26/24 albuterol sulfate 90 mcg/actuation 2 puff inhalation Q 6H PRN 11/28/24 aerosol inhaler shortness of breath or wheez ing #8.5 grams Allergies Allergy/AdvReac Type Severity Reaction Status Date / Time Penicillins Allergy Rash Verified 12/30/24 18:15 PMFSH Past Medical History Medical History Lumbar disc disease History of basal cell carcinoma (BCC) GERD (gastroesophageal reflux disease) Anxiety and depression Nicotine dependence, cigarettes, uncomplicated Hx of fracture of leg Surgical History History of colonoscopy History of basal cell carcinoma (BCC) excision History of back surgery Family History Family History Father No problems noted. Mother Heart attack Brother Throat cancer Brother Substance use disorder Social History Social History Household Members Other:: lives with brother,disability for lumbar DJD, , 2 adult daughters Housing: House Alcohol intake: former Year quit: 2008 Patient Tobacco Use Status: Current everyday Tobacco user Tobacco use type: Cigarette Cigarette Packs Per Day: 1 Cigarettes Per Day: 20 Years Smoked: onset 15yo, 1ppd x 48yrs, 45pyh Smoked in Last 30 Days: Yes e-Cigarette/Vaping Use: Never Used Use of substances other than those prescribed or required for medical reasons: No Advance Directives: No Advance Directives Information Provided: No Do you have a plan to hurt others: No Plan service: No Current occupational status: unemployed Cognitive needs: No Hearing needs: No Vision needs: Yes Physical Exam ED Exam Exam: EXAM: Gen: Alert, awake, uncomfortable, splinting Head: Atraumatic Eyes: Anicteric, Normal conjunctiva. ENT: Moist mucosa, no pallor. ? Neck: Supple. Skin: ?No observable rash or bruising on exposed or examined skin Respiratory: No distress respiratory rate about 18, splinting on occasion appears uncomfortable Cardiovascular: Regular rate and rhythm. No murmurs or rub. Well perfused periphery, warm extremities. No edema. ? Abdominal: No focal tenderness. Soft, no objective distension. No palpable masses or obvious organomegaly. ?No guarding, no rebound tenderness or other peritoneal findings. : No flank tenderness. Neuro: Alert. Gross movement of all extremities intact. ? Psych: Calm. Cooperative. MSK: No grossly visible deformity. Vital signs: See flowsheet Vital Signs: Vital Signs - 24 hr 12/30/24 18:11 12/30/24 20:32 12/30/24 20:43 Temperature 98.2 F Pulse Rate 69 62 82 Respiratory Rate 20 18 15 Blood Pressure 145/71 H 143/86 H 191/124 H Pulse Oximetry 97 98 95 Oxygen Delivery Method Room Air 12/30/24 20:48 12/30/24 20:58 12/30/24 21:03 Temperature Pulse Rate 83 74 Respiratory Rate 20 16 Blood Pressure 178/114 H 165/98 H 160/99 H Pulse Oximetry 98 100 100 Oxygen Delivery Method 12/30/24 21:08 12/30/24 21:13 Temperature Pulse Rate 72 73 Respiratory Rate 16 18 Blood Pressure 151/94 H 149/92 H Pulse Oximetry 99 99 Oxygen Delivery Method BMI result Body Mass Index 22.8 Course Course Course Narrative: RME, this is a rapid medical exam performed by Roel Carpenter please refer to primary provider for complete H&P- 64-year-old male past medical history significant for COPD, lung mass presents for evaluation of worsening shortness of breath and coughing. He reports he is due for bronchoscopy but has not yet had that procedure performed yet. Vital signs stable in triage. Plan for labs, EKG, chest x-ray and COVID swab Medications Administered Discontinued Medications Generic Name Dose Route Start Last Admin Trade Name Freq PRN Reason Stop Dose Admin Bupivacaine HCl 5 ml 12/30/24 20:38 12/30/24 20:38 Bupivacaine Mpf 0.25 % 10 Ml Vial INFILTRATI 12/30/24 20:39 5 ml ONCE ONE Administration Ketamine HCl 80 mg 12/30/24 20:09 12/30/24 20:32 Ketamine Hcl/Ns 50 Mg/5 Ml Syringe IVPUSH 12/30/24 20:10 80 mg ONCE ONE Administration Lidocaine HCl 15 ml 12/30/24 20:03 12/30/24 20:08 Lidocaine Hcl 1 % 20 Ml Vial INFILTRATI 12/30/24 20:04 15 ml ONCE ONE Administration Midazolam HCl 4 mg 12/30/24 20:09 12/30/24 20:32 Midazolam Hcl 2 Mg/2 Ml Vial IVPUSH 12/30/24 20:10 4 mg ONCE ONE Administration Procedures Procedure Narrative Procedure Narrative: PROCEDURE NOTE Procedure: Procedural Sedation Performed by: Provider Name Indications: [place] Protocol: a time out was performed and the correct patient and site were verified ? ASA class 2 Pre-anesthesia evaluation, including history, exam, and informed consent is documented in the ED note above. ? Monitoring: Continuous monitoring of heart rate, respiratory rate, pulse oximetry and ETCO2. Supplemental oxygen prior to and during procedure via nasal cannula. Resuscitation equipment available at the bedside during sedation. See nursing note for detailed timing. ? The patient received midazolam and ketamine and dosages were recorded. The patient was recovered from the sedation without complication or incident. Patient returned to pre-sedation level of awareness. The monitoring was discontinued at this time. ? Post-anesthesia evaluation: Respiratory function, cardiovascular function, temperature, and mental status did/did not return to pre-anesthetic state. Pain was/was not controlled. The patient did/did not tolerate p.o. _ PROCEDURE NOTE Procedure: Chest tube Placement pigtail Performed by: Pawan Yoder MD Indication: Left pneumothorax [place] Protocol: a time out was performed and the correct patient and site were verified Consent: Verbal obtained/urgent ? The patient was prepped in proper sterile fashion.? Anesthesia was obtained with local infiltration of 10 ml 1% lidocaine. Standard Seldinger technique was used for pigtail catheter in the 4th intercostal space posterior axillary line. Adequate air aspiration in the liquid in the syringe easy advancement of the guidewire. There was perhaps slight resistance after several cm of introduction of the pigtail catheter though there was air air confirmed on syringe withdrawal. ? Post-Procedure Diagnosis: same as indication Complications: none Estimated Blood Loss:? as documented above Specimens Removed: no Prosthetic devices/implants: no Mobility Architect Manager(s): none Post procedural CT showed inappropriate placement with pigtail terminus in the periphery of the lung parenchyma this may has been secondary to local adhesions or complexity of the anatomy due to mass, fistula etcetera. Upon noting this I set up for formal chest tube immediately. __ Chest tube 2. PROCEDURE NOTE Procedure: Chest tube Placement Performed by: Pawan Yoder MD Indication: Chest tube [place] Protocol: a time out was performed and the correct patient and site were verified Consent: Critical Intervention-unable to obtain The patient was prepped in proper sterile fashion. Anesthesia was obtained with local infiltration of 5 ml 0.25% bupivacaine. The skin was incised at the mid axillary line 5th intercostal spaceA curved hemostat was directed superiorly over the rib, entered the pleural space with positive air return and a 28 Fr thoracostomy tube was advanced. The tube was secured with sutures and bandaged. The tube was connected to a Pleurovac to wall suction. Initial blood return minimal. A portable chest x-ray confirms the position of the chest tube. After the chest tube was placed the original pigtail placed 1 interspace above was removed and sutured with 1 simple interrupted 3-0 nylon suture. Post-Procedure Diagnosis: same as indication Complications: none Estimated Blood Loss: as documented above Specimens Removed: no Prosthetic devices/implants: no Mobility Architect Manager(s): none Post procedural x-ray shows adequate decompression of the pneumothorax and the chest tube likely placed in the costophrenic sulcus ? Medical Decision Making Medical Decision Making MDM Narrative: Medical Decision Makin-year-old male with previously identified potential bronchopleural fistula and/or mass was plan for bronchoscopy on December 25 but missed that. Comes in with worsening shortness of breath left-sided pleuritic pain. PTX identified on plain film patient was not distressed CT was ordered. Plan for pigtail catheter placement see procedure note this was unfortunately complicated by inadvertent parenchymal placement there was no complications or bleeding or rapid decompensation from this. The tube was subsequently removed see the subsequent formal thoracostomy tube placement procedure Preliminary Favored Differential Diagnosis: Lung cancer, pneumothorax, hydrothorax among additional considered etiologies Testing Interpreted Independently: ?See below for details Radiology or Lab testing Results Reviewed: ?See below for details Consults: ?See below for details Independent Historians/External Chart Reviews: ?See below for details Social Determinants of Health Impacting MDM/Planning: ?See below for details Differential Diagnosis Differential Diagnoses: The differential diagnosis associated with the presentation includes Preliminary Favored Differential Diagnosis: Lung cancer, pneumothorax, hydrothorax among additional considered etiologies Consult Healthcare Provider Care discussed with [place] thoracic surgeon and transfer center Lab Data 12/30/24 20:07 12/30/24 20:07 Labs: Lab Results 12/30/24 Range/Units 20:07 WBC 10.6 (4.8-10.8) X10*3/uL RBC 4.34 L (4.60-5.80) X10*6/uL Hgb 12.7 L (14.0-18.0) g/dl Hct 37.2 L (42.0-52.0) % MCV 85.7 (80.0-98.0) fL MCH 29.3 (27.0-33.0) pg MCHC 34.1 (31.0-36.0) g/dl RDW 14.9 (11.0-16.0) % Plt Count 287 (160-400) X10*3/uL MPV 8.7 L (9.4-12.4) fL Immature Gran % (Auto) 0.3 (0.0-0.4) % Neut % (Auto) 53.6 (45-73) % Lymph % (Auto) 33.2 (20-40) % Brooke % (Auto) 8.3 (2-11) % Eos % (Auto) 3.9 (0-4) % Baso % (Auto) 0.7 (0-2) % Lymph # (Auto) 3.5 (1.2-4.9) X10*3/uL Brooke # (Auto) 0.9 (0.1-1.2) X10*3/uL Eos # (Auto) 0.4 (0.0-0.4) X10*3/uL Baso # (Auto) 0.1 (0.0-0.2) X10*3/uL Abs Immat Gran (auto) 0.03 (0.00-0.03) X10*3/uL Absolute Neuts (auto) 5.7 (2.0-8.3) x10*3/uL Absolute Nucleated RBC 0.000 (0.0-0.012) X10*3/uL Nucleated RBC % (auto) 0.0 (0.0-0.2) /100WBC Sodium 137 (135-145) mmol/L Potassium 4.4 (3.3-5.1) mmol/L Chloride 102 (96-108) mmol/L Carbon Dioxide 27 (22-29) mmol/L Anion Gap 12 (12-20) BUN 21 H (9-16) mg/dL Creatinine 0.85 (0.5-1.4) mg/dL Estim Creat Clear Calc 79.2 Estimated GFR > 60 Random Glucose 94 (60-115) mg/dL Calcium 9.3 (8.4-10.2) mg/dL Total Bilirubin 0.2 (0.0-1.0) mg/dL AST 25 (5-37) U/L ALT 19 (0-40) U/L Alkaline Phosphatase 125 H (39-117) U/L Total Protein 7.5 (6.5-8.0) g/dL Albumin 4.0 (3.5-5.0) g/dL COVID-19 ([facility]) Negative (Negative) COVID-19 Clin Com See Note Independent Interpretation I performed an independent interpretation of an: Plain X-Ray (Pneumothorax inferiorly predominant) Radiology Impression Discussion of test interpretation with radiology: I have reviewed the radiologist's reading. Radiologist Impression: Pneumothorax seen External Record Review External record reviewed: Inpatient record and Other (Anesthesia records prior CTs) Chronic Conditions Patient?s care impacted by: Other (COPD) Critical Care Time Critical Care Time Critical Care Time: Yes Total Critical Care Time: 70 Attestation: ED Critical Care: Authorized and Performed by: Pawan Yoder MD Total critical care time: Approximately 70 Due to a high probability of clinically significant, life threatening deterioration, the patient required my highest level of preparedness to intervene emergently and I personally spent this critical care time directly and personally managing the patient. This critical care time included obtaining a history; examining the patient; pulse oximetry; ordering and review of studies; arranging urgent treatment with development of a management plan; evaluation of patient's response to treatment; frequent reassessment; and, discussions with other providers. This critical care time was performed to assess and manage the high probability of imminent, life-threatening deterioration that could result in multi-organ failure. It was exclusive of separately billable procedures and treating other patients and teaching time. Discharge Plan Discharge Clinical Impression: Pneumothorax Patient Disposition: [facility] Transfer Details: Patient left the ED calm comfortable no hypoxia or respiratory distress chest tube was placed on water seal Prescriptions: No Action levofloxacin 750 mg tablet 750 mg PO DAILY 10 Days Qty: 10 0RF albuterol sulfate 90 mcg/actuation HFA aerosol inhaler 2 puff inhalation Q6H PRN (Reason: shortness of breath or wheezing) Qty: 8.5 3RF omeprazole 20 mg capsule,delayed release(DR/EC) 20 mg PO DAILY Qty: 30 2RF methadone PO Trelegy Ellipta 100-62.5-25 mcg blister with device 1 inh inhalation DAILY Qty: 60 3RF benzonatate 100 mg capsule 100 mg PO TID Qty: 30 0RF polyethylene glycol 3350 [Miralax] 17 gram/dose powder 17 g PO BID PRN Print Language: Latvian
--- NOTE | 2024-12-30 18:15 | ECG_ITS ---
Test Reason : SOB Blood Pressure : */* mmHG Vent. Rate : 61 BPM Atrial Rate : 61 BPM P-R Int : 178 ms QRS Dur : 98 ms QT Int : 414 ms P-R-T Axes : 69 37 71 degrees QTcB Int : 416 ms Normal sinus rhythm Normal ECG No previous ECGs available Referred By: Johnson Carpenter Electronically Signed By: MAKENNA DE GUZMAN
[2024-12-30] MEDS: Lidocaine HCl 1 % 20 ML VIAL 15 ML INFILTRATI (20:08)
[2024-12-30 20:30] LABS: Hematocrit 37.2 % (42.0-52.0); Hemoglobin 12.7 g/dl (14.0-18.0); Imm Gran Abs Auto 0.03 X10*3/uL (0.00-0.03); Imm Gran Pct Auto 0.3 % (0.0-0.4); Lymphocytes Absolute Auto 3.5 X10*3/uL (1.2-4.9); MANUAL DIFF FLAG NO; Mean Corpuscular HGB Conc 34.1 g/dl (31.0-36.0); Mean Corpuscular Hemoglobin 29.3 pg (27.0-33.0); Mean Corpuscular Volume 85.7 fL (80.0-98.0); NRBC Abs Auto 0.000 X10*3/uL (0.0-0.012); NRBC Pct Auto 0.0 /100WBC (0.0-0.2); Platelet Count 287 X10*3/uL (160-400); Red Blood Count 4.34 X10*6/uL (4.60-5.80); White Blood Count 10.6 X10*3/uL (4.8-10.8)
[2024-12-30] MEDS: Ketamine HCl/NS 50 MG/5 ML SYRINGE 80 MG IVPUSH (20:32)
[2024-12-30] MEDS: BUPivacaine MPF 0.25 % 10 ML VIAL 5 ML INFILTRATI (20:38)
[2024-12-30 20:45] LABS: Alanine Aminotransferase 19 U/L (0-40); Albumin Level 4.0 g/dL (3.5-5.0); Alkaline Phosphatase 125 U/L (39-117); Anion Gap 12 (12-20); Aspartate Amino Transferase 25 U/L (5-37); Blood Urea Nitrogen 21 mg/dL (9-16); Calcium 9.3 mg/dL (8.4-10.2); Carbon Dioxide 27 mmol/L (22-29); Chloride 102 mmol/L (96-108); Creatinine Clr Calc Pharmacy 79.2; Estimated Glomerular Filt Rate > 60; Potassium 4.4 mmol/L (3.3-5.1); Sodium 137 mmol/L (135-145); Total Protein 7.5 g/dL (6.5-8.0)
[2024-12-30 20:48] LABS: COVID-19 Test Negative (Negative); IDNOW Serial# 6674DD1D
--- NOTE | 2024-12-30 21:13 | PC.NURSE ---
ALS arrived now. patient sitting upright in bed alert and oriented on cell phone. remains on 2L NC per MD Cuevas order for transport, previously did not require O2 and not trialled on room air prior to leaving for transport. #20 RAC. d/c aldrette score 9 d/t wearing 2L NC - SpO2 100%. about 50 mL sanguineous output present in tank on light suction. pt expressed mild discomfort on left side, mild palpable subcu emphysema present and stable prior to and following tube insertion - ALS aware. christine to delta, water seal filled, tidaling properly with exhalation. -20 suction. chest tube remains intact and patent upon departure. report called to [place] triage Amalia KELSEY
== END 2024-12-30 21:58 | disposition short-term general hospital (02) ==
PROVIDERS: Physician Assistant; Emergency Provider Emergency Medicine
DX: J93.9 Pneumothorax, unspecified (principal); J44.9 Chronic obstructive pulmonary disease, unspecified; J98.4 Other disorders of lung; R07.81 Pleurodynia; R06.02 Shortness of breath; F17.210 Nicotine dependence, cigarettes, uncomplicated; Z79.899 Other long term (current) drug therapy; Z87.39 Personal history of other diseases of the musculoskeletal system and connective tissue; Z03.818 Encounter for observation for suspected exposure to other biological agents ruled out
CPT/HCPCS: 32556; 36415; 71045; 71046; 71250; 80053; 85025; 87635; 93005; 96374; 96375; 99152; 99285; 99291; J0665; J2003; J2250

== ENCOUNTER → 2024-12-30 18:15 | Outpatient (BNV) | payer MEDICARE, SELFPAY | PROVIDERS: Emergency Provider Emergency Medicine; Visit Provider Internal Medicine | DX: R06.02 Shortness of breath (principal) | CPT/HCPCS: 93010 ==

== ENCOUNTER → 2024-12-30 18:16 | Outpatient (BNV) | payer MEDICARE, SELFPAY | PROVIDERS: Emergency Provider Emergency Medicine; Visit Provider Radiology Diagnostic Radiology | DX: J93.9 Pneumothorax, unspecified (principal); R91.8 Other nonspecific abnormal finding of lung field; S22.32XA Fracture of one rib, left side, initial encounter for closed fracture; J43.9 Emphysema, unspecified; J98.11 Atelectasis; J90 Pleural effusion, not elsewhere classified; Z97.8 Presence of other specified devices | CPT/HCPCS: 71045; 71046; 71250 ==

== ENCOUNTER 2025-01-09 15:34 | Outpatient (AMB) | payer MEDICARE, SELFPAY ==
[2025-01-09 15:39] VITALS: BP 120/68; PULSE 97; O2SAT 97; BMI 22.5
--- NOTE | 2025-01-09 15:39 | MHC.OFFVIS ---
Vital Signs 01/09/25 15:39 Height 5 ft 8 in Weight 147 lb 11.355 oz BMI 22.5 BP 120/68 Blood Pressure Location Lt brachial Position Sitting Pulse 97 Pulse Source Pulse Oximeter Pulse Oximetry (%) 97 Oxygen Delivery Method Room Air Intake Visit Reasons: S/p bronch Intake Note: pt is here for follow [facility] from [facility] for chest tube, he feels good but still gets short of breath with exertion, he is still having some shortess of breath with exertion. 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 Required: No Allergies Penicillins Allergy (Verified 01/09/25 16:52) Rash Medication List - Last Reconciled 01/09/25 by Henry Goddard MD albuterol sulfate 90 mcg/actuation 2 puffs inhalation Q6H PRN [methadone PO] naloxone 4 mg/actuation (Narcan) 1 spray intranasal DIRECTED nicotine (polacrilex) mg mucous membrane Q2H PRN omeprazole 20 mg PO DAILY polyethylene glycol 3350 (Miralax) 17 grams PO BID PRN Trelegy Ellipta 100-62.5-25 mcg (jeyduxfgigi-gvbbilffw-vpdgncnq) 1 inh inhalation DAILY NS Do you need a note to return to daycare/school/sports/work: No HPI HPI S/p bronch: Details: THIS 64 YEARS OLD GENTLEMAN, WAS SUPPOSED TO HAVE BRONCHOSCOPIC EXAMINATION, BUT IT WAS CANCELED HE HAD EATEN BEFORE COMING FOR THE PROCEDURE, HE WAS TO BE RESCHEDULED FOR THIS PROCEDURE. ON 12/30 HE WAS SEEN IN THE EMERGENCY ROOM WITH CHEST DISCOMFORT ON THE LEFT SIDE AND INCREASED SHORTNESS OF BREATH. HE WAS FOUND TO HAVE HYDROPNEUMOTHORAX ON THE LEFT SIDE. INSERTION OF PIGTAIL CATHETER ,WAS TRIED IN THE ER BUT IT RESULTED IN INCREASED PNEUMOTHORAX. HE HAD THORACOSTOMY TUBE PLACED IN, AND WE DID NOT HAVE ANY THORACIC SURGICAL COVERAGE, [facility] 3 [facility]. AFTER THAT THERE BEING NO DRAINAGE , THE TUBE WAS TAKEN OUT AND HE WAS DISCHARGED HOME. HE COMES AFTER, 1 WEEK FOR FOLLOW-UP IN THE OFFICE HE STILL HAS A FEW SUTURES IN THE AT THE TUBE SITE, HE CLAIMS THAT HIS BREATHING IS FAIRLY GOOD EXCEPT INTERMITTENT COUGH AND MILD SHORTNESS OF BREATH ON EXERTION. HE STILL SMOKING BUT CLAIMS THAT HE HAS CUT DOWN TO 10 CIGARETTES A DAY. [facility] Medical History Lumbar disc disease History of basal cell carcinoma (BCC) GERD (gastroesophageal reflux disease) Anxiety and depression Nicotine dependence, cigarettes, uncomplicated Hx of fracture of leg Surgical History History of colonoscopy History of basal cell carcinoma (BCC) excision History of back surgery Family History Father No problems noted. Mother Heart attack Brother Throat cancer Brother Substance use disorder Social History Household Members Other:: lives with brother,disability for lumbar DJD, , 2 adult daughters Housing: House Alcohol intake: former Year quit: 2008 Patient Tobacco Use Status: Current everyday Tobacco user Tobacco use type: Cigarette Cigarette Packs Per Day: 1 Cigarettes Per Day: 20 Years Smoked: onset 15yo, 1ppd x 48yrs, 45pyh e-Cigarette/Vaping Use: Never Used service: No Current occupational status: unemployed Cognitive needs: No Hearing needs: No Vision needs: Yes Review of Systems Const All systems reviewed & are unremarkable except as noted in HPI and below Eyes Reports no additional complaints ENT Reports no additional complaints Card Denies chest pain, Denies syncope, Denies irregular heart rhythm and Denies leg edema Resp Reports as per HPI GI Reports heartburn (GERD symptoms being treated) Reports no additional complaints Musc Reports no additional complaints Skin/Breast Reports system reviewed and no additional complaints, except as documented Neuro Reports no additional complaints and Denies syncope Psych Reports no additional complaints Endo Reports no additional complaints Phi/Lymph Reports no additional complaints Aller/Immun Reports no additional complaints Physical Exam Vital Signs: Last Vital Signs Pulse 97 01/09/25 15:39 BP 120/68 01/09/25 15:39 Pulse Ox 97 01/09/25 15:39 Oxygen Delivery Method Room Air 01/09/25 15:39 BMI result Body Mass Index 22.5 Patient is of a thin build , in no distress Const General: healthy appearing (Slightly underweight), comfortable, no acute distress, alert and awake Orientation/consciousness: patient oriented x3 HEENT Head: Yes normal to inspection General nose exam: No nasal polyps present and No nasal discharge present Face and sinus: Yes sinuses nontender Mouth: oropharynx normal Throat: Yes posterior oropharynx normal Eyes General: appearance normal, both eyes and all related structures Neck Neck: Yes normal visual inspection, Yes no lymphadenopathy, Yes trachea midline and Yes no JVD Thyroid: Thyroid normal Chest Chest palpation & inspection: normal inspection of the chest, normal palpation of entire chest wall and no tenderness Resp Other: Chest is symmetrical Percussion note resonant. Breath sounds are distant on both sides, with a few expiratory wheezes There are no localized crepitations . Cardio Palpation: normal PMI Rate: regular rate Rhythm: regular rhythm Heart sounds: no gallops and no murmurs GI Palpation (GI): Soft to palpation, nontender, No hepatosplenomegaly present and no masses Auscultation: normal bowel sounds Back/Spine/Pelvis Thoracic/Lumbar Spine: thoracic and lumbar spine normal to inspection Skin General skin exam: no rashes or lesions noted Neuro General: patient oriented x3 and no focal motor deficits Cranial nerves: Yes CN's II-XII intact bilaterally Extrem General: Yes normal to inspection, Yes no clubbing, cyanosis or edema and Yes no calf tenderness Psych Appearance: grossly normal and well kempt Speech and movement: Normal speech and movement present Coding
--- NOTE | 2025-01-09 17:00 | MHC.OFFVIS ---
Vital Signs 01/09/25 15:39 Height 5 ft 8 in Weight 147 lb 11.355 oz BMI 22.5 BP 120/68 Blood Pressure Location Lt brachial Position Sitting Pulse 97 Pulse Source Pulse Oximeter Pulse Oximetry (%) 97 Oxygen Delivery Method Room Air Intake Visit Reasons: S/p bronch Allergies Penicillins Allergy (Verified 01/09/25 16:52) Rash Medication List - Last Reconciled 01/09/25 by Henry Goddard MD albuterol sulfate 90 mcg/actuation 2 puffs inhalation Q6H PRN [methadone PO] naloxone 4 mg/actuation (Narcan) 1 spray intranasal DIRECTED nicotine (polacrilex) mg mucous membrane Q2H PRN omeprazole 20 mg PO DAILY polyethylene glycol 3350 (Miralax) 17 grams PO BID PRN Trelegy Ellipta 100-62.5-25 mcg (gsexshunatl-ukwvxdcgo-tkptqkif) 1 inh inhalation DAILY NS PFSH Medical History Lumbar disc disease History of basal cell carcinoma (BCC) GERD (gastroesophageal reflux disease) Anxiety and depression Nicotine dependence, cigarettes, uncomplicated Hx of fracture of leg Surgical History History of colonoscopy History of basal cell carcinoma (BCC) excision History of back surgery Family History Father No problems noted. Mother Heart attack Brother Throat cancer Brother Substance use disorder Social History Household Members Other:: lives with brother,disability for lumbar DJD, , 2 adult daughters Housing: House Alcohol intake: former Year quit: 2008 Patient Tobacco Use Status: Current everyday Tobacco user Tobacco use type: Cigarette Cigarette Packs Per Day: 1 Cigarettes Per Day: 20 Years Smoked: onset 15yo, 1ppd x 48yrs, 45pyh e-Cigarette/Vaping Use: Never Used service: No Current occupational status: unemployed Cognitive needs: No Hearing needs: No Vision needs: Yes Physical Exam Vital Signs: Last Vital Signs Pulse 97 01/09/25 15:39 BP 120/68 01/09/25 15:39 Pulse Ox 97 09/03/25 15:39 Oxygen Delivery Method Room Air 01/09/25 15:39 BMI result Body Mass Index 22.5 Coding
--- NOTE | 2025-01-09 17:03 | MHC.OFFVIS ---
Vital Signs 01/09/25 15:39 Height 5 ft 8 in Weight 147 lb 11.355 oz BMI 22.5 BP 120/68 Blood Pressure Location Lt brachial Position Sitting Pulse 97 Pulse Source Pulse Oximeter Pulse Oximetry (%) 97 Oxygen Delivery Method Room Air Intake Visit Reasons: S/P thoracostomy tube placement Allergies Penicillins Allergy (Verified 01/10/25 08:28) Rash Medication List - Last Reconciled 01/09/25 by Henry Goddard MD albuterol sulfate 90 mcg/actuation 2 puffs inhalation Q6H PRN [methadone PO] naloxone 4 mg/actuation (Narcan) 1 spray intranasal DIRECTED nicotine (polacrilex) mg mucous membrane Q2H PRN omeprazole 20 mg PO DAILY polyethylene glycol 3350 (Miralax) 17 grams PO BID PRN Trelegy Ellipta 100-62.5-25 mcg (tgdzdjymqid-stgljrsdh-resnokbf) 1 inh inhalation DAILY NS Do you need a note to return to daycare/school/sports/work: No HPI HPI Status post thoracostomy tube placement: Details: This 64 years old gentleman is here for FOLLOW UP . Has history of smoking 2 packs a day for almost 40 years, and now recently has cut it down to 1 pack a day. 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 He did have low-dose CT scan of the chest in December 2023, which was basically negative. And recommendation was for him to have annual lung screening. He has clinical diagnosis of COPD and has been treated with Trelegy Ellipta 1 inhalation daily as well as albuterol 2 puffs Q 6 hours p.r.n.. More recently he had increased cough, chest x-ray at [facility] showed a bandlike density in the left mid lung along with some pleural thickening and small pleural effusion at the base. Empirically treated with Levaquin 750 mg once a day for 10 days . He denied any chest pain , shortness of breath and not any worse than before. He had a repeat CT scan of the chest on 12/14 Impression: Small left hydropneumothorax. 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 An acute infectious process with cavitation is considered less likely. Follow up is recommended. On follow up attention to new right lung nodules which measure up to 7 mm is also recommended. Bronchoscopic examination, with bronchial brushings was planned. Patient on the day of procedure had eaten before coming to the hospital so the procedure was postponed. Then he showed up in the emergency room on 12/30 with chest pain and somewhat increased shortness of breath. He was found to have hydropneumothorax on the left side. Placement of i.e. pigtail catheter was attempted which did not drain much fluid. Hence a large bore chest tube was placed right in the emergency room. And placed to suction. Due to lack of thoracic surgery coverage here at our center, patient was transferred to [facility], where he was watch for 3 days and then the chest tube was removed. He was advised to come for follow-up. He comes today for follow-up , denies any chest pain at this time and his shortness of breath is at baseline, has very little cough which is not productive.. Currently still smoking 1 pack of cigarettes a day He is out of his regular med, Trelegy Ellipta and albuterol HFA. [facility] Medical History (Updated 01/10/25 @ 08:49 by Henry Goddard MD) Hydropneumothorax Lumbar disc disease History of basal cell carcinoma (BCC) GERD (gastroesophageal reflux disease) Anxiety and depression Nicotine dependence, cigarettes, uncomplicated Hx of fracture of leg Surgical History History of colonoscopy History of basal cell carcinoma (BCC) excision History of back surgery Family History Father No problems noted. Mother Heart attack Brother Throat cancer Brother Substance use disorder Social History Household Members Other:: lives with brother,disability for lumbar DJD, , 2 adult daughters Housing: House Alcohol intake: former Year quit: 2008 Patient Tobacco Use Status: Current everyday Tobacco user Tobacco use type: Cigarette Cigarette Packs Per Day: 1 Cigarettes Per Day: 20 Years Smoked: onset 15yo, 1ppd x 48yrs, 45pyh e-Cigarette/Vaping Use: Never Used service: No Current occupational status: unemployed Cognitive needs: No Hearing needs: No Vision needs: Yes Review of Systems Const All systems reviewed & are unremarkable except as noted in HPI and below Eyes Reports no additional complaints ENT Reports no additional complaints Card Denies chest pain, Denies syncope, Denies irregular heart rhythm and Denies leg edema Resp Reports as per HPI GI Reports heartburn (GERD symptoms being treated) Reports no additional complaints Musc Reports no additional complaints Skin/Breast Reports system reviewed and no additional complaints, except as documented Neuro Reports no additional complaints and Denies syncope Psych Reports no additional complaints Endo Reports no additional complaints Phi/Lymph Reports no additional complaints Aller/Immun Reports no additional complaints Physical Exam Vital Signs: Last Vital Signs Pulse 97 01/09/25 15:39 BP 120/68 01/09/25 15:39 Pulse Ox 97 01/09/25 15:39 Oxygen Delivery Method Room Air 01/09/25 15:39 BMI result Body Mass Index 22.5 Patient is of a thin build , in no distress Const General: healthy appearing (Slightly underweight), comfortable, no acute distress, alert and awake Orientation/consciousness: patient oriented x3 HEENT Head: Yes normal to inspection General nose exam: No nasal polyps present and No nasal discharge present Face and sinus: Yes sinuses nontender Mouth: oropharynx normal Throat: Yes posterior oropharynx normal Eyes General: appearance normal, both eyes and all related structures Neck Neck: Yes normal visual inspection, Yes no lymphadenopathy, Yes trachea midline and Yes no JVD Thyroid: Thyroid normal Chest Other: He has a few sutures at the chest tube site, with some erythema of the skin but no discharge. Chest palpation & inspection: abnormal inspection of the chest, normal palpation of entire chest wall and no tenderness Resp Other: Chest is symmetrical. Status post thoracostomy left chest, with residual sutured spot Percussion note resonant. Breath sounds are distant on both sides, with a few expiratory wheezes There are no localized crepitations . Cardio Palpation: normal PMI Rate: regular rate Rhythm: regular rhythm Heart sounds: no gallops and no murmurs GI Palpation (GI): Soft to palpation, nontender, No hepatosplenomegaly present and no masses Auscultation: normal bowel sounds Back/Spine/Pelvis Thoracic/Lumbar Spine: thoracic and lumbar spine normal to inspection Skin General skin exam: no rashes or lesions noted Neuro General: patient oriented x3 and no focal motor deficits Cranial nerves: Yes CN's II-XII intact bilaterally Extrem General: Yes normal to inspection, Yes no clubbing, cyanosis or edema and Yes no calf tenderness Psych Appearance: grossly normal and well kempt Speech and movement: Normal speech and movement present Assessment & Plan Assessment & Plan (1) Status post thoracostomy tube placement: Code(s): Z93.8 - Other artificial opening status Plan: HAS BEEN TREATED WITH THORACOSTOMY TO PLACEMENT. DOING FAIRLY WELL. WILL BE MONITORED CLOSELY, AND RECHECKED IN A FEW WEEKS. (2) Nicotine dependence, cigarettes, uncomplicated: Comment: (current smoker - onset 15yo, 1ppd x 48yrs, 45pyh) PATIENT HAS [place] HISTORY OF HEAVY SMOKING. HE TOLD ME THAT HE HAS CUT CUT IT WEIGHT DOWN, BUT STILL SMOKING ABOUT 1 PACK A DAY. HAD LDCT OF THE LUNG IN DECEMBER 2023, DENSITY IN THE LEFT LUNG, WITH RESIDUAL HYDROPNEUMOTHORAX DESCRIBED ABOVE IN THE HISTORY. Code(s): F17.210 - Nicotine dependence, cigarettes, uncomplicated Category: Medical Plan: PATIENT IS POST THORACOSTOMY AND CHEST DRAINAGE, WILL BE FOLLOWED UP CLOSELY . (3) COPD (chronic obstructive pulmonary disease): Comment: THIS GENTLEMAN HAS HISTORY OF SMOKING FOR MORE THAN 40 YEARS. INITIALLY 2 PACKS A DAY AND NOW HAS CUT DOWN TO 1 PACK A DAY. HE HAS CLINICAL FEATURES OF CHRONIC OBSTRUCTIVE PULMONARY DISEASE. THOUGH HE HAS HAD NO PULMONARY FUNCTION TEST. Code(s): J44.9 - Chronic obstructive pulmonary disease, unspecified Category: Medical Plan: CONTINUE TRELEGY ELLIPTA 1 INHALATION DAILY. PRESCRIPTION RENEWED ALBUTEROL HFA 2 PUFFS Q 4-6 HOURS P.R.N. (4) Hydropneumothorax: Comment: POST TREATMENT FOR MULTILOBAR PNEUMONIA ON ON THE LEFT SIDE, WITH UPPER LOBE CONSOLIDATION, PATIENT LEFT WITH RESIDUAL HYDRO PNEUMOTHORAX. RECENTLY TREATED WITH THORACOSTOMY TUBE PLACEMENT, CLINICALLY RESOLVED. Code(s): J94.8 - Other specified pleural conditions Category: Medical Plan: WILL REPEAT A CHEST X-RAY AT A FEW WEEKS INTERVAL. (5) Lung abscess: Comment: chest x-ray 10/12/2024, left side multilobular pneumonia, left upper lobe dense consolidation with air-fluid level question of lung abscess, small pleural effusion, Doxycycline and prednisone prescribed, SUBSEQUENTLY WAS TREATED WITH A COURSE OF LEVAQUIN. DEVELOPED HYDRO PNEUMOTHORAX, NOW HAS BEEN TREATED WITH CHEST TUBE PLACEMENT, AND REPEAT COURSE OF ANTIBIOTICS. Code(s): J85.2 - Abscess of lung without pneumonia Category: Medical Plan: WE ARE TRYING TO GET COMPLETE DETAIL OF THE NOTES FROM [facility]. WILL REPEAT CHEST X-RAY IN A FEW WEEKS. BRONCHOSCOPY PROCEDURE IS STILL PENDING Medications: Changed From Trelegy Ellipta 100-62.5-25 mcg (ezenlgrotja-tifebbqam-sserupmf) 1 inh inhalation DAILY 60 ea 3RF NS To Trelegy Ellipta 100-62.5-25 mcg (cbtvumvixym-llohmigpo-zjtnhayj) 1 inh inhalation DAILY 60 ea 3RF COPD, SEVERE 30 days NS Refilled albuterol sulfate 90 mcg/actuation 2 puffs inhalation Q6H PRN 8.5 grams 3RF shortness of breath or wheezing Coding Level of Care Code Est Pt Level 4 (97919) Diagnoses Status post thoracostomy tube placement Z93.8 Nicotine dependence, cigarettes, uncomplicated F17.210 COPD (chronic obstructive pulmonary disease) J44.9 Hydropneumothorax J94.8 Lung abscess J85.2
--- OUTSIDE RECORDS SUMMARY | 2025-01-09 17:34 | XMS_ITS | Encounter Summary ---
Author Organization [facility] Address [address] [place] [address] Care Team Providers Care Practice Managers Name Role Phone Unknown Primary Care Provider [phone] Encounter Details Date Type Department Care Team ([facility] Contact Info) Description 01/03/2025 Orders Only [facility] Thoracic Surgery [address] [id number], [address] [place] [address] Social History Tobacco Use Types Packs/Day Years Used Date Smoking Tobacco: Every Day Cigarettes Smokeless Tobacco: Never [facility] Utilities Answer Date Recorded In the past 12 months has e electric, gas, oil, or water company threatened to shut off services in your home? No 12/31/2024 AUDIT-C Answer Date Recorded Q1: How often do you have a drink containing alcohol? Never 12/31/2024 Q2: How many drinks containi ng alcohol do you have on a typical day when you are drinking? Patient does not drink Q3: How often do you have si x or more drinks on one occasion? Never 12/31/2024 Overall Financial Resource Strain (CARDIA) Answe r Date Recorded How hard is it for you to pa y for the very basics like food, housing, medical care, and heating? Somewhat hard 12/31/2024 Hunger Vital Sign Answer Date Recorded Within the past 12 months, y ou worried that your food would run out before you got the money to buy more. Never true 01/01/20 Within the past 12 months, t he food you bought just didn't last and you didn't have money to get more. Never true 12/31/2024 PRAPARE - Transportation Answer Date Re corded In the past 12 months, has l ack of transportation kept you from medical appointments or from getting medications? No 12/08 In the past 12 months, has l ack of transportation kept you from meetings, work, or from getting things needed for daily living? No 12/31/2024 Housing Stability Vital Sign Answer Moshe e Recorded In the last 12 months, was t here a time when you were not able to pay the mortgage or rent on time? No 12/31/2024 In the past 12 months, how m any times have you moved where you were living? 0 12/31/2024 At any time in the past 12 m [facility], were you homeless or living in a mcc (including now)? No 12/31/2024 Sex and Gender Information Value Date Recorded Sex Assigned at Male 12/30/2024 11:52 PM EDT Legal Sex Male 7:58 PM EDT Gender Identity Male 12/30/2024 11:52 PM EDT Sexual Orientation Heterosexual (straight) 12/30 11:52 PM EDT documented as of this encounter Plan of Treatment Not on file documented as of this encounter Visit Diagnoses Not on filedocumented in this encounter Care Teams Practice Managers Relationship Specialty Start Date End Date Unknown Unknow Provider Address PCP - General 12/30/24 documented as of this encounter
--- OUTSIDE RECORDS SUMMARY | 2025-01-09 17:34 | XMS_ITS | Encounter Summary ---
Author Organization [facility] Address [address] [place] [id number] Phone Care Team Providers Care Child Adolescent Care Name Role Phone Pauline Dc MD Primary Care Provider [phone] Encounter Details Date Type Department Care Team (Late st Contact Info) Description 02/20/2024 Procedure Pass [facility], Ct Scan - [address] [address] Social History Tobacco Use Types Packs/Day Years Used Date Smoking Tobacco: Every Day Smokeless Tobacco: Never Alcohol Use Standard Drinks/Week Comments No 0 (1 standard drink = 0.6 oz pur e alcohol) Education Answer Date Recorded Are you interested in more education? Not on landry e 09/03/2022 Are you concerned about learning? Not on file 09/03/2022 No 09/03/2022 No 09/03/2022 Digital Access Answer Date Recorded No 10/02/2022 No 10/02/2022 Reliable internet access at home? Not on file 10/02/2022 Device with a working camera? Not on file Intimate Partner Violence Answer Date R ecorded Are you denied basic needs s uch as food, clothing, or medical care? No 02/20/2024 In the past 12 months have y ou been in a relationship with a person who hurts, threatens, or tries to control you? No 02/20/2024 Are you denied basic needs s uch as food, clothing, or medical care? No 02/20/2024 In the past 12 months have y ou been in a relationship with a person who hurts, threatens, or tries to control you? No 02/20/2024 Sex and Gender Information Value Date Recorded Sex Assigned at Male 07/01/2017 10:37 AM EST Legal Sex Male 9:47 PM EDT Gender Identity Male 07/01/2017 10:37 AM EST Sexual Orientation Straight 07/01/2017 10 :37 AM EST documented as of this encounter Functional Status * Calculated C-SSRS Risk Score (Lifetime/Recent) Answer Date of Assessment Author No Risk Indicated 02/20/2024 8:52 AM EDT Temitope Moreland RN * [place] Suicide Severity Rating Scale (Screener/Recent Self-Report) Question Answer Date of Assessment Author 1. Wish to be (Past 1 Month) No 024 8:52 AM JAMET Temitope Moreland RN 2. Non-Specific Active Suici charles Thoughts (Past 1 Month) No 02/20/2024 8:52 AM EDT Temitope Moreland RN 6. Suicidal Behavior (Lifetime) No 8:52 AM EDT Temitope Moreland RN documented as of this encounter Plan of Treatment Not on file documented as of this encounter Visit Diagnoses Not on filedocumented in this encounter Care Teams Child Adolescent Care Relationship Specialty Start Date End Date Pauline Dc MD [address] [facility] [place] [id number] PCP - General Internal Medicine 02/20/24 documented as of this encounter Additional Source Comments The information contained in this document represents components of the legal health record. It is not the complete legal health record.[facility]
--- OUTSIDE RECORDS SUMMARY | 2025-01-09 17:34 | XMS_ITS ---
Author Name [facility] Organization Unknown Results Test Name/Text Value Interpretation Date Range Source WBC num Bld Auto 8.7 Thou/uL 01/02/2025 4 - 11 [facility] RBC Qn Auto 28.4 pg 01/02/2025 27 - [address] PMV Bld Auto 9.0 fL 01/02/2025 7.5 - 12.5 [facility] Hgb Bld-mCnc 12.6 g/dL Below low normal 01/02/2025 13 - 17.7 [facility] Platelet num Bld Auto 255.0 Thou/uL 01/02/2025 150 - 450 [facility] RBC num Bld Auto 4.44 Mil/uL Below low normal 01/02/2025 4.5 - 6.2 [facility] MCV RBC Auto 87.0 fL 01/02/2025 80 - 100 [facility] MCHC RBC Auto-mCnc 32.5 g/dL 01/02/2025 30 - 36 [facility] RDW RBC Auto-Rto 14.6 % Above high normal 01/02/2025 11.5 - 14.5 [facility] Hct VFr Bld Auto 38.8 % Below low normal 01/02/2025 39 - 54 [facility] Albumin/Glob SerPl 1.1 Ratio 12/31/2024 1 - 3 [facility] ALP SerPl-cCnc 123.0 U/L 12/31/2024 45 - 128 [facility] T CO2 SerPl-sCnc 26.0 mmol/L 12/31/2024 22 - 33 [facility] Sodium SerPl-sCnc 137.0 mmol/L 12/31/2024 136 - 14 5 [facility] BUN/Creat SerPl 24.0 Ratio 12/31/2024 10 - 25 [facility] ALT SerPl-cCnc 18.0 U/L 12/31/2024 10 - 55 [facility] T Albumin SerPl-mCnc 3.9 g/dL 12/31/2024 3.4 - 4.8 [facility] Glucose SerPl-mCnc 91.0 mg/dL 12/31/2024 65 - 99 [facility] Anion Gap Bld-sCnc 10.0 12/31/2024 7 - 17 [facility] Potassium SerPl-sCnc 4.4 mmol/L 12/31/2024 3.4 - 5 .3 [facility] Prot SerPl-mCnc 7.4 g/dL 12/31/2024 6.3 - 8.[address] AST SerPl-cCnc 23.0 U/L 12/31/2024 10 - 55 [facility] T Globulin Ser Calc-mCnc 3.5 g/dL 12/31/2024 1.5 - 3.9 [facility] BUN SerPl-mCnc 19.0 mg/dL 12/31/2024 8 - [address] Chloride SerPl-sCnc 101.0 mmol/L 12/31/2024 98 - 1 07 [facility] Bilirub SerPl-mCnc 0.3 mg/dL 12/31/2024 0.2 - 1 [facility] Creat SerPl-mCnc 0.8 mg/dL 12/31/2024 0.5 - 1.3 [facility] Calcium SerPl-mCnc 9.0 mg/dL 12/31/2024 8.7 - 10.5 [facility] GFR/BSA.pred SerPlBld [id number] >90.0 12/31/2024 59 - [facility] Basophils num Bld Auto 0.11 Thou/uL 12/31/2024 0 - 0.2 [facility] Lymphocytes/leuk NFr Bld Auto 23.8 % 12/31/2024 [facility] Eosinophil/leuk NFr Bld Auto 2.7 % 12/31/2024 [facility] Platelet num Bld Auto 310.0 Thou/uL 12/31/2024 150 - 450 [facility] MCHC RBC Auto-mCnc 32.4 g/dL 12/31/2024 30 - 36 [facility] Hct VFr Bld Auto 40.7 % 12/31/2024 39 - 54 [facility] PMV Bld Auto 9.1 fL 12/31/2024 7.5 - 12.5 [facility] RDW RBC Auto-Rto 14.9 % Above high normal 12/31/2024 11.5 - 14.5 [facility] Lymphocytes num Bld Auto 3.5 Thou/uL 12/31/2024 1.5 - 4.5 [facility] Imm Granulocytes num Bld Auto 0.06 Thou/uL 12/31/2024 0 - 0.1 [facility] Neutrophils/leuk NFr Bld Auto 65.0 % 12/31/2024 [facility] Hgb Bld-mCnc 13.2 g/dL 12/31/2024 13 - 17.7 [facility] Neutrophils num Bld Auto 9.54 Thou/uL Above high normal 12/31/2024 2 - 7.5 [facility] RBC num Bld Auto 4.76 Mil/uL 12/31/2024 4.5 - 6.2 [facility] Monocytes/leuk NFr Bld Auto 7.4 % 12/31/2024 [facility] WBC num Bld Auto 14.7 Thou/uL Above high normal 12/31/2024 4 - 11 [facility] Eosinophil num Bld Auto 0.4 Thou/uL 12/31/2024 0 - 0.7 [facility] Basophils/leuk NFr Bld Auto 0.7 % 12/31/2024 [facility] Monocytes num Bld Auto 1.08 Thou/uL 12/31/2024 0.2 - 1.5 [facility] Imm Granulocytes/leuk NFr Bld Auto 0.4 % 12/31/2024 [facility] MCV RBC Auto 86.0 fL 12/31/2024 80 - 100 [facility] MCH RBC Qn Auto 27.7 pg 12/31/2024 27 - [address] [facility] Encounters Encounter Type Encounter Reason Primary Diagnosis Location Date Inpatient Pneumothorax, unspecified Pneumothorax, unspecified [facility] 12/30/2024 Care Team Organization Name Specialty Phone Email Start Date End Da te [facility] 12/31/2024
--- OUTSIDE RECORDS SUMMARY | 2025-01-09 17:34 | XMS_ITS | Clinical Summary ---
Author Organization [facility] Address [address] [place] [id number] Care Team Providers Care Head Of Ict Name Role Phone Unknown Primary Care Provider Allergies Active Allergy Reactions Criticality Noted Date Comments Penicillins Rash/Dermatitis Low 12/30/2024 Medications acetaminophen (TYLENOL) 325 MG tabletIndicatio ns:Pneumothorax Take 3 tablets (975 mg total) by mouth every 6 (six) hours around the clock. 01/02/2025 Active gabapentin (NEURONTIN) 300 MG capsuleIndicati ons:Pneumothora x Take 1 capsule (300 mg total) by mouth 3 (three) times a day. 42 capsule 01/02/2025 Active methocarbamol (ROBAXIN) 750 MG tabletIndicatio ns:Pneumothorax Take 1 tablet (750 mg total) by mouth 3 (three) times a day. 21 tablet 01/02/2025 Active oxyCODONE (ROXICODONE) 5 MG immediate release tabletIndicatio ns:Pneumothorax Take 1 tablet (5 mg total) by mouth every 4 (four) hours as needed for severe pain. Max Daily Amount: 30 mg 10 tablet 01/02/2025 Active polyethylene glycol (miraLAx) 17 g packetIndicatio ns:Pneumothorax Take 1 packet (17 g total) by mouth daily. 01/03/2025 5 Active senna-docusate (SENNA-S) 8.6-50 MGIndications:P neumothorax Take 2 tablets by mouth nightly as needed for constipation . 01/02/2025 5 Active Active Problems Problem Noted Date Diagnosed Date Pneumothorax on left 12/31/2024 Encounters Date Type Department Care Team Description 01/03/2025 Orders Only [facility] Thoracic Surgery [address] [phone] PA-C 12/31/2024 1:05 AM EDT Ancillary Procedure [facility] Radiology [address] [place] [phone] Provider, File Room 12/31/2024 1:00 AM EDT Ancillary Procedure [facility] [address] [place] [phone] Provider, File Room 12/31/2024 1:00 AM EDT Ancillary Procedure [facility] [address] [place] [phone] Provider, File Room 12/31/2024 12:55 AM EDT Ancillary Procedure [facility] [address] [place] [phone] Provider, File Room 12/31/2024 12:55 AM EDT Ancillary Procedure [facility] [address] [place] [phone] Provider, File Room 12/30/2024 10:33 PM EDT - 01/02/2025 6:30 PM EDT Hospital Encounter [facility] [address] [phone] Shawn Marquez MD Van Backer, Justin T, MD Pneumothorax (Primary Dx); Pneumothorax, unspecified type; OAD (obstructive airway disease) ([facility]); Opioid abuse, continuous ([facility]) Discharge Disposition: Home or Self Care 12/30/2024 Orders Only [facility] Radiology [address] [place] [phone] Provider, File Room 12/30/2024 Travel from Last 3 Months Social History Tobacco Use Types Packs/Day Years Used Date Smoking Tobacco: Every Day Cigarettes Smokeless Tobacco: Never Tobacco Cessation:Ready to Q uit: Not Asked; Counseling Given: Not Answered [facility] Utilities Answer Date Recorded In the past 12 months has [employer] electric, gas, oil, or water company threatened [...] any time in the past 12 m [facility], were you homeless or living in a long-term (including now)? No 12/31/2024 Sex and Gender Information Value Date Recorded Sex Assigned at Male 12/30/2024 11:52 PM EDT Legal Sex Male 7:58 PM EDT Gender Identity Male 12/30/2024 11:52 PM EDT Sexual Orientation Heterosexual (straight) 12/30 11:52 PM EDT Last Filed Vital Signs Vital Sign Reading Time Taken Comments Blood Pressure 141/76 01/02/2025 3:54 PM EDT Pulse 73 01/02/2025 3:54 PM EDT Temperature 36.4 C (97.6 F) 01/02/2025 3:54 PM EDT Respiratory Rate 18 01/02/2025 3:54 PM EDT Oxygen Saturation 99% 01/02/2025 3:54 PM EDT Inhaled Oxygen Concentration - - Weight 63.5 kg (140 lb) 12/31/2024 5:00 AM EDT Height 172.7 cm (5' 8 ) 12/31/2024 5:00 AM EDT Body Mass Index 21.29 12/31/2024 5:00 AM EDT Plan of Treatment Health Maintenance Due Date Last Done Comments Hepatitis C Virus Screening 1960 HIV Screening 1973 DTaP/Tdap/Td Vaccines (1 - Tdap) 12/07/1979 Pneumococcal Vaccines 50+ (1 of 2 - PCV) 12/07/1979 Colonoscopy 2005 Zoster (Shingles) Vaccine (1 of 2) 2010 Influenza Vaccine 12/07/2024 COVID-19 Vaccine (1 - 2023-2 5 season) 2025 RSV Vaccine 60 years and old er and Patients (1 - 1-dose 75+ series) 12/07/2035 Hepatitis B Vaccines Aged Out No long er eligible based on patient's age to complete this topic Procedures Procedure Name Priority Date/Time Associated Diagnosis Comments XR CHEST 1 VIEW-PORTABLE Timed 01/02/2025 3:26 PM EDT XR CHEST 1 VIEW-PORTABLE Timed 01/02/2025 8:55 AM EDT COMPLETE BLOOD COUNT, WITHOUT DIFFERENTIAL Routine 01/02/2025 6:16 AM EDT XR CHEST 1 VIEW-PORTABLE Timed 01/01/2025 12:59 PM EDT XR CHEST 1 VIEW-PORTABLE Timed 01/01/2025 9:[address] THORAX W/O CONTRAST Routine 11:10 PM EDT ECG 12-LEAD Routine 12/31/2024 6:16 AM EDT CR CHEST ARCHIVE FOR REFERENCE ONLY Routine 12/31/2024 12:[address] CHEST ARCHIVE FOR REFERENCE ONLY Routine 12/31/2024 12:57 AM EDT CR CHEST ARCHIVE FOR REFERENCE ONLY Routine 12/31/2024 12:54 AM EDT CR CHEST ARCHIVE FOR REFERENCE ONLY Routine 12/31/2024 12:[address] CHEST ARCHIVE FOR REFERENCE ONLY Routine 12/31/2024 12:54 AM EDT TYPE AND SCREEN STAT 12/30/2024 11:40 PM EDT XR CHEST 1 VIEW-PORTABLE STAT 12/30/2024 11:32 PM EDT COMPREHENSIVE METABOLIC PANEL STAT 12/30/2024 11:01 PM EDT COMPLETE BLOOD COUNT, WITH DIFFERENTIAL STAT 12/30/2024 11:01 PM EDT from Last 3 Months Results * XR Chest 1 view-Portable (01/02/2025 3:26 PM EDT) Only the most recent of5 resultswithin the time period is included. Anatomical Region Laterality Modality Chest Computed Radiogr aphy 01/02/2025 2:43 PM EDT Impressions 01/02/2025 5:01 PM EDT Tiny pneumothorax as described above. Narrative 01/02/2025 5:01 PM EDT EXAMINATION: XR CHEST CLINICAL INFORMATION: S/p clamp trial of left pigtail for PTX COMPARISON: 01/02/2025 TECHNIQUE: Frontal view of the chest was obtained. FINDINGS: There is a tiny pneumothorax seen at the left apex (see saved wagner images) that was not identified with certainty at the time of the prior study. There is also some loculated air/pneumothorax in the left costophrenic sulcus which appears increased when compared to prior. No other change. Procedure Note Sebastián Prieto MD - 01/02/2025 EXAMINATION: XR CHEST CLINICAL INFORMATION: S/p clamp trial of left pigtail for PTX COMPARISON: 01/02/2025 TECHNIQUE: Frontal view of the chest was obtained. FINDINGS: There is a tiny pneumothorax seen at the left apex (see saved wagner images) that was not identified with certainty at the time of the prior study. There is also some loculated air/pneumothorax in the left costophrenic sulcus which appears increased when compared to prior. No other change. IMPRESSION: Tiny pneumothorax as described above. Hector Street PA-C IM DIAGNOSTIC IMAGING [facility] Final Result * (ABNORMAL) Complete Blood Count WITHOUT Differential - Early AM (01/02/2025 6:16 AM EDT) White Blood Cell Count 8.7 4.0 - 11.0 Thou/uL 01/02/2025 7:09 AM [facility] Platelet Count 255 150 - 450 Thou/uL 01/02/2025 7:09 AM [facility] Hemoglobin 12.6(L) 13.0 - 17.7 g/dL 01/02/2025 7:09 AM [facility] Hematocrit 38.8(L) 39.0 - 54.0 % 01/02/2025 7:09 AM [facility] Red Blood Cell Count 4.44(L) 4.50 - 6.20 Mil/uL 01/02/2025 7:09 AM [facility] MCV 87 80 - 100 fL 01/02/2025 7:09 AM [facility] MCH 28.4 27.0 - 31.0 pg 01/02/2025 7:09 AM [facility] MCHC 32.5 30.0 - 36.0 g/dL 01/02/2025 7:09 AM [facility] RDW 14.6(H) 11.5 - 14.5 % 01/02/2025 7:09 AM [facility] MPV 9.0 7.5 - 12.5 fL 01/02/2025 7:09 AM [facility] Blood Blood specimen / Unknown 01/02/2025 6:16 AM EDT 01/02/2025 6:47 AM EDT us Amelia Corona APRN LAB BLOOD ORDERABLES Final Result [facility] [address] [place] [address], [facility] [address] [place] [address] * CT Thorax w/o contrast (12/31/2024 11:10 PM EDT) Anatomical Region Laterality Modality Chest Computed Tomogra phy 12/31/2024 11:0 0 PM EDT Impressions 01/01/2025 3:21 PM EDT 1. Left-sided chest tube with its tip terminating in the medial left lower chest. Small residual left hydropneumothorax, significantly improved from prior CT dated 12/30/2024. 2. Again noted consolidation/atelectasis in the left lung upper and lower lobes centered upon the major fissure, most pronounced within the superior segment of the left lower lobe with architectural distortion. Interval improvement in aeration of the left lower lobe. 3. 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 4. 1.3 cm cavitary nodule/nodular opacity in the left lower lobe concerning for infectious process. Recommend follow-up after treatment to assess for resolution. 5. Similar few pulmonary nodules as detailed. 6. Again noted advanced emphysema. 7. Similar mildly prominent mediastinal lymph nodes which are likely reactive. 8. Again noted left chest wall emphysema slightly decreased from prior exam. I personally reviewed the images and the resident's preliminary report and AGREE with the report as it is now presented ([email or web address]). Narrative 01/01/2025 3:21 PM EDT EXAMINATION: CT CHEST WITHOUT CONTRAST CLINICAL INFORMATION: Eval for left lung nodule and L PTX. COMPARISON: Chest radiograph 01/01/25, and is radiograph 12/30/24 TECHNIQUE: Multidetector volumetric imaging was performed from the thoracic inlet to below the diaphragms without intravenous contrast. Sagittal and coronal reformatted images were obtained on the technologist's workstation. This CT examination was performed using dose optimization techniques as appropriate, variously including the following: *Automated exposure control *Adjustment of mA and/or kV according to patient size (this includes techniques or standardized protocols for targeted exams where dose is matched to indication/reason for exam; i.e. extremities or head) *Use of iterative reconstruction technique Total exam dose-length product 117.9 mGy-cm FINDINGS: LUNGS AND PLEURA: Small amount of secretions within the trachea. The central airways are otherwise patent. Left-sided chest tube with its tip terminating in the medial left lower chest. Small residual left hydropneumothorax, significantly improved from prior CT dated 12/30/2024. Again noted consolidation/atelectasis in the left lung upper and lower lobes centered upon the major fissure, most pronounced within the superior segment of the left lower lobe with architectural distortion. Interval improvement in aeration of the left lower lobe. 1.3 x 1.1 cm cavitary nodular opacity in the left lower lobe, 303:297. 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 Similar streaky atelectasis in the right upper and middle lobe. Similar 6 mm nodule in the lateral right upper lobe, 603:21 and additional 3 mm nodule in the lateral right upper lobe, 303:197. Similar advanced emphysema. CORONARY ARTERY CALCIFICATION: Mild to moderate MEDIASTINUM: Normal heart size. No pericardial effusion. Similar 1.1 cm short axis left lower paratracheal lymph node, 303:178 and additional prominent but nonenlarged mediastinal lymph nodes which are likely reactive. VASCULAR: Similar mild aneurysmal dilatation of ascending thoracic aorta measuring up to 4 cm with atherosclerotic calcifications. CHEST WALL/AXILLA: No axillary or internal mammary lymphadenopathy. Again noted left chest wall emphysema slightly decreased from prior exam. OSSEOUS STRUCTURES: No acute or suspicious osseous abnormality. Multilevel thoracic spondylosis. UPPER ABDOMEN: Partially visualized mild gaseous distention of the stomach with diffuse wall thickening. Procedure Note Sven Verde MD - 01/01/2025 EXAMINATION: CT CHEST WITHOUT CONTRAST CLINICAL INFORMATION: Eval for left lung nodule and L PTX. COMPARISON: Chest radiograph 01/01/25, and is radiograph 12/30/24 TECHNIQUE: Multidetector volumetric imaging was performed from the thoracic inlet to below the diaphragms without intravenous contrast. Sagittal and coronal reformatted images were obtained on the technologist's workstation. This CT examination was performed using dose optimization techniques as appropriate, variously including the following: *Automated exposure control *Adjustment of mA and/or kV according to patient size (this includes techniques or standardized protocols for targeted exams where dose is matched to indication/reason for exam; i.e. extremities or head) *Use of iterative reconstruction technique Total exam dose-length product 117.9 mGy-cm FINDINGS: LUNGS AND PLEURA: Small amount of secretions within the trachea. The central airways are otherwise patent. Left-sided chest tube with its tip terminating in the medial left lower chest. Small residual left hydropneumothorax, significantly improved from prior CT dated 12/30/2024. Again noted consolidation/atelectasis in the left lung upper and lower lobes centered upon the major fissure, most pronounced within the superior segment of the left lower lobe with architectural distortion. Interval improvement in aeration of the left lower lobe. 1.3 x 1.1 cm cavitary nodular opacity in the left lower lobe, 303:297. 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 Similar streaky atelectasis in the right upper and middle lobe. Similar 6 mm nodule in the lateral right upper lobe, 603:21 and additional 3 mm nodule in the lateral right upper lobe, 303:197. Similar advanced emphysema. CORONARY ARTERY CALCIFICATION: Mild to moderate MEDIASTINUM: Normal heart size. No pericardial effusion. Similar 1.1 cm short axis left lower paratracheal lymph node, 303:178 and additional prominent but nonenlarged mediastinal lymph nodes which are likely reactive. VASCULAR: Similar mild aneurysmal dilatation of ascending thoracic aorta measuring up to 4 cm with atherosclerotic calcifications. CHEST WALL/AXILLA: No axillary or internal mammary lymphadenopathy. Again noted left chest wall emphysema slightly decreased from prior exam. OSSEOUS STRUCTURES: No acute or suspicious osseous abnormality. Multilevel thoracic spondylosis. UPPER ABDOMEN: Partially visualized mild gaseous distention of the stomach with diffuse wall thickening. IMPRESSION: 1. Left-sided chest tube with its tip terminating in the medial left lower chest. Small residual left hydropneumothorax, significantly improved from prior CT dated 12/30/2024. 2. Again noted consolidation/atelectasis in the left lung upper and lower lobes centered upon the major fissure, most pronounced within the superior segment of the left lower lobe with architectural distortion. Interval improvement in aeration of the left lower lobe. 3. 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 4. 1.3 cm cavitary nodule/nodular opacity in the left lower lobe concerning for infectious process. Recommend follow-up after treatment to assess for resolution. 5. Similar few pulmonary nodules as detailed. 6. Again noted advanced emphysema. 7. Similar mildly prominent mediastinal lymph nodes which are likely reactive. 8. Again noted left chest wall emphysema slightly decreased from prior exam. I personally reviewed the images and the resident's preliminary report and AGREE with the report as it is now presented (RADPAL1). us Janice Blanchard PA-C IMG CT ORDERABLES Final Res ult * ECG 12 lead (12/31/2024 6:16 AM EDT) Ventricular rate 64 BPM EKG [facility] Atrial rate 64 BPM EKG [facility] P-R interval 172 ms EKG [facility] QRS duration 96 ms EKG [facility] Q-T interval 422 ms EKG [facility] QTC calculation (Bazett) 436 ms EKG [facility] P axis 62 degrees EKG [facility] R axis 33 degrees EKG [facility] T axis 59 [facility] 12/31/2024 6:16 AM EDT Narrative EKG [facility] - 12/31/2024 9:17 PM EDT Normal sinus rhythm Left atrial enlargement No previous ECGs available Confirmed by MD Yanez Melissa ([id number]) on 12/31/2024 9:17:58 PM Procedure Note Jie Yanez MD - 12/31/2024 Normal sinus rhythm Left atrial enlargement No previous ECGs available Confirmed by MD Yanez Melissa ([id number]) on 12/31/2024 9:17:58 PM us Fiona Chambers FORK OPERATOR ECG ORDERABLES Final Result EKG [facility] * CR Chest Archive for Reference only (12/31/2024 12:57 AM EDT) Only the most recent of3 resultswithin the time period is included. Narrative [place] - 12/31/2024 12:57 AM EDT This study has been auto finalized and does not contain a result. us File Room Provider IMG DIGITIZE FILMS Final Resu lt Performing Organization Address [facility] Co de Phone Number SHAVONNE [phone] * CT Chest Archive for Reference Only (12/31/2024 12:57 AM EDT) Only the most recent of2 resultswithin the time period is included. Narrative [place] - 12/31/2024 12:57 AM EDT This study has been auto finalized and does not contain a result. File Room Provider IMG DIGITIZE FILMS Final Resu lt Performing Organization Address [facility] de Phone Number SHAVONNE [phone] * Type and Screen (12/30/2024 11:40 PM EDT) ABO/Rh O NEGATIVE 12/31/2024 12:48 AM EDT [facility] Antibody Screen NEGATIVE 12/31/2024 12:48 AM EDT [facility] Specimen Expiration 01/02/2025 12/31/2024 12:48 AM EDT [facility] Blood Bank Comment Specimen collected using [facility] 12/31/2024 12:48 AM EDT [facility] Blood Blood specimen / Unknown 12/30/2024 11:40 PM EDT 12/30/2024 11:56 PM EDT Shawn Marquez MD BLOOD BANK TEST ORDERABLES Fi nal Result Performing Organization Address [facility] Co de Phone Number [address] [address], [address] [address] * (ABNORMAL) Complete Blood Count, with Differential (12/30/2024 11:01 PM EDT) White Blood Cell Count 14.7(H) 4.0 - 11.0 Thou/uL 12/31/2024 12:05 AM [facility] Platelet Count 310 150 - 450 Thou/uL 12/31/2024 12:05 AM [facility] Hemoglobin 13.2 13.0 - 17.7 g/dL 12/31/2024 12:05 AM [facility] Hematocrit 40.7 39.0 - 54.0 % 12/31/2024 12:05 AM [facility] Red Blood Cell Count 4.76 4.50 - 6.20 Mil/uL 12/31/2024 12:05 AM [facility] MCV 86 80 - 100 fL 12/31/2024 12:05 AM [facility] MCH 27.7 27.0 - 31.0 pg 12/31/2024 12:05 AM [facility] MCHC 32.4 30.0 - 36.0 g/dL 12/31/2024 12:05 AM [facility] RDW 14.9(H) 11.5 - 14.5 % 12/31/2024 12:05 AM [facility] MPV 9.1 7.5 - 12.5 fL 12/31/2024 12:05 AM [facility] Neutrophils Auto 65.0 % 01/01/20 12:05 AM [facility] Immature Granulocytes 0.4 % 12/31/2024 12:05 AM [facility] Lymphocytes Auto 23.8 % 01/01/20 12:05 AM [facility] Monocytes Auto 7.4 % 12/31/2024 12:05 AM [facility] Eosinophils Auto 2.7 % 01/01/20 12:05 AM [facility] Basophils Auto 0.7 % 12/31/2024 12:05 AM [facility] Abs Neutrophils Auto 9.54(H) 2.00 - 7.50 Thou/uL 12/31/2024 12:05 AM [facility] Abs Immature Granulocytes 0.06 0.00 - 0.10 Thou/uL 12/31/2024 12:05 AM [facility] Abs Lymphocytes Auto 3.50 1.50 - 4.50 Thou/uL 12/31/2024 12:05 AM [facility] Abs Monocytes Auto 1.08 0.20 - 1.50 Thou/uL 12/31/2024 12:05 AM [facility] Abs Eosinophils Auto 0.40 0.00 - 0.70 Thou/uL 12/31/2024 12:05 AM [facility] Abs Basophils Auto 0.11 0.00 - 0.20 Thou/uL 12/31/2024 12:05 AM [facility] Blood Blood specimen / Unknown 12/30/2024 11:01 PM EDT 12/30/2024 11:50 PM EDT us Payton Rosario FORK OPERATOR LAB BLOOD ORDERABLES Final Re sult [address] [address], [address] [address] * Comprehensive Metabolic Panel (12/30/2024 11:01 PM EDT) Glucose 91 65 - 99 mg/dL 12/31/2024 12:19 AM [facility] Comment:Fasting: <100 mg/dL, Non-Fasting: <200 mg/dL (ADA 2005) Blood Urea Nitrogen (BUN) 19 8 - 21 mg/dL 12/31/2024 12:19 AM [facility] Creatinine 0.8 0.5 - 1.3 mg/dL 12/31/2024 12:19 AM [facility] eGFR >90 >59 12/31/2024 12:19 AM [facility] Comment:CKD-EPI (2020) in mL /min/1.73 sq meters. Sodium 137 136 - 145 mmol/L 12/31/2024 12:19 AM [facility] Potassium 4.4 3.4 - 5.3 mmol/L 12/31/2024 12:19 AM [facility] Chloride 101 98 - 107 mmol/L 12/31/2024 12:19 AM [facility] CO2 26 22 - 33 mmol/L 12/31/2024 12:19 AM [facility] Calcium 9.0 8.7 - 10.5 mg/dL 12/31/2024 12:19 AM [facility] Alkaline Phosphatase 123 45 - 128 U/L 12/31/2024 12:19 AM [facility] Aspartate Aminotrans (AST) 23 10 - 55 U/L 12/31/2024 12:19 AM [facility] Alanine Aminotrans (ALT) 18 10 - 55 U/L 12/31/2024 12:19 AM [facility] Bilirubin, Total 0.3 0.2 - 1.0 mg/dL 12/31/2024 12:19 AM [facility] Protein, Total 7.4 6.3 - 8.3 g/dL 12/31/2024 12:19 AM [facility] Albumin 3.9 3.4 - 4.8 g/dL 12/31/2024 12:19 AM [facility] BUN/Creatinine Ratio 24 10.0 - 25.0 Ratio 12/31/2024 12:19 AM [facility] Globulin 3.5 1.5 - 3.9 g/dL 12/31/2024 12:19 AM [facility] Albumin/Globulin Ratio 1.1 1.0 - 3.0 Ratio 12/31/2024 12:19 AM [facility] Anion Gap 10 7 - 17 12/31/2024 12:19 AM [facility] Blood Blood specimen / Unknown 12/30/2024 11:01 PM EDT 12/30/2024 11:50 PM EDT Payton Rosario FORK OPERATOR LAB BLOOD ORDERABLES Final Re sult [address] [address], [address] [address] from Last 3 Months Insurance [employer] MGD MEDICARE Advance Directives * Full Code (Latest Code Status on File) Date Activated Date Inactivated Comments 12/31/2024 12:31 AM Question Answer Comments Decision Thoroughly Discussed with: Patient Care Teams Head Of Ict Relationship Specialty Start Date End Date Unknown Unknow Provider Address PCP - General 12/30/24
--- OUTSIDE RECORDS SUMMARY | 2025-01-09 17:34 | XMS_ITS | Clinical Summary ---
Author Organization [facility] Address [address] [place] [address] Phone Care Team Providers Care Vp Home Health Name Role Phone Pauline Dc MD Primary Care Provider [phone] Allergies Active Allergy Reactions Criticality Noted Date Comments Penicillins 07/01/2017 Medications albuterol 90 mcg/actuation inhaler Inhale 2 puffs into the lungs 4 (four) times a day. 1 Inhaler 8 Active Additional Information Patient not taking.Reported on 02/20/2024 Active Problems No known active problems Social History Tobacco Use Types Packs/Day Years [...] Orientation Straight 07/01/2017 10 :37 AM EST Last Filed Vital Signs Vital Sign Reading Time Taken Comments Blood Pressure 130/67 02/20/2024 12:46 PM EDT Pulse 88 02/20/2024 12:46 PM EDT Temperature 36.6 C (97.9 F) 02/20/2024 12:46 PM EDT Respiratory Rate 16 02/20/2024 12:46 PM EDT Oxygen Saturation 95% 02/20/2024 12:46 PM EDT Inhaled Oxygen Concentration - - Weight 65.8 kg (145 lb) 02/20/2024 8:45 AM EDT Height 172.7 cm (5' 8 ) 02/20/2024 8:45 AM EDT Body Mass Index 22.05 02/20/2024 8:45 AM EDT Plan of Treatment Health Maintenance Due Date Last Done Comments Adult Td,Tdap Booster 1960 LIPID PANEL 1960 DEPRESSION SCREENING 1972 SMOKING Hx and SMOKELESS TOB ACCO SCREENING 1973 HEPATITIS C SCREENING 1978 HIV ONE-TIME SCREENING (18-6 5 YEARS) 1978 PNEUMOCOCCAL VACCINES (50+ y ears) (1 of 2 - PCV) 12/07/1979 COLOGUARD 2005 COLONOSCOPY 2005 COLORECTAL CANCER SCREENING 2005 FIT TEST 2005 FOBT 2005 SIGMOIDOSCOPY 2005 VIRTUAL COLONOSCOPY 2005 ZOSTER VACCINES (1 of 2) 2010 INFLUENZA VACCINE (#1) 2024 COVID-19 VACCINE ( - 2023-2 5 season) 2025 RSV VACCINE (1 - 1-dose 75+ series) 12/07/2035 HEPATITIS A VACCINES Aged Out No long er eligible based on patient's age to complete this topic HIB VACCINES Aged Out No longer eligi ble based on patient's age to complete this topic MENINGOCOCCAL VACCINES (ACWY) Aged Out No longer eligible based on patient's age to complete this topic MENINGOCOCCAL VACCINES (B) Aged Out N o longer eligible based on patient's age to complete this topic Medical Devices Not on file Insurance MEDICARE PART A & B [id number] [place] [address] MEDICARE REPLACEMENT MEDICARE PART A & B [facility] MEDICARE REPLACEMENT MEDICARE PART A & B [facility] MEDICARE REPLACEMENT MEDICARE PART A & B [facility] MEDICARE REPLACEMENT MEDICARE PART A & B [facility] MEDICARE REPLACEMENT MEDICARE PART A & B Member Subscriber Plan / Payer (Ef fective 2013-Present) Name:Srini Gant Member ID:[id number] Relation to Subscriber:Self Name:Srini Gant Subscriber ID:[id number] Payer ID:[id number] Group ID:Not on file Type:Medicare Address: [employer] [address] [place] [id number] [place] [address] MEDICARE REPLACEMENT MEDICARE PART A & B [facility] MEDICARE REPLACEMENT MEDICARE PART A & B [facility] MEDICARE REPLACEMENT MEDICARE PART A & B [facility] MEDICARE REPLACEMENT Care Teams Vp Home Health Relationship Specialty Start Date End Date Pauline Dc MD [facility] [place] [address] PCP - General Internal Medicine 02/20/24 Additional Source Comments The information contained in this document represents components of the legal health record. It is not the complete legal health record.[facility]
== END 2025-01-09 16:14 | disposition home or self-care (01) ==
LOC: HO.HPS 15:35
PROVIDERS: PCP Internal Medicine; Visit Provider Internal Medicine
DX: Z93.8 Other artificial opening status (principal); F17.210 Nicotine dependence, cigarettes, uncomplicated; J44.9 Chronic obstructive pulmonary disease, unspecified; J94.8 Other specified pleural conditions; J85.2 Abscess of lung without pneumonia
CPT/HCPCS: 99214

== ENCOUNTER → 2025-01-09 15:34 | Outpatient (BNVA) | payer MEDICARE, SELFPAY | PROVIDERS: PCP Internal Medicine; Visit Provider Internal Medicine | DX: J85.2 Abscess of lung without pneumonia (principal); F17.210 Nicotine dependence, cigarettes, uncomplicated; J44.9 Chronic obstructive pulmonary disease, unspecified; J94.8 Other specified pleural conditions | CPT/HCPCS: 99212 ==

== ENCOUNTER 2025-02-05 09:26 | Inpatient (IN) | payer MEDICARE, SELFPAY ==
--- NOTE | ~2025-02-05 | CT_ITS ---
CLINICAL HISTORY: LUQ pain. CT abdomen and pelvis with contrast Comparison: CT/[place]/SR - CT ABDOMEN PELVIS WITH IV CONTRAST - 08/13/24 11:26 EDT Findings: No consolidation or effusion. Marked dilation of the CBD measuring 1.6 cm in diameter slightly worsened in the interval, was previously 1.2 cm diameter. Mild central intrahepatic ductal dilation. Moderate mucosal thickening of the ampulla / 2nd part of the duodenum. Gallbladder is within normal limits. No no radiopaque gallstones.Remainder of the solid organs are within normal limits. No bowel obstruction, pneumoperitoneum, or pneumatosis. Pelvic contents unremarkable. Appendix is not definitely visualized. No acute fracture. Moderate to severe multilevel spondylosis of the lumbar spine with moderate to severe spinal canal narrowing at L3-L4, and L4-L5 levels. IMPRESSION: No acute findings. Interval worsening of diffuse marked dilation of the CBD measuring 1.6 cm in diameter, previously 1.2 cm. Mild central intrahepatic ductal dilation. No radiopaque obstructing stone is seen. Moderate mucosal thickening of the ampulla / 2nd part of the duodenum. Moderate to severe multilevel spondylosis of the lumbar spine with moderate to severe spinal canal narrowing at L3-L4, and L4-L5 levels. This document has been electronically signed by: Manuel Richardson MD on 02/05/2025 19:51:08
--- NOTE | ~2025-02-05 | XR_ITS ---
EXAMINATION: XR ORBITS CLINICAL INFORMATION: Rule out foreign body to the eyes, patient states history of metal. COMPARISON: None available. TECHNIQUE: Post projection and lateral views of the orbits. FINDINGS: No metallic or radiopaque foreign body in the orbits. No air-fluid levels in the paranasal sinuses. Questionable retention cysts versus polyp in the left inferior maxillary sinus. Calcifications overlapping the celiac torsion,. XR/XR Orbits For Foreign Body IMPRESSION: No metallic foreign body, orbits. Electronically signed by: Nguyễn Araiza MD 02/06/2025 12:28 PM EDT
--- NOTE | ~2025-02-05 | XR_ITS ---
EXAMINATION: XR CHEST 2 VIEWS HISTORY: sob COMPARISON: Comparison is made with the prior examination dated 12/30/2024. FINDINGS: PA and lateral views of the chest are submitted. The lungs are hyperinflated, consistent with COPD. Again seen is an airspace opacity in the left midlung zone extending to the hilum. There is a small left pleural effusion. There is no pneumothorax or pulmonary vascular congestion. The heart is normal in size. There is degenerative disc disease of the spine. There is a healing fracture of the posterior aspect of the left 4th rib. XR/XR chest 2V IMPRESSION: COPD. Airspace opacity in the left midlung zone extending to the hilum. A mass is not excluded. Small left pleural effusion. Electronically signed by: Shen Harris MD 02/05/2025 09:56 AM EDT
--- NOTE | ~2025-02-05 | MR_ITS ---
EXAMINATION: MR MRCP WITHOUT CONTRAST CLINICAL INFORMATION: Abdominal pain. CBD dilatation. COMPARISON: Correlated to CT dated February 05, 2025. TECHNIQUE: MRCP is performed without gadolinium contrast. Axial and coronal T2 haste sequences. Axial and coronal T2 fat-sat haste sequences. Axial in and out 3-D phase sequences. 3-D space MRCP triggered. MRCP radial T2 fat-sat sequence. Coronal oblique T2 fat-sat single shot FINDINGS: LUNG BASES: There is [heterogeneous septated hyperintense T2 signal abnormality in the left lower lung lobe/left lung base with small volume left-sided pleural effusion. LIVER, GALLBLADDER, AND BILIARY TREE: Liver measures 15 cm. No focal signal abnormality. The flow-void signal within the main vessels is normal. Gallbladder is fluid-filled without distention. There is no pericholecystic fluid collection or gallbladder wall thickening. Common bile duct measures 8 mm in the distal aspect and 13 mm and the proximal aspect just distal to the cystic duct junction. There is mild intrahepatic biliary ductal dilatation. There is a 5 mm isointense T2 signal at the junction with the second portion of the duodenum demonstrated an abrupt cut off/pencil shaped morphology distal common bile duct PANCREAS: The main pancreatic duct measures 2.3 mm. No peripancreatic fluid collections. SPLEEN: 9 cm. Small, 9 mm accessory spleen. ADRENAL GLANDS: Soft tissue fullness without nodular lesions. KIDNEYS AND URETERS: No hydronephrosis. Subcentimeter cyst in the kidneys. GASTROINTESTINAL TRACT: Abundant stool in the large intestine. No intestinal obstruction pattern. ABDOMINAL WALL: Questionable small tiny fat-containing umbilical hernia. LYMPH NODES: No mesenteric or retroperitoneal lymphadenopathy. VASCULAR: No aneurysm or dissection, abdominal aorta. OSSEOUS STRUCTURES: Multilevel thoracolumbar spondylosis, mild. And right-sided perineural cysts at T11-12. Paramagnetic field distortion secondary to metallic hardware at the L5-S1 level. Central spinal canal stenosis at L4-5 and likely L5-S1 on a degenerative basis. MR/MR MRCP IMPRESSION: Intrahepatic and extrahepatic biliary ductal dilatation likely secondary to stenosis of the sphincter of Oddi. Intrinsic lesion cannot be excluded. No cholelithiasis or gross choledocholithiasis. Multiseptated loculated left-sided pleural effusion versus cystic lesion left lower hemithorax. Electronically signed by: Nguyễn Araiza MD 02/06/2025 01:29 PM EDT RP
--- NOTE | ~2025-02-05 | CT_ITS ---
CLINICAL HISTORY: Chest pain. PE? mass? Pneumonia CT angiography chest with contrast. 3D Postprocessing. Comparison: CT/REG/SR - CT CHEST WO IV CON - 12/30/24 19:45 EDT Findings: The heart size is normal. RV/LV ratio is normal. The thoracic aorta is normal caliber. No acute pulmonary embolus. The visualized thyroid and mediastinum are unremarkable. Interval increase in left lower lobe superior segment consolidation. Redemonstration of volume loss and scarring of the left lung. No acute fractures. IMPRESSION: 1. No pulmonary emboli. No acute aortic syndrome. 2. Interval increase in left lower lobe superior segment consolidation, concerning for pneumonia. This document has been electronically signed by: Manuel Richardson MD on 02/05/2025 19:30:16
[2025-02-05 09:32] VITALS: BP 130/81; PULSE 77; RESP 16; TEMP 36.6; O2SAT 99; BMI 23.2
[2025-02-05 09:48] LABS: MANUAL DIFF FLAG NO
[2025-02-05 09:50] LABS: Hematocrit 40.5 % (42.0-52.0); Hemoglobin 13.4 g/dl (14.0-18.0); Imm Gran Abs Auto 0.06 X10*3/uL (0.00-0.03); Imm Gran Pct Auto 0.5 % (0.0-0.4); Lymphocytes Absolute Auto 2.9 X10*3/uL (1.2-4.9); Mean Corpuscular HGB Conc 33.1 g/dl (31.0-36.0); Mean Corpuscular Hemoglobin 28.7 pg (27.0-33.0); Mean Corpuscular Volume 86.7 fL (80.0-98.0); NRBC Abs Auto 0.000 X10*3/uL (0.0-0.012); NRBC Pct Auto 0.0 /100WBC (0.0-0.2); Platelet Count 271 X10*3/uL (160-400); Red Blood Count 4.67 X10*6/uL (4.60-5.80); White Blood Count 12.5 X10*3/uL (4.8-10.8)
[2025-02-05 10:07] LABS: Alanine Aminotransferase 21 U/L (0-40); Albumin Level 4.0 g/dL (3.5-5.0); Alkaline Phosphatase 153 U/L (39-117); Anion Gap 12 (12-20); Aspartate Amino Transferase 22 U/L (5-37); Blood Urea Nitrogen 13 mg/dL (9-16); Calcium 9.5 mg/dL (8.4-10.2); Carbon Dioxide 28 mmol/L (22-29); Chloride 100 mmol/L (96-108); Creatinine Clr Calc Pharmacy 84.0; Estimated Glomerular Filt Rate > 60; Potassium 4.8 mmol/L (3.3-5.1); Sodium 135 mmol/L (135-145); Total Protein 7.7 g/dL (6.5-8.0)
[2025-02-05 10:12] LABS: Troponin-I High Sensitivity < 2.7 ng/L (<3.5-35.0)
[2025-02-05 10:13] LABS: COVID-19 Test Negative (Negative); IDNOW Serial# 55D5AD1C; IDNOW Serial# 58CA691E; Influenza B2 Negative (Negative)
[2025-02-05 13:45] VITALS: BP 130/83; PULSE 95; RESP 16; O2SAT 94
--- NOTE | 2025-02-05 13:48 | PC.NURSE ---
PPt roomed to zuniga bed VSS, seen by provider- hx of left pneumothorax and pt now has painand tenderness at same site and is concerned about repeat.
--- NOTE | 2025-02-05 13:53 | PC.NURSE ---
pt connected to full monitor. NSR no ectopy
--- OUTSIDE RECORDS SUMMARY | 2025-02-05 14:42 | XMS_ITS | Clinical Summary ---
Author Organization [facility] Address [address] [place] [address] Care Team Providers Care Biology Laboratory Assistant Name Role Phone Unknown Primary Care Provider [phone] Allergies Active Allergy Reactions Criticality Noted Date [...] (17 g total) by mouth daily. 01/03/2025 Active senna-docusate (SENNA-S) 8.6-50 MGIndications:P neumothorax Take 2 tablets by mouth nightly as needed for constipation . 01/02/2025 Active Active Problems Problem Noted Date Diagnosed Date Pneumothorax on left 12/31/2024 Encounters Date Type Department Care Team Description 01/03/2025 Orders Only [facility] Thoracic Surgery [address] [address] PA-C 12/31/2024 1:05 AM EDT Ancillary Procedure [facility] Radiology [address] [facility] [place] [address] Provider, File Room 12/31/2024 1:00 AM EDT Ancillary Procedure [facility] Radiology [address] [place] [address], [place] [address] Provider, File Room 12/31/2024 1:00 AM EDT Ancillary Procedure [facility] Radiology [address] [place] [address], [place] [address] Provider, File Room 12/31/2024 12:55 AM EDT Ancillary Procedure [facility] Radiology [address] [place] [address], [place] [address] Provider, File Room 12/31/2024 12:55 AM EDT Ancillary Procedure [facility] Radiology [address] [place] [address], [place] [address] Provider, File Room 12/30/2024 10:33 PM EDT - 01/02/2025 6:30 PM EDT Hospital Encounter [facility] [address] [phone] Shawn Marquez MD Van Backer, Justin T, MD Pneumothorax (Primary Dx); Pneumothorax, unspecified type; OAD (obstructive airway disease) ([facility]); Opioid abuse, continuous ([facility]); Chronic obstructive pulmonary disease, unspecified COPD type ([facility]); Atelectasis; Agitation; Cigarette smoker Discharge Disposition: Home or Self Care 12/30/2024 Orders Only [facility] Radiology [address] [place] [address], [place] [address] Provider, File Room 12/30/2024 Travel from Last 3 Months Social History Tobacco Use Types Packs/Day Years Used Date Smoking Tobacco: Every Day Cigarettes Smokeless Tobacco: Never Tobacco Cessation:Ready to Q uit: Not Asked; Counseling Given: Not Answered [facility] Utilities Answer Date Recorded In the past 12 months has [employer] electric, gas, oil, or water company threatened [...] any time in the past [address] [facility], were you homeless or living in a prison (including now)? No 12/31/2024 Sex and Gender [...] change. IMPRESSION: Tiny pneumothorax as described above. us [address] PA-C IM DIAGNOSTIC [facility] Final Result * (ABNORMAL) Complete Blood Count WITHOUT Differential - Early AM (01/02/2025 6:16 AM EDT) White Blood Cell Count 8.7 4.0 - 11.0 Thou/uL 01/02/2025 7:09 AM [facility] Platelet Count 255 150 - 450 Thou/uL 01/02/2025 7:09 AM [facility] Hemoglobin 12.6(L) 13.0 - 17.7 g/dL 01/02/2025 7:09 AM [facility] Hematocrit 38.8(L) 39.0 - 54.0 % 01/02/2025 7:09 AM [facility] Red Blood Cell Count 4.44(L) 4.50 - 6.20 Mil/uL 01/02/2025 7:09 AM [facility] MCV 87 80 - 100 fL 01/02/2025 7:09 AM [facility] MCH 28.4 27.0 - 31.0 pg 01/02/2025 7:09 AM [facility] MCHC 32.5 30.0 - 36.0 g/dL 01/02/2025 7:09 AM [facility] RDW 14.6(H) 11.5 - 14.5 % 01/02/2025 7:09 AM [facility] MPV 9.0 7.5 - 12.5 fL 01/02/2025 7:09 AM [facility] Blood Blood specimen / Unknown 01/02/2025 6:16 AM EDT 01/02/2025 6:47 AM EDT us Amelia Corona APRN LAB BLOOD ORDERABLES Final Result [facility] [address] [place] [address], [facility] [address] [place] [address] * CT Thorax w/o contrast (12/31/2024 11:10 [...] report as it is now presented (RADPAL1). Janice Blanchard PA-C IMG CT ORDERABLES Final Res ult * ECG 12 lead (12/31/2024 6:16 AM EDT) Pathologist [facility] Ventricular rate 64 BPM EKG [facility] Atrial rate 64 BPM EKG [facility] P-R interval 172 ms EKG [facility] QRS duration 96 ms EKG [facility] Q-T interval 422 ms EKG [facility] QTC calculation (Bazett) 436 ms EKG [facility] P axis 62 degrees EKG [facility] R axis 33 degrees EKG [facility] T axis 59 degrees EKG [facility] 12/31/2024 6:16 AM EDT Narrative EKG [facility] - 12/31/2024 9:17 PM EDT Normal sinus rhythm Left atrial enlargement No previous ECGs available Confirmed by MD Yanez Melissa ([id number]) on 12/31/2024 9:17:58 PM Procedure Note Jie Yanez MD - 12/31/2024 Normal sinus rhythm Left atrial enlargement No previous ECGs available Confirmed by MD Yanez Melissa ([id number]) on 12/31/2024 9:17:58 PM us Fiona Chambers [employer] ECG ORDERABLES Final Result EKG [facility] * CR Chest Archive for Reference only (12/31/2024 12:57 AM EDT) Only the most recent of3 resultswithin the time period is included. Narrative [place] - 12/31/2024 12:57 AM EDT This study has been auto finalized and does not contain a result. us File Room Provider IMG DIGITIZE FILMS Final Resu lt Performing Organization Address [facility] Co de Phone Number SHAVONNE [phone] * CT Chest Archive for Reference Only (12/31/2024 12:57 AM EDT) Only the most recent of2 resultswithin the time period is included. Narrative [place] - 12/31/2024 12:57 AM EDT This study has been auto finalized and does not contain a result. File Room Provider IMG DIGITIZE FILMS Final Resu lt Performing Organization Address [facility] de Phone Number SHAVONNE [phone] * Type and Screen (12/30/2024 11:40 PM EDT) ABO/Rh O NEGATIVE 12/31/2024 12:48 AM EDT [facility] Antibody Screen NEGATIVE 12/31/2024 12:48 AM EDT [facility] Specimen Expiration 01/02/2025 12/31/2024 12:48 AM EDT [facility] Blood Bank Comment Specimen collected using Earring Maker 12/31/2024 12:48 AM EDT [facility] Blood Blood specimen / Unknown 12/30/2024 11:40 PM EDT 12/30/2024 11:56 PM EDT Shawn Marquez MD BLOOD BANK TEST ORDERABLES Fi nal Result Performing Organization Address [facility] de Phone Number [address] [address], [address] [address] * (ABNORMAL) Complete Blood Count, with Differential (12/30/2024 11:01 PM EDT) White Blood Cell Count 14.7(H) 4.0 - 11.0 Thou/uL 12/31/2024 12:05 AM [facility] Platelet Count 310 150 - 450 Thou/uL 12/31/2024 12:05 AM [facility] Hemoglobin 13.2 13.0 - 17.7 g/dL 12/31/2024 12:05 AM [facility] Hematocrit 40.7 39.0 - 54.0 % 12/31/2024 12:05 AM [facility] Red Blood Cell Count 4.76 4.50 - 6.20 Mil/uL 12/31/2024 12:05 AM [facility] MCV 86 80 - 100 fL 12/31/2024 12:05 AM [facility] MCH 27.7 27.0 - 31.0 pg 12/31/2024 12:05 AM [facility] MCHC 32.4 30.0 - 36.0 g/dL 12/31/2024 12:05 AM [facility] RDW 14.9(H) 11.5 - 14.5 % 12/31/2024 12:05 AM [facility] MPV 9.1 7.5 - 12.5 fL 12/31/2024 12:05 AM [facility] Neutrophils Auto 65.0 % 01/01/20 12:05 AM [facility] Immature Granulocytes 0.4 % 12/31/2024 12:05 AM [facility] Lymphocytes Auto 23.8 % 01/01/20 12:05 AM [facility] Monocytes Auto 7.4 % 12/31/2024 12:05 AM [facility] Eosinophils Auto 2.7 % 01/01/20 12:05 AM [facility] Basophils Auto 0.7 % 12/31/2024 12:05 AM [facility] Abs Neutrophils Auto 9.54(H) 2.00 - 7.50 Thou/uL 12/31/2024 12:05 AM [facility] Abs Immature Granulocytes 0.06 0.00 - 0.10 Thou/uL 12/31/2024 12:05 AM [facility] Abs Lymphocytes Auto 3.50 1.50 - 4.50 Thou/uL 12/31/2024 12:05 AM [facility] Abs Monocytes Auto 1.08 0.20 - 1.50 Thou/uL 12/31/2024 12:05 AM [facility] Abs Eosinophils Auto 0.40 0.00 - 0.70 Thou/uL 12/31/2024 12:05 AM [facility] Abs Basophils Auto 0.11 0.00 - 0.20 Thou/uL 12/31/2024 12:05 AM [facility] Blood Blood specimen / Unknown 12/30/2024 11:01 PM EDT 12/30/2024 11:50 PM EDT us Payton Rosario [employer] LAB BLOOD ORDERABLES Final Re sult [address] [address], [address] [address] * Comprehensive Metabolic Panel (12/30/2024 11:01 PM EDT) Glucose 91 65 - 99 mg/dL 12/31/2024 12:19 AM [facility] Comment:Fasting: <100 mg/dL, Non-Fasting: <200 mg/dL (ADA 2005) Blood Urea Nitrogen (BUN) 19 8 - 21 mg/dL 12/31/2024 12:19 AM [facility] Creatinine 0.8 0.5 - 1.3 mg/dL 12/31/2024 12:19 AM [facility] eGFR >90 >59 12/31/2024 12:19 AM [facility] Comment:CKD-EPI (2020) in mL /min/1.73 sq meters. Sodium 137 136 - 145 mmol/L 12/31/2024 12:19 AM [facility] Potassium 4.4 3.4 - 5.3 mmol/L 12/31/2024 12:19 AM [facility] Chloride 101 98 - 107 mmol/L 12/31/2024 12:19 AM [facility] CO2 26 22 - 33 mmol/L 12/31/2024 12:19 AM [facility] Calcium 9.0 8.7 - 10.5 mg/dL 12/31/2024 12:19 AM [facility] Alkaline Phosphatase 123 45 - 128 U/L 12/31/2024 12:19 AM [facility] Aspartate Aminotrans (AST) 23 10 - 55 U/L 12/31/2024 12:19 AM [facility] Alanine Aminotrans (ALT) 18 10 - 55 U/L 12/31/2024 12:19 AM [facility] Bilirubin, Total 0.3 0.2 - 1.0 mg/dL 12/31/2024 12:19 AM [facility] Protein, Total 7.4 6.3 - 8.3 g/dL 12/31/2024 12:19 AM [facility] Albumin 3.9 3.4 - 4.8 g/dL 12/31/2024 12:19 AM [facility] BUN/Creatinine Ratio 24 10.0 - 25.0 Ratio 12/31/2024 12:19 AM [facility] Globulin 3.5 1.5 - 3.9 g/dL 12/31/2024 12:19 AM [facility] Albumin/Globulin Ratio 1.1 1.0 - 3.0 Ratio 12/31/2024 12:19 AM [facility] Anion Gap 10 7 - 17 12/31/2024 12:19 AM [facility] Blood Blood specimen / Unknown 12/30/2024 11:01 PM EDT 12/30/2024 11:50 PM EDT Payton Rosario [employer] LAB BLOOD ORDERABLES Final Re sult [address] [address], [address] [address] from Last 3 Months Insurance [employer] MEDICARE Advance Directives * Full Code (Latest Code Status on File) Date Activated Date Inactivated Comments 12/31/2024 12:31 AM Question Answer Comments Decision Thoroughly Discussed with: Patient Care Teams Biology Laboratory Assistant Relationship Specialty Start Date End Date Unknown Unknow Provider Address PCP - General 12/30/24
--- OUTSIDE RECORDS SUMMARY | 2025-02-05 14:42 | XMS_ITS | Clinical Summary ---
Author Organization [facility] Address [address] [place] [address] Phone Care Team Providers Care Learning And Development Intern Name Role Phone Pauline Dc MD Primary Care Provider [phone] Allergies Active Allergy Reactions Criticality Noted Date [...] file Insurance MEDICARE PART A & B [id number] [place] [address] MEDICARE REPLACEMENT MEDICARE PART A & B [facility] MEDICARE REPLACEMENT MEDICARE PART A & B [facility] MEDICARE REPLACEMENT MEDICARE PART A & B [facility] MEDICARE REPLACEMENT MEDICARE PART A & B [facility] MEDICARE REPLACEMENT MEDICARE PART A & B Member Subscriber Plan / Payer (Ef fective 2013-Present) Name:Srini Gant Member ID:[id number] Relation to Subscriber:Self Name:Srini Gant Subscriber ID:[id number] Payer ID:[id number] Group ID:Not on file Type:Medicare Address: [facility] [address] [place] [id number] [place] [address] MEDICARE REPLACEMENT MEDICARE PART A & B [facility] MEDICARE REPLACEMENT MEDICARE PART A & B [facility] MEDICARE REPLACEMENT MEDICARE PART A & B [facility] MEDICARE REPLACEMENT Care Teams Learning And Development Intern Relationship Specialty Start Date End Date Pauline Dc MD [facility] [place] [address] PCP - General Internal Medicine 02/20/24 Additional Source Comments The information contained in this document represents components of the legal health record. It is not the complete legal health record.[facility]
--- OUTSIDE RECORDS SUMMARY | 2025-02-05 14:43 | XMS_ITS | Encounter Summary ---
Author Organization [facility] Address [address] [place] [address] Phone Care Team Providers Care Lvn Home Health Name Role Phone Pauline Dc MD Primary Care Provider [phone] Encounter Details Date Type Department Care Team (Late st Contact Info) Description 02/20/2024 Procedure Pass [facility], Ct Scan - [address] [address] Social History Tobacco Use Types Packs/Day Years [...] 8:52 AM EDT Temitope Moreland RN * [place] Suicide Severity Rating Scale (Screener/Recent Self-Report) Question [...] on filedocumented in this encounter Care Teams L[facility] Home Health Relationship Specialty Start Date End Date Pauline Dc MD [address] [facility] [place] [address] PCP - General Internal Medicine 02/20/24 documented as of this encounter Additional Source Comments The information contained in this document represents components of the legal health record. It is not the complete legal health record.[facility]
[2025-02-05 14:48] LABS: NT Pro B Type Natriuretic Pept 55.5 pg/mL (<300)
[2025-02-05] MEDS: iohexoL 350 MG/ML 100 ML INFUS..BTL IV (15:18)
[2025-02-05 15:46] VITALS: PULSE 71; RESP 20; O2SAT 100
[2025-02-05] MEDS: diazePAM 10 MG/2 ML CARTRIDGE 5 MG IVPUSH ×2 (15:48→18:01)
--- NOTE | 2025-02-05 16:25 | ED_ITS ---
HPI - General Adult General Chief complaint: Dyspnea Stated complaint: SOB Time Seen by Provider: 02/05/25 13:38 Source: patient Mode of arrival: ambulatory Limitations: no limitations History of Present Illness ED Provider: Arley Bernardo HPI narrative: [age] year male history of COPD, pneumothorax, GERD, and anxiety presents to the ED for left-sided chest pain with upper abdominal pain with pleurisy. Patient presents to the ED because he was concerned having another pneumothorax. Patient denies any trauma URI symptom Related Data Home Medications ?Medication ?Instructions ?Recorded ?Confirmed methadone 10 mg tablet 105 mg PO DAILY 02/05/25 omeprazole 20 mg capsule,delayed 20 mg PO DAILY@0630 0 02/05/25 02/05/25 release Previous Rx's ?Medication ?Instructions ?Recorded Trelegy Ellipta 100 mcg-62.5 1 inh inhalation DAILY CO PD, 01/10/25 mcg-25 mcg powder for inhalation SEVERE 30 days #60 ea ([id number]) albuterol sulfate 90 mcg/actuation 2 puff inhalation Q 6H PRN 01/10/25 aerosol inhaler shortness of breath or wheez ing #8.5 grams Allergies Allergy/AdvReac Type Severity Reaction Status Date / Time Penicillins Allergy Rash Verified 02/05/25 09:37 Review of Systems 2 Review of Systems: Left-sided chest pain, pleurisy left upper quadrant Yes all other systems are reviewed and are negative PMFSH Past Medical History Medical History (Updated 02/05/25 @ 21:13 by CANDY Lemos) Hydropneumothorax Lumbar disc disease History of basal cell carcinoma (BCC) GERD (gastroesophageal reflux disease) Anxiety and depression Nicotine dependence, cigarettes, uncomplicated Hx of fracture of leg Surgical History History of colonoscopy History of basal cell carcinoma (BCC) excision History of back surgery Family History Family History Father No problems noted. Mother Heart attack Brother Throat cancer Brother Substance use disorder Social History Social History Household Members Other:: lives with brother,disability for lumbar DJD, , 2 adult daughters Housing: House Alcohol intake: former Year quit: 2008 Patient Tobacco Use Status: Current everyday Tobacco user Tobacco use type: Cigarette Cigarette Packs Per Day: 1 Cigarettes Per Day: 20 Years Smoked: onset 15yo, 1ppd x 48yrs, 45pyh Smoked in Last 30 Days: Yes e-Cigarette/Vaping Use: Never Used Use of substances other than those prescribed or required for medical reasons: No Advance Directives: No Advance Directives Information Provided: Yes service: No Current occupational status: unemployed Cognitive needs: No Hearing needs: No Vision needs: Yes Physical Exam ED Vital Signs: Vital Signs - 24 hr 02/05/25 09:32 02/05/25 13:45 02/05/25 15:46 Temperature 97.8 F Pulse Rate 77 95 71 Respiratory Rate 16 16 20 Blood Pressure 130/81 130/83 Pulse Oximetry 99 94 100 Oxygen Delivery Method Room Air Room Air Room Air 02/05/25 18:00 02/05/25 20:16 Temperature 97.7 F Pulse Rate 69 72 Respiratory Rate 16 Blood Pressure 141/79 H 126/81 Pulse Oximetry 97 Oxygen Delivery Method Room Air BMI result Body Mass Index 23.2 Const General: cooperative, healthy appearing, comfortable, no acute distress, well developed, alert, awake and Physically active Orientation/consciousness: patient oriented x3 HENMT Head: Yes normal to inspection, Yes No palpable skull fracture present, Yes normocephalic and Yes atraumatic Eyes General: appearance normal, both eyes and all related structures Neck Neck: Yes normal visual inspection, Yes full ROM, Yes no lymphadenopathy, Yes no meningeal signs, Yes trachea midline, Yes supple, No anterior neck swelling and No tender Chest Chest palpation & inspection: normal inspection of the chest Chest/axillae images: 2 1. Positive for tenderness on palpation Resp Effort & Inspection: normal respiratory effort and able to speak in complete sentences Auscultation: clear to auscultation bilaterally Cardio Jugular venous distension: no JVD Heart sounds: S1 normal heart sound present and S2 normal heart sound present GI Inspection: Yes normal to inspection Palpation (GI): Soft to palpation, not firm, nontender, no guarding and not rigid General: Yes no CVA tenderness Back/Spine/Pelvis Back: no CVA tenderness and No back tenderness Skin General skin exam: no rashes or lesions noted, elasticity normal and turgor normal Neuro General: patient oriented x3, gait normal, tone normal, moves all extremities, Normal light touch and pain sensation, no meningeal signs, no focal motor deficits, CN's II-XI intact bilaterally and normal sensation to monofilament Extrem General: Yes normal to inspection, Yes full ROM and Yes capillary refill normal Psych Appearance: grossly normal, well kempt and not disheveled Medications Administered Discontinued Medications Generic Name Dose Route Start Last Admin Trade Name Paq PRN Reason Stop Dose Admin Acetaminophen 650 mg 02/05/25 14:38 02/05/25 14:43 Acetaminophen 325 Mg Tablet PO 02/05/25 14:39 650 mg ONCE ONE Administration Diazepam 5 mg 02/05/25 15:38 02/05/25 15:48 Diazepam 10 Mg/2 Ml Cartridge IVPUSH 02/05/25 15:39 5 mg STAT STA Administration Diazepam 5 mg 02/05/25 17:53 02/05/25 18:01 Diazepam 10 Mg/2 Ml Cartridge IVPUSH 02/05/25 17:54 5 mg STAT STA Administration Iohexol 100 ml 02/05/25 15:18 02/05/25 15:18 Iohexol 350 Mg/Ml 100 Ml Infus..Btl IV 02/05/25 15:19 85 ml ONCE ONE Administration Medical Decision Making Medical Decision Making MDM Narrative: 64 year your male history of COPD, diverticulitis, GERD, pneumothorax presents to ED for left-sided pleurisy, chest pain, and left upper quadrant pain. Initial labs EKG reassuring chest x-ray states possible pneumonia versus mass. Patient is sent for a chest CTA and abdominal CT scan. Patient given Valium due to anxiety not able to stay on the CAT scan. Signed out to CANDY VERGARA Differential Diagnosis Differential Diagnoses: The differential diagnosis associated with the presentation includes (Pneumo thorax, MD, PE) Admission/Observation Consideration of admission/observation: Escalation of care including admission/observation considered Lab Data 02/05/25 09:44 02/05/25 09:44 Labs: Lab Results 02/05/25 02/05/25 Range/Units 09:44 16:46 WBC 12.5 H (4.8-10.8) X10*3/uL RBC 4.67 (4.60-5.80) X10*6/uL Hgb 13.4 L (14.0-18.0) g/dl Hct 40.5 L (42.0-52.0) % MCV 86.7 (80.0-98.0) fL MCH 28.7 (27.0-33.0) pg MCHC 33.1 (31.0-36.0) g/dl RDW 14.2 (11.0-16.0) % Plt Count 271 (160-400) X10*3/uL MPV 8.8 L (9.4-12.4) fL Immature Gran % (Auto) 0.5 H (0.0-0.4) % Neut % (Auto) 64.3 (45-73) % Lymph % (Auto) 23.0 (20-40) % [place] % (Auto) 6.5 (2-11) % Eos % (Auto) 4.7 H (0-4) % Baso % (Auto) 1.0 (0-2) % Lymph # (Auto) 2.9 (1.2-4.9) X10*3/uL [place] # (Auto) 0.8 (0.1-1.2) X10*3/uL Eos # (Auto) 0.6 H (0.0-0.4) X10*3/uL Baso # (Auto) 0.1 (0.0-0.2) X10*3/uL Abs Immat Gran (auto) 0.06 H (0.00-0.03) X10*3/uL Absolute Neuts (auto) 8.0 (2.0-8.3) x10*3/uL Absolute Nucleated RBC 0.000 (0.0-0.012) X10*3/uL Nucleated RBC % (auto) 0.0 (0.0-0.2) /100WBC Sodium 135 (135-145) mmol/L Potassium 4.8 (3.3-5.1) mmol/L Chloride 100 (96-108) mmol/L Carbon Dioxide 28 (22-29) mmol/L Anion Gap 12 (12-20) BUN 13 (9-16) mg/dL Creatinine 0.83 (0.5-1.4) mg/dL Estim Creat Clear Calc 84.0 Estimated GFR > 60 Random Glucose 94 (60-115) mg/dL Calcium 9.5 (8.4-10.2) mg/dL Total Bilirubin 0.2 (0.0-1.0) mg/dL AST 22 (5-37) U/L ALT 21 (0-40) U/L Alkaline Phosphatase 153 H (39-117) U/L Troponin I High Sens < 2.7 < 2.7 (<3.5-35.0) ng/L NT-Pro-B Natriuret Pep 55.5 (<300) pg/mL Total Protein 7.7 (6.5-8.0) g/dL Albumin 4.0 (3.5-5.0) g/dL COVID-19 (TITO) Negative (Negative) COVID-19 Clin Com See Note Influenza Type A (JOHN) Negative (Negative) Influenza Type B (JOHN) Negative (Negative) Influenza A & B Note See Note Independent Interpretation I performed an independent interpretation of an: EKG (Negative STEMI) and CT Scan Radiology Impression Discussion of test interpretation with radiology: I have reviewed the radiologist's reading. Independent Historian Clinical information obtained from an independent historian. History obtained from or confirmed by: Other (patient) Discharge Plan Discharge Clinical Impression: Dilated cbd, acquired Patient Disposition: Admitted As Inpatient
[2025-02-05 17:11] LABS: Troponin-I High Sensitivity < 2.7 ng/L (<3.5-35.0)
[2025-02-05 18:00] VITALS: BP 141/79; PULSE 69
[2025-02-05 20:16] VITALS: BP 126/81; PULSE 72; RESP 16; TEMP 36.5; O2SAT 97
--- NOTE | 2025-02-05 20:57 | P.HPHOSP_ITS ---
History of Present Illness Date of Service: 02/05/25 Attending physician on admission: Violetta Duke Chief Complaint: Abdominal pain Srini Gant is a 64 years old man with a past medical history significant for COPD, anxiety, depression and residual hydropneumothorax who presents to the emergency department complaining of worsening upper abdominal pain over the last couple of months. He described the pain as colicky in nature that increased with food ingestion. He denied any associated nausea, vomiting, fever or chills. He also reports some chest discomfort and shortness on breath. Abdominal surgery history is remarkable for lumbar back surgery/abdominal approached. He is a active tobacco smoker, 1 pack per day since teenager. 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 Two weeks ago he was admitted at [facility] after he was found to have a collapsed lung and has been scheduled for bronchoscopy on . In the ED, he was found to have normal vital signs. Blood workup showed leukocytosis of 12.5. Hemoglobin is 13.4 and platelets 271. There are no electrolyte imbalances. LFTs showed normal transaminases and total bilirubin; alk-phos is elevated 153 (chronically elevated). Troponin is negative x2 and pro BNP is 55.5. Abdominal pelvis CT scan with IV contrast showed no acute finding; it did showed interval worsening of diffuse marked dilatation of the CBD measuring 1.6 cm, mild central intrahepatic ductal dilatation, moderate mucosal thickening of the ampulla/2nd part of the duodenum. Chest CTA showed no PE or acute aortic syndrome. There interval increased in left lower lobe superior segment consolidation, concerning for pneumonia. ED tx: Acetaminophen 650 mg p.o., diazepam 10 mg IV total Review of Systems 2 Review of Systems: All 12 systems were reviewed and normal except as noted in HPI. [facility] Medical History (Updated 02/06/25 @ 05:52 by Violetta Duke MD) Hydropneumothorax Lumbar disc disease History of basal cell carcinoma (BCC) GERD (gastroesophageal reflux disease) Anxiety and depression Nicotine dependence, cigarettes, uncomplicated Hx of fracture of leg Family History Father No problems noted. Mother Heart attack Brother Throat cancer Brother Substance use disorder Surgical History History of colonoscopy History of basal cell carcinoma (BCC) excision History of back surgery Social History Household Members Other:: lives with brother,disability for lumbar DJD, , 2 adult daughters Housing: House Alcohol intake: former Year quit: 2008 Patient Tobacco Use Status: Current everyday Tobacco user Tobacco use type: Cigarette Cigarette Packs Per Day: 1 Cigarettes Per Day: 20 Years Smoked: onset 15yo, 1ppd x 48yrs, 45pyh Smoked in Last 30 Days: Yes e-Cigarette/Vaping Use: Never Used Use of substances other than those prescribed or required for medical reasons: No Advance Directives: No Advance Directives Information Provided: Yes service: No Current occupational status: unemployed Cognitive needs: No Hearing needs: No Vision needs: Yes Meds Allergies Allergy/AdvReac Type Severity Reaction Status Date / Time Penicillins Allergy Rash Verified 02/05/25 09:37 Active Medications: Current Medications Sodium Chloride (0.9 % Sodium Chloride Flush 3 Ml Syringe) 3 ml IVFLUSH [facility] Medications ?Medication ?Instructions ?Recorded ?Confirmed ?Last Taken ?Type methadone 10 mg tablet 105 mg PO DAILY 02/05/25 History omeprazole 20 mg capsule,delayed 20 mg PO DAILY@0630 0 02/05/25 02/05/25 02/05/25 History release Physical Exam 2 Vital Signs and Narrative: Vital Signs: Last Vital Signs Temp 97.7 F 02/05/25 20:16 Pulse 72 02/05/25 20:16 Resp 16 02/05/25 20:16 BP 126/81 02/05/25 20:16 Pulse Ox 97 02/05/25 20:16 O2 Del Method Room Air 02/05/25 20:16 BMI result Body Mass Index 23.2 Constitutional - Awake and Alert, No apparent distress HEENT - PER, EOMI. No jaundice Heart - RRR, no murmurs Lungs - Normal lung expansion, Normal respiratory effort, No respiratory distress, CTA bilaterally Abdomen - Nondistended, non tenderness. Normal bowel sounds. Infraumbilical surgical scar noted. Extremities - no calf tenderness bilaterally, no swelling Musculoskeletal - Normal inspection, normal ROM Skin - Warm/Dry Neurological - Alert & oriented x3. Moving all extremities spontaneously. Normal speech. Psychological - depressed affect Results Labs 02/05/25 09:44 02/05/25 09:44 Labs: Laboratory Results - last 24 hr 02/05/25 02/05/25 09:44 16:46 MCV 86.7 MCH 28.7 MCHC 33.1 RDW 14.2 Plt Count 271 MPV 8.8 L Immature Gran % (Auto) 0.5 H Neut % (Auto) 64.3 Lymph % (Auto) 23.0 [place] % (Auto) 6.5 Eos % (Auto) 4.7 H Baso % (Auto) 1.0 Lymph # (Auto) 2.9 [place] # (Auto) 0.8 Eos # (Auto) 0.6 H Baso # (Auto) 0.1 Abs Immat Gran (auto) 0.06 H Absolute Neuts (auto) 8.0 Absolute Nucleated RBC 0.000 Nucleated RBC % (auto) 0.0 Anion Gap 12 Estim Creat Clear Calc 84.0 Estimated GFR > 60 Random Glucose 94 Calcium 9.5 Total Bilirubin 0.2 AST 22 ALT 21 Alkaline Phosphatase 153 H Troponin I High Sens < 2.7 < 2.7 NT-Pro-B Natriuret Pep 55.5 Total Protein 7.7 Albumin 4.0 COVID-19 (TITO) Negative COVID-19 Clin Com See Note Influenza Type A (JOHN) Negative Influenza Type B (JOHN) Negative Influenza A & B Note See Note Imaging Radiologist's Impressions: Impressions Chest X-Ray 02/05/25 09:40 IMPRESSION: COPD. Airspace opacity in the left midlung zone extending to the hilum. A mass is not excluded. Small left pleural effusion. Electronically signed by: Shen Harris MD 02/05/2025 09:56 AM EDT RP Assessment and Plan (1) Dilated cbd, acquired: Status: Acute (2) Left lower lobe pulmonary infiltrate: Status: Acute Plan Srini Gant is a 64 y/o man who presents to the ED with: Upper abdominal pain + CBD dilatation; normal LFTs (Alk-phos chronically elevated). NPO after midnight. IV fluids. Dilaudid IV as needed. Check lipase. Per ED, case d/w Dr. Armstrong who recommended admission for MRCP and possibly ERCP. Recheck LFTs in the morning. Left lower lobe superior segment consolidation concerning for pneumonia; p ossible residual from recent. No acute SOB, cough or fever. Will check procalcitonin and consider empiric IV antibiotic therapy. COPD. No home oxygen. No acute symptoms. Lungs clear. Continue Trelegy. DuoNeb p.r.n.. History of depression and anxiety. No home meds. Tobacco dependence. Tobacco cessation education. 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 Treated with Levaquin 750 mg p.o. x 10 days. Subsequently, he developed left hydropneumothorax requiring left chest tube placement and was transferred to [facility] for thoracic surgery evaluation. The chest tube was removed prior to discharge home. Patient follows up with Dr. Goddard as an outpatient. A bronchoscopy has been planned but the patient ate prior to the procedure; he has a follow-up appointment this Thrusday. Code status: Full DVT prophylaxis: SCDs only (possible ERCP). Patient will need hospitalization for at least 2 midnights for upper abdominal pain and CBD dilatation treatment with IV pain meds and evaluation by subspecialty for possible procedure. This note is constructed using voice recognition software. While every effort has been made to ensure accuracy, ambulette driver errors may have been included. Quality Stroke Does the patient have a stroke diagnosis?: No VTE Prior VTE?: No VTE Risk Level:: Medical - moderate - high VTE Device Contraindication: N/A - Device Ordered VTE Drug Contraindication: Treatment Not Indicated
--- NOTE | 2025-02-05 21:03 | PHA.MEDREC ---
Addendum entered by Rashid Hooper RPh 02/05/25 21:07: Med rec reviewed Original Note: Pharmacy Consult ? Medication Reconciliation Pharmacy has completed the medication reconciliation. Patient confirm Methadone 105 mg daily from [facility] in [place] [phone], last dose was today.
[2025-02-05] MEDS: Lactated Ringers 1,000 ML 80 ML IVCONT (21:42)
[2025-02-05 21:44] LABS: Lipase 10 U/L (8-78)
[2025-02-05 22:09] LABS: Procalcitonin 0.03 ng/mL
[2025-02-06 00:03] VITALS: BP 105/66; PULSE 84; RESP 14; TEMP 37.6; O2SAT 96
[2025-02-06 04:18] VITALS: BP 107/66; PULSE 81; RESP 15; TEMP 36.5; O2SAT 94
[2025-02-06 04:38] LABS: Appearance Urine Clear; Glucose Urine UA Negative (Negative); PH 6.0 (5.0-9.0); Specific Gravity - Urine >= 1.030 (1.005-1.025)
--- NOTE | 2025-02-06 04:39 | PC.NURSE ---
pt presents to ED for upper abd pain. ADMIT: upper abdominal pain and CBD dilatation. MCPR today, NPO. hx COPD, L possible LLL PNA. collapsed L lung 2 weeks ago- seen at [facility]. VSS. 94% RA. 20g RAC. LR infusing 80mls/hr. pt A/O x4, calm and cooperative with care, ambulates independently. GI consult. smokes 1pack/day, on methadone.
[2025-02-06 06:28] VITALS: BP 116/87; PULSE 96; RESP 16; TEMP 36.5; O2SAT 93
[2025-02-06 07:05] LABS: MANUAL DIFF FLAG NO
[2025-02-06 07:14] LABS: Hematocrit 42.1 % (42.0-52.0); Hemoglobin 13.8 g/dl (14.0-18.0); Imm Gran Abs Auto 0.03 X10*3/uL (0.00-0.03); Imm Gran Pct Auto 0.3 % (0.0-0.4); Lymphocytes Absolute Auto 3.2 X10*3/uL (1.2-4.9); Mean Corpuscular HGB Conc 32.8 g/dl (31.0-36.0); Mean Corpuscular Hemoglobin 28.0 pg (27.0-33.0); Mean Corpuscular Volume 85.4 fL (80.0-98.0); NRBC Abs Auto 0.000 X10*3/uL (0.0-0.012); NRBC Pct Auto 0.0 /100WBC (0.0-0.2); Platelet Count 265 X10*3/uL (160-400); Red Blood Count 4.93 X10*6/uL (4.60-5.80); White Blood Count 11.3 X10*3/uL (4.8-10.8)
--- NOTE | 2025-02-06 07:22 | HE.PHANOTE ---
re methadone dose verification: pt last dose 105 mg given at [facility]. last dose given 01/31 with 6 take home doses given on that date.
[2025-02-06 07:28] LABS: Alanine Aminotransferase 18 U/L (0-40); Albumin Level 3.8 g/dL (3.5-5.0); Alkaline Phosphatase 151 U/L (39-117); Anion Gap 12 (12-20); Aspartate Amino Transferase 22 U/L (5-37); Blood Urea Nitrogen 14 mg/dL (9-16); Calcium 9.2 mg/dL (8.4-10.2); Carbon Dioxide 30 mmol/L (22-29); Chloride 101 mmol/L (96-108); Creatinine Clr Calc Pharmacy 83.0; Estimated Glomerular Filt Rate > 60; Potassium 4.4 mmol/L (3.3-5.1); Sodium 139 mmol/L (135-145); Total Protein 7.4 g/dL (6.5-8.0)
[2025-02-06] MEDS: methADONE HCl 20 MG/2 ML ORAL.CONC 105 MG PO (07:38)
--- NOTE | 2025-02-06 08:37 | HO.PM.IMPN ---
Subjective Subjective Date of Service: 02/06/25 Physical Exam Vital Signs: Vital Signs: Last Vital Signs Temp 97.7 F 02/06/25 06:28 Pulse 96 02/06/25 06:28 Resp 16 02/06/25 06:28 BP 116/87 02/06/25 06:28 Pulse Ox 93 02/06/25 06:28 O2 Del Method Room Air 02/06/25 06:28 BMI result Body Mass Index 23.2 Objective Data Active Medications Albuterol/Ipratropium (Albuterol/Iprat 2.5/0.5mg 3 Ml Ampul.Neb) 3 ml INHALE RQ4H WHILE AWAKE PRN PRN Reason: Wheezing Diazepam (Diazepam 10 Mg/2 Ml Cartridge) 5 mg IVPUSH ONCE PRN PRN Reason: prior to MRCP Fluticasone/Umeclidinium/Vilanterol (Fluticasone/Umeclidinium/Vilanterol 100/62.5/25 Blst.W.Dev) 1 puff INHALE RDAILY [facility] Hydromorphone HCl (Hydromorphone Hcl 0.5 Mg/0.5 Ml Syringe) 0.5 mg IVPUSH Q4H PRN; Protocol PRN Reason: abdominal pain Lactated Ringer's (Lr) 1,000 mls @ 80 mls/hr IVCONT .[id number] [facility] Stop: 02/06/25 09:59 Last Admin: 02/05/25 21:42 Dose: 80 mls/hr Documented By: CHIKIS Methadone HCl (Methadone Hcl 20 Mg/2 Ml Oral.Conc) 105 mg PO DAILY@0800 [facility] Last Admin: 02/06/25 07:38 Dose: 105 mg Documented By: LARISA Co-signed By: LYNDSEY Pantoprazole Sodium (Pantoprazole Sodium 40 Mg/10 Ml Vial) 40 mg IVPUSH DAILY@0630 [facility] Last Admin: 02/05/25 21:41 Dose: 40 mg Documented By: CHIKIS Sodium Chloride (0.9 % Sodium Chloride Flush 3 Ml Syringe) 3 ml IVFLUSH QSHIFT [facility] Last Admin: 02/06/25 07:41 Dose: Not Given Documented By: LARISA Non-Admin Reason: IV Running Labs 02/06/25 06:37 02/06/25 06:37 Labs: Laboratory Results - last 24 hr 02/05/25 02/05/25 02/06/25 09:44 16:46 04:22 MCV 86.7 MCH 28.7 MCHC 33.1 RDW 14.2 Plt Count 271 MPV 8.8 L Immature Gran % (Auto) 0.5 H Neut % (Auto) 64.3 Lymph % (Auto) 23.0 [place] % (Auto) 6.5 Eos % (Auto) 4.7 H Baso % (Auto) 1.0 Lymph # (Auto) 2.9 [place] # (Auto) 0.8 Eos # (Auto) 0.6 H Baso # (Auto) 0.1 Abs Immat Gran (auto) 0.06 H Absolute Neuts (auto) 8.0 Absolute Nucleated RBC 0.000 Nucleated RBC % (auto) 0.0 Anion Gap 12 Estim Creat Clear Calc 84.0 Estimated GFR > 60 Random Glucose 94 Calcium 9.5 Total Bilirubin 0.2 AST 22 ALT 21 Alkaline Phosphatase 153 H Troponin I High Sens < 2.7 < 2.7 NT-Pro-B Natriuret Pep 55.5 Total Protein 7.7 Albumin 4.0 Lipase 10 Procalcitonin 0.03 Urine Color Yellow Urine Appearance Clear Urine pH 6.0 Ur Specific [place] >= 1.030 H Urine Protein Negative Urine Glucose (UA) Negative Urine Ketones Negative Urine Blood Negative Urine Nitrite Negative Ur Leukocyte Esterase Negative COVID-19 ([facility]) Negative COVID-19 Clin Com See Note Influenza Type A (JOHN) Negative Influenza Type B (JOHN) Negative Influenza A & B Note See Note 02/06/25 06:37 MCV 85.4 MCH 28.0 MCHC 32.8 RDW 14.3 Plt Count 265 MPV 9.0 L Immature Gran % (Auto) 0.3 Neut % (Auto) 58.7 Lymph % (Auto) 28.1 [place] % (Auto) 7.9 Eos % (Auto) 4.2 H Baso % (Auto) 0.8 Lymph # (Auto) 3.2 [place] # (Auto) 0.9 Eos # (Auto) 0.5 H Baso # (Auto) 0.1 Abs Immat Gran (auto) 0.03 Absolute Neuts (auto) 6.6 Absolute Nucleated RBC 0.000 Nucleated RBC % (auto) 0.0 Anion Gap 12 Estim Creat Clear Calc 83.0 Estimated GFR > 60 Random Glucose 87 Calcium 9.2 Total Bilirubin 0.5 AST 22 ALT 18 Alkaline Phosphatase 151 H Troponin I High Sens NT-Pro-B Natriuret Pep Total Protein 7.4 Albumin 3.8 Lipase Procalcitonin Urine Color Urine Appearance Urine pH Ur Specific [place] Urine Protein Urine Glucose (UA) Urine Ketones Urine Blood Urine Nitrite Ur Leukocyte Esterase COVID-19 ([facility]) COVID-19 Clin Com Influenza Type A (JOHN) Influenza Type B (JOHN) Influenza A & B Note Quality Stroke Does the patient have a stroke diagnosis?: No VTE Prior VTE?: No VTE Risk Level:: Medical - moderate - high VTE Device Contraindication: N/A - Device Ordered VTE Drug Contraindication: Treatment Not Indicated
--- NOTE | 2025-02-06 08:42 | PM.GICN ---
History of Present Illness Data of Consult Service Date: 02/06/25 Primary Care Provider: Pauline Dc MD [facility] Reason for consult: dilated CBD 64 years old man with a hx of COPD, anxiety, depression and residual hydropneumothorax who I am seeing for dilated CBD on imaging and abdominal pain. He initially presented to the emergency department with c/o colicky upper abdominal pain over the last couple of months worse with food michael spices and greasy foods. He had a bad attack yesterday simialr to prior 6/10 pain without radiaiton and more in the epigastric area. The pain is now gone and he was able to eat PO diet wthout any issues No associated nausea, vomiting, fever or chills. He is also undergoing eval for possible lung ca. He has lifelong smoking history. Two weeks ago he was admitted at [facility] after he was found to have a collapsed lung and has been scheduled for bronchoscopy. right now he wants to go home as his brother is sick and has to tend to him, IMAGING: CT scans:interval worsening of diffuse marked dilatation of the CBD measuring 1.6 cm, mild central intrahepatic ductal dilatation, moderate mucosal thickening of the ampulla/2nd part of the duodenum. Chest CTA showed no PE or acute aortic syndrome. There interval increased in left lower lobe superior segment consolidation, concerning for pneumonia. LABS: Leukocytosis of 12.5. Hemoglobin is 13.4 and platelets 271. There are no electrolyte imbalances. LFTs showed normal transaminases and total bilirubin; alk-phos is elevated 153 (chronically elevated). Troponin is negative x2 and pro BNP is 55.5 He had an MRCP personally reviewed, dilated CBD but no filling defects. [facility] Past Medical History Medical History Hydropneumothorax Lumbar disc disease History of basal cell carcinoma (BCC) GERD (gastroesophageal reflux disease) Anxiety and depression Nicotine dependence, cigarettes, uncomplicated Hx of fracture of leg Family History Family History Father No problems noted. Mother Heart attack Brother Throat cancer Brother Substance use disorder Surgical History Surgical History History of colonoscopy History of basal cell carcinoma (BCC) excision History of back surgery Social History Social History Household Members: None Household Members Other:: lives with brother,disability for lumbar DJD, , 2 adult daughters Housing: House Do you presently have visiting nurse or other home services: No Alcohol intake: former Year quit: 2008 Patient Tobacco Use Status: Never used Tobacco Tobacco use type: Cigarette Cigarette Packs Per Day: 1.5 Cigarettes Per Day: 30.0 Years Smoked: onset 15yo, 1ppd x 48yrs, 45pyh e-Cigarette/Vaping Use: Never Used Second Hand Smoke Exposure: No service: No Current occupational status: unemployed Cognitive needs: No Hearing needs: No Vision needs: Yes Meds Allergies Allergy/AdvReac Type Severity Reaction Status Date / Time Penicillins Allergy Rash Verified 02/05/25 09:37 Active Medications: Current Medications Albuterol/Ipratropium (Albuterol/Iprat 2.5/0.5mg 3 Ml Ampul.Neb) 3 ml INHALE RQ4H WHILE AWAKE PRN PRN Reason: Wheezing Diazepam (Diazepam 10 Mg/2 Ml Cartridge) 5 mg IVPUSH ONCE PRN PRN Reason: prior to MRCP Fluticasone/Umeclidinium/Vilanterol (Fluticasone/Umeclidinium/Vilanterol 100/62.5/25 Blst.W.Dev) 1 puff INHALE RDAILY [facility] Hydromorphone HCl (Hydromorphone Hcl 0.5 Mg/0.5 Ml Syringe) 0.5 mg IVPUSH Q4H PRN; Protocol PRN Reason: abdominal pain Lactated Ringer's (Lr) 1,000 mls @ 80 mls/hr IVCONT .[id number] [facility] Stop: 02/06/25 09:59 Last Admin: 02/05/25 21:42 Dose: 80 mls/hr Methadone HCl (Methadone Hcl 20 Mg/2 Ml Oral.Conc) 105 mg PO DAILY@0800 [facility] Last Admin: 02/06/25 07:38 Dose: 105 mg Pantoprazole Sodium (Pantoprazole Sodium 40 Mg/10 Ml Vial) 40 mg IVPUSH DAILY@0630 [facility] Last Admin: 02/05/25 21:41 Dose: 40 mg Sodium Chloride (0.9 % Sodium Chloride Flush 3 Ml Syringe) 3 ml IVFLUSH QSHIFT [facility] Last Admin: 02/06/25 07:41 Dose: Not Given Home Medications ?Medication ?Instructions ?Recorded ?Confirmed ?Last Taken ?Type methadone 10 mg tablet 105 mg PO DAILY 02/05/25 02/06/25 02/05/25 History omeprazole 20 mg capsule,delayed 20 mg PO DAILY@0630 02/05/25 02/05/25 02/05/25 History release Physical Exam Exam: Exam: EXAM: GENERAL: The patient is well developed and nontoxic. VITAL SIGNS:see workflow HEENT: Nonicteric sclerae, PERRLA, EOMI. Oropharynx clear. Moist mucous membranes. Conjunctivae appear well perfused. No thyroid mass. CHEST: Chest wall is nontender. HEART: Regular rate and rhythm without murmurs. LUNGS: Clear to auscultation bilaterally. ABDOMEN: Soft, positive bowel sounds, nontender, no organomegaly.no flank tenderness SKIN: No rash, no excessive bruising, petechiae, or purpura. NEUROLOGIC: Cranial nerves II-XII intact without motor/sensory deficit. Psych: normal affect Vital Signs: Vital Signs: Last Vital Signs Temp 97.7 F 02/06/25 06:28 Pulse 96 02/06/25 06:28 Resp 16 02/06/25 06:28 BP 116/87 02/06/25 06:28 Pulse Ox 93 02/06/25 06:28 O2 Del Method Room Air 02/06/25 06:28 BMI result Body Mass Index 23.2 Results Labs 02/06/25 06:37 02/06/25 06:37 Labs: Short CBC 02/05/25 02/06/25 Range/Units 09:44 06:37 WBC 12.5 H 11.3 H (4.8-10.8) X10*3/uL Hgb 13.4 L 13.8 L (14.0-18.0) g/dl Hct 40.5 L 42.1 (42.0-52.0) % Plt Count 271 265 (160-400) X10*3/uL BMP 02/05/25 02/06/25 09:44 06:37 Sodium 135 139 Potassium 4.8 4.4 Chloride 100 101 Carbon Dioxide 28 30 H BUN 13 14 Creatinine 0.83 0.84 Calcium 9.5 9.2 Liver Function 02/05/25 02/06/25 Range/Units 09:44 06:37 Total Bilirubin 0.2 0.5 (0.0-1.0) mg/dL AST 22 22 (5-37) U/L ALT 21 18 (0-40) U/L Alkaline Phosphatase 153 H 151 H (39-117) U/L Albumin 4.0 3.8 (3.5-5.0) g/dL Urine 02/06/25 Range/Units 04:22 Urine Color Yellow Urine Appearance Clear Urine pH 6.0 (5.0-9.0) Ur Specific [place] >= 1.030 H (1.005-1.025) Urine Protein Negative (Neg-Trace) mg/dL Urine Glucose (UA) Negative (Negative) mg/dL Imaging MRI - abdomen: Attestation: I personally reviewed and interpreted this imaging study as follows: (dilated cbd, no stones) Assessment and Plan (1) Dilated cbd, acquired: Status: Acute Plan 1/ Dilated CBD ddx: SOD type 2 or biliary sludge, microlithiasis, not seen on MRCP -LFT nml, no evidence of cholangitis, and managed PO ok PLAN: /1 - cont PO but low fat diet, avoid red meat, 2/ can use bentyl 3/ o/p ERCP for futher eval but should come back if worsening pain, jaundice, fever, chills. Procedures Date of Service Date of Service: 02/06/25
[2025-02-06 09:38] VITALS: BP 112/71; PULSE 81; RESP 16; TEMP 36.4; O2SAT 92
[2025-02-06] MEDS: Lactated Ringers 1,000 ML 100 ML IVCONT (09:48)
[2025-02-06] MEDS: Fluticasone/Umeclidinium/Vilanterol 100/62.5/25 BLST.W.DEV 1 PUFF INHALE (09:48)
[2025-02-06] MEDS: diazePAM 10 MG/2 ML CARTRIDGE 5 MG IVPUSH (11:42)
--- NOTE | 2025-02-06 11:45 | PC.NURSE ---
Pt off the floor to MRI with all belongings
--- NOTE | 2025-02-06 14:29 | MHC.CM.PN ---
pt lives alone has a ride home had no prvious services dc plan home n/s
[2025-02-06 15:14] VITALS: BMI 23.2
[2025-02-06 15:41] VITALS: BP 122/78; PULSE 91; RESP 18; TEMP 36.8; O2SAT 96
[2025-02-06] MEDS: Flu Vacc TS2025-26(6mo up)/PF 0.5 ML SYRINGE IM (16:10)
--- NOTE | 2025-02-06 17:06 | PM.DS ---
DS: Providers Provider Date of Service: 02/06/25 Date of admission: 02/05/25 20:49 Date of discharge: 02/06/25 Primary care physician: Pauline Dc MD Consults: 02/05/25 21:20 Consult to Gastroenterology Routine Consulting Provider: Melody Armstrong Reason for consultation: abd pain,CBD dilatation DS: Diagnosis Discharge Diagnosis (1) Dilated cbd, acquired: Status: Acute DS: Summary Hospital Course Hospital Course: Right upper quadrant pain likely CBD dilation likely secondary to biliary sludge versus microlithiasis, no obstruction noted on MRCP, resolved ERCP planned outpatient Patient is a 64-year-old male with PMH notable for COPD awaiting PFTs Op, residual resolving lung abscess, s/p thoracostomy tube placement, current cigarette smoker (2 ppd since 40 years down to 1 ppd now), anxiety, depression with gradually progressive 2 week duration of right upper quadrant abdominal pain and imaging revealed CBD dilation 1.6, with normal LFTs and chronically elevated ALP. Patient underwent MRCP by Dr. Armstrong this a.m. which did not reveal any obstruction. ERCP is planned outpatient by GI doctor has been Dr. Armstrong. Patient tolerated diet and when offered if the patient would like to stay 1 more night, patient said his brother is dying and booster and would like to be discharged so he can attend his brother's needs. Patient is notified about signs and symptoms to watch out for any worsening abdominal pain SOB and returned to the ED if any concerns. For pain, he is being discharged on Bentyl 20 mg Q 8 p.r.n. 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 Per Dr. Goddard: Bronchoscopic examination, with bronchial brushings was planned. Patient on the day of procedure had eaten before coming to the hospital so the procedure was postponed. Then he showed up in the emergency room on 12/30 with chest pain and somewhat increased shortness of breath. He was found to have hydropneumothorax on the left side. Placement of i.e. pigtail catheter was attempted which did not drain much fluid. Hence a large bore chest tube was placed right in the emergency room. And placed to suction. Due to lack of thoracic surgery coverage here at our center, patient was transferred to [facility], where he was watch for 3 days and then the chest tube was removed. He was advised to come for follow-up. He comes today for follow-up , denies any chest pain at this time and his shortness of breath is at baseline, has very little cough which is not productive.. Currently still smoking 1 pack of cigarettes a day Follows Dr. Goddard outpatient for pulmonology we will need to follow-up for bronchoscopy At the time of discharge, patient has been not hypoxic on room air although decreased breath sounds have been heard on the left which is likely his new baseline which needs to have bronchoscopy follow-up by pulmonology. Patient has pulmonary cachexia concerning for underlying pulmonary malignancy Extensive education about smoking cessation has been given Sepsis was deemed less likely given his chronic conditions and completion of Levaquin during prior admission. For all other chronic medical conditions-no new meds This note is constructed using voice recognition software. While every effort has been made to ensure accuracy, instructor dancing errors may have been included. Time spent discussing smoking cessation with patient: more than 10 minutes Status at Discharge Functional status at discharge: independent ambulation Overall status at discharge: patient is progressing back to baseline Time Attestation Discharge Coordination Time (in mins): 35 Quality: Safe Use of Opioids Does Pt have an Active Cancer Diagnosis on the Problem List?: Yes Opioid Measure Date for [facility] Report: 01/07/25 Opioid Measure Time for [facility] Report: 17:18 Quality: Stroke Does the patient have a stroke diagnosis?: No Physical Exam Exam: Exam: General: AOx3, cachectic appearing, muscle wasting Resp: LLL decreased breath sounds, chronic stable (has diagnosis of bronchopleural fistula, concerning for malignancy CVS: S1, S2, RRR GI: +BS, NT, no distention Neuro: Cranial nerves II-XII grossly intact bilaterally. Motor grossly intact bilaterally Psych: Anxious Vital Signs: Vital Signs: Last Vital Signs Temp 98.3 F 02/06/25 15:41 Pulse 91 02/06/25 15:41 Resp 18 02/06/25 15:41 BP 122/78 02/06/25 15:41 Pulse Ox 96 02/06/25 15:41 O2 Del Method Room Air 02/06/25 15:41 BMI result Body Mass Index 23.2 DS: Data Data Completed and Pending Labs on day of discharge: Laboratory Results - last 24 hr 02/05/25 02/05/25 02/06/25 09:44 16:46 04:22 WBC RBC Hgb Hct MCV MCH MCHC RDW Plt Count MPV Immature Gran % (Auto) Neut % (Auto) Lymph % (Auto) [place] % (Auto) Eos % (Auto) Baso % (Auto) Lymph # (Auto) [place] # (Auto) Eos # (Auto) Baso # (Auto) Abs Immat Gran (auto) Absolute Neuts (auto) Absolute Nucleated RBC Nucleated RBC % (auto) Sodium Potassium Chloride Carbon Dioxide Anion Gap BUN Creatinine Estim Creat Clear Calc Estimated GFR Random Glucose Calcium Total Bilirubin AST ALT Alkaline Phosphatase Troponin I High Sens < 2.7 Total Protein Albumin Lipase 10 Procalcitonin 0.03 Urine Color Yellow Urine Appearance Clear Urine pH 6.0 Ur Specific [place] >= 1.030 H Urine Protein Negative Urine Glucose (UA) Negative Urine Ketones Negative Urine Blood Negative Urine Nitrite Negative Ur Leukocyte Esterase Negative 02/06/25 06:37 WBC 11.3 H RBC 4.93 Hgb 13.8 L Hct 42.1 MCV 85.4 MCH 28.0 MCHC 32.8 RDW 14.3 Plt Count 265 MPV 9.0 L Immature Gran % (Auto) 0.3 Neut % (Auto) 58.7 Lymph % (Auto) 28.1 [place] % (Auto) 7.9 Eos % (Auto) 4.2 H Baso % (Auto) 0.8 Lymph # (Auto) 3.2 [place] # (Auto) 0.9 Eos # (Auto) 0.5 H Baso # (Auto) 0.1 Abs Immat Gran (auto) 0.03 Absolute Neuts (auto) 6.6 Absolute Nucleated RBC 0.000 Nucleated RBC % (auto) 0.0 Sodium 139 Potassium 4.4 Chloride 101 Carbon Dioxide 30 H Anion Gap 12 BUN 14 Creatinine 0.84 Estim Creat Clear Calc 83.0 Estimated GFR > 60 Random Glucose 87 Calcium 9.2 Total Bilirubin 0.5 AST 22 ALT 18 Alkaline Phosphatase 151 H Troponin I High Sens Total Protein 7.4 Albumin 3.8 Lipase Procalcitonin Urine Color Urine Appearance Urine pH Ur Specific [place] Urine Protein Urine Glucose (UA) Urine Ketones Urine Blood Urine Nitrite Ur Leukocyte Esterase Discharge Plan Discharge Anticipated Discharge Date/Time: 02/06/25 16:51 Patient Disposition: Home, Self-Care Discharge Diagnosis: Dilated CBD likely 2/2 SOD type 2 or biliary sludge, microlithiasis, not seen on MRCP -LFT nml Referrals: Pauline Dc MD [Primary Care Provider, Internal Medicine] - 1 Week Discharge Medications: New dicyclomine 10 mg capsule 20 mg PO QID PRN (Reason: abdominal pain) Qty: 10 0RF Continued methadone 10 mg Tablet 105 mg PO DAILY omeprazole 20 mg capsule,delayed release(DR/EC) 20 mg PO DAILY@0630 Trelegy Ellipta 100-62.5-25 mcg blister with device 1 inh inhalation DAILY 30 Days Qty: 60 3RF albuterol sulfate 90 mcg/actuation HFA aerosol inhaler 2 puff inhalation Q6H PRN (Reason: shortness of breath or wheezing) Qty: 8.5 3RF Discharge Orders: Discharge Order (Routine); Ordered 02/06/25 Ordered By: Rachelle Leiva Diet: Advance to usual diet Activity on Discharge: As tolerated Stand Alone Forms: Patient Portal Discharge page Print Language: Telugu Care Plan Goals: ERCP outpatient by GI GI follow-up outpatient PCP follow-up within a week after discharge Attending to his dying brother at [place] and would like to get discharged [facility] Patient is aware that he needs to come back if he has any symptoms Patient's LFTs WNL Health Concerns: See above Plan of Treatment: See above Assessment: See above
== END 2025-02-06 17:20 | disposition home or self-care (01) | DRG 444 ==
LOC: HO.ED 14:12 → HO.EDOVER 21:01 → HO.S3 02-06 14:08
PROVIDERS: Physician Assistant; Admitting Provider Internal Medicine; Emergency Provider Emergency Medicine; PCP Internal Medicine; Visit Provider Student in an Organized Health Care Education/Training Program
DX: K83.8 Other specified diseases of biliary tract (principal); J18.9 Pneumonia, unspecified organism; J86.0 Pyothorax with fistula; J44.0 Chronic obstructive pulmonary disease with (acute) lower respiratory infection; F11.20 Opioid dependence, uncomplicated; J94.8 Other specified pleural conditions; C34.92 Malignant neoplasm of unspecified part of left bronchus or lung; F17.210 Nicotine dependence, cigarettes, uncomplicated; Z20.822 Contact with and (suspected) exposure to COVID-19; Z71.6 Tobacco abuse counseling; Z79.899 Other long term (current) drug therapy
CPT/HCPCS: 36415; 70030; 71046; 71275; 74177; 74181; 80053; 81003; 83690; 83880; 84145; 84484; 85025; 87502; 87635; 90656; 99285; J1171; J2470; J3360; J7120; Q9967

== ENCOUNTER 2025-02-05 20:49 | Outpatient (BNV) | payer MEDICARE, SELFPAY | END 2025-02-06 12:00 | PROVIDERS: Admitting Provider Internal Medicine; Emergency Provider Emergency Medicine; PCP Internal Medicine; Visit Provider Radiology Diagnostic Radiology | DX: Z03.823 Encounter for observation for suspected inserted (injected) foreign body ruled out (principal) | CPT/HCPCS: 70030 ==

== ENCOUNTER → 2025-02-05 20:49 | Outpatient (BNV) | payer MEDICARE, SELFPAY | PROVIDERS: Admitting Provider Internal Medicine; Emergency Provider Emergency Medicine; PCP Internal Medicine; Visit Provider Internal Medicine | DX: K83.8 Other specified diseases of biliary tract (principal); R91.8 Other nonspecific abnormal finding of lung field | CPT/HCPCS: 99223; 99239 ==

== ENCOUNTER → 2025-02-05 20:49 | Outpatient (BNV) | payer MEDICARE, SELFPAY | PROVIDERS: Admitting Provider Internal Medicine; Emergency Provider Emergency Medicine; PCP Internal Medicine; Visit Provider Internal Medicine Gastroenterology | DX: K83.8 Other specified diseases of biliary tract (principal) | CPT/HCPCS: 99223 ==

== ENCOUNTER 2025-02-12 13:51 | Outpatient (AMB) | payer MEDICARE, SELFPAY ==
--- NOTE | 2025-02-12 14:04 | A.OFFPC_ITS ---
Vital Signs 02/12/25 14:05 Height 5 ft 7 in Weight 149 lb BMI 23.3 BP 136/80 Blood Pressure Location Lt brachial Position Sitting Respiration 18 Pulse 67 Pulse Source Pulse Oximeter Temp 97.7 F Temp Source Oral Pulse Oximetry (%) 94 Oxygen Delivery Method Room Air Intake Visit Reasons: TCM Intake Note: Pt is here today for TCM. Allergies Penicillins Allergy (Verified 02/12/25 14:45) Rash Medication List - Last Reconciled 02/12/25 by Pauline Dc MD albuterol sulfate 90 mcg/actuation 2 puffs inhalation Q6H PRN dicyclomine 20 mg (2 x 10 mg) PO QID PRN methadone 105 mg PO DAILY omeprazole 20 mg PO DAILY@0630 Trelegy Ellipta 100-62.5-25 mcg (luojchvgnbv-dqaoszgyj-ybluavbu) 1 inh inhalation DAILY 30 days NS Tobacco use date assessed: 02/12/25 Fall risk assessment: No Falls in past year Last assessed Fall Risk: 02/12/25 Dental Screening Dental Screen Date: 07/12/24 HPI TCM HPI Details Pt presents for hospitalized for RUQ abd pain. Pt had MRCP consistent with intra and extrahepatic biliary ductal dilatation secondary to stenosis of the sphincter of Oddi intrinsic lesion can not be excluded. ERCP was scheduled but patient left the hospital. He reports intermittent epigastric discomfort after eating fried or fatty foods but denies nausea or vomiting. He reports chronic constipation and has been trying to increase fluid and fiber intake. Patient follows up with market news reporter and bronchoscopy was recommended to evaluate for left lower lobe consolidation. Patient denies productive cough but reports intermittent wheezing. He has been taking Trelegy with good relief. He has been cutting down on smoking down to 1 pack-a-day TCM TCM Information Date of Discharge 02/07/25 Discharged From [facility] Interactive Contact Date (Reference documentation from this date) 02/08/25 [facility] Medical History Dilated cbd, acquired Hydropneumothorax Lumbar disc disease History of basal cell carcinoma (BCC) GERD (gastroesophageal reflux disease) Anxiety and depression Nicotine dependence, cigarettes, uncomplicated Hx of fracture of leg Surgical History History of colonoscopy History of basal cell carcinoma (BCC) excision History of back surgery Family History Father No problems noted. Mother Heart attack Brother Throat cancer Brother Substance use disorder Social History Household Members: None Household Members Other:: lives with brother,disability for lumbar DJD, , 2 adult daughters Housing: House Do you presently have visiting nurse or other home services: No Alcohol intake: former Year quit: 2008 Patient Tobacco Use Status: Never used Tobacco Tobacco use type: Cigarette Cigarette Packs Per Day: 1.5 Cigarettes Per Day: 30.0 Years Smoked: onset 15yo, 1ppd x 48yrs, 45pyh e-Cigarette/Vaping Use: Never Used Second Hand Smoke Exposure: No service: No Current occupational status: unemployed Cognitive needs: No Hearing needs: No Vision needs: Yes Questionnaire PHQ-9 Over the last 2 weeks, how often have you been bothered by any of the following problems? 1. Little interest or pleasure in doing things: several days 2. Feeling down, depressed, or hopeless: not at all 3. Trouble falling or staying asleep, or sleeping too much: not at all 4. Feeling tired or having little energy: more than half the days 5. Poor appetite or overeating: more than half the days 6. Feeling bad about yourself - or that you are a failure or have let yourself or your family down: not at all 7. Trouble concentrating on things, such as reading the newspaper or watching television: not at all 8. Moving or speaking so slowly that other people could have noticed. Or the opposite - being so fidgety or restless that you have been moving around a lot more than usual: not at all 9. Thoughts that you would be better off or of hurting yourself in some way: not at all Total score: 5 Depression Screening Interpretation: Negative Depression Screening Done: Yes Source: Developed by Drs. Shen Ware, Jonna Guevara, Mac Dial and colleagues, with an educational marito from [employer]. Thrive Questionnaire Date Thrive assessed: 07/12/24 Within the past 12 months, did the food you bought not last and you didn't have the money to get more?: Often true Within the past 12 months, did you worry whether your food would run out before you got money to buy more?: Often true Do you have trouble paying for medicines?: Yes Do you have trouble getting transportation to medical appointments?: Yes Do you have trouble paying your heating and electricity bill?: Yes Do you have trouble taking care of your child, family member or friend?: No Do you have trouble with day-to-day activities such as bathing, preparing meals, shopping, managing finances, etc.?: No Are you currently unemployed and looking for a job?: No Are you interested in more education?: I choose not to answer this question Please select the resources that you would like help with: None Currently or been in a relationship where the following occur: No concerns reported THRIVE Score: 4 AUDIT C Alcohol Use Questionnaire (AUDIT-C) 1. How often do you have a drink containing alcohol?: Never Total Score: 0 NATIVIDAD-7 AMB Questionnaire NATIVIDAD-7 Date NATIVIDAD - 7 assessed: 06/21/23 Feeling nervous, anxious, or on edge: 2 = More than half the days Not being able to stop or control worryin = More than half the days Worrying too much about different things: 1 = Several days Trouble relaxin = Several days Being so restless that it is hard to sit still: 2 = More than half the days Becoming easily annoyed or irritable: 2 = More than half the days Feeling afraid as if something awful might happen: 0 = Not at all Total NATIVIDAD-7 score (0-4 normal; 5-9 mild; 10-14 moderate; 15-21 severe): 10 Source: Developed by Drs. Shen Ware, Jonna Guevara, Mac Dial and colleagues, with an educational marito from [employer]. Review of Systems Const All systems reviewed & are unremarkable except as noted in HPI and below ENT Reports no additional complaints Card Reports no additional complaints Resp Reports no additional complaints GI Reports no additional complaints Reports no additional complaints Physical exam (Primary Care) Vital Signs: Last Vital Signs Temp 97.7 F 02/12/25 14:05 Pulse 67 02/12/25 14:05 Resp 18 02/12/25 14:05 BP 136/80 02/12/25 14:05 Pulse Ox 94 02/12/25 14:05 Oxygen Delivery Method Room Air 02/12/25 14:05 BMI result Body Mass Index 23.3 Tobacco/Smoking Status: Tobacco use Status Tobacco use date assessed 02/12/25 02/12/25 14:49 Patient Tobacco Use Status Never used Tobacco 02/12/25 14:04 Tobacco use type Cigarette 02/12/25 14:04 e-Cigarette/Vaping Use Never Used 02/12/25 14:04 PHQ-9: PHQ-9 Score PHQ-9: Total score 5 02/12/25 14:49 Depression Screening Interpretation: Negative Thrive Assessment: Date of Thrive Assessment Date Thrive assessed 07/12/24 02/12/25 14:04 Currently or been in a relationship where the following occur: No concerns reported Const General: no acute distress HENMT Head: Yes normal to inspection Face and sinus: Yes normal facial exam Eyes General: appearance normal, both eyes and all related structures Resp Effort & Inspection: normal respiratory effort Auscultation: diminished lung sounds Cardio Rhythm: regular rhythm Heart sounds: S1 normal heart sound present and S2 normal heart sound present GI Inspection: Yes normal to inspection Palpation (GI): Soft to palpation and Tenderness to palpation present (GI) in the epigastrum; with no rebound tenderness Percussion: Yes normal to percussion Auscultation: normal bowel sounds Coding Level of Care Code TCM Mod MDM <= 7 Days Diagnoses Abdominal pain R10.9 Dilated cbd, acquired K83.8 Mass of left lung R91.8 COPD (chronic obstructive pulmonary disease) J44.9 Assessment & Plan Assessment & Plan (1) Abdominal pain: Comment: epigastric and LUQ Code(s): R10.9 - Unspecified abdominal pain Category: Medical Plan: For persistent abdominal pain and abnormal findings on the MRCP patient will follow-up with GI for EGD with ERCP and colonoscopy(patient never had screening colonoscopy and has a chronic constipation) (2) Dilated cbd, acquired: Comment: MR MRCP WITHOUT CONTRAST TECHNIQUE: MRCP is performed without gadolinium contrast IMPRESSION: Intrahepatic and extrahepatic biliary ductal dilatation likely secondary to stenosis of the sphincter of Oddi. Intrinsic lesion cannot be excluded. No cholelithiasis or gross choledocholithiasis. Multiseptated loculated left-sided pleural effusion versus cystic lesion left lower hemithorax. Patient: Srini Gant MR#: [id number] : 1960 Acct:[id number] Age/Sex: 64 / M ADM Date: 02/05/25 Loc: [place]: Rachelle Leiva MD Ordering Physician: Violetta Sanchez MD Date of Service: 02/05/25 Procedure(s): MR MRCP Accession Number(s): [id number] cc: Pauline Dc MD; Violetta Sanchez MD~ Reason for Exam: abdominal pain, CBD dilatation EXAMINATION: MR MRCP WITHOUT CONTRAST CLINICAL INFORMATION: Abdominal pain. CBD dilatation. COMPARISON: Correlated to CT dated February 05, 2025. TECHNIQUE: MRCP is performed without gadolinium contrast. Axial and coronal T2 haste sequences. Axial and coronal T2 fat-sat haste sequences. Axial in and out 3-D phase sequences. 3-D space MRCP triggered. MRCP radial T2 fat-sat sequence. Coronal oblique T2 fat-sat single shot FINDINGS: LUNG BASES: There is [heterogeneous septated hyperintense T2 signal abnormality in the left lower lung lobe/left lung base with small volume left-sided pleural effusion. LIVER, GALLBLADDER, AND BILIARY TREE: Liver measures 15 cm. No focal signal abnormality. The flow-void signal within the main vessels is normal. Gallbladder is fluid-filled without distention. There is no pericholecystic fluid collection or gallbladder wall thickening. Common bile duct measures 8 mm in the distal aspect and 13 mm and the proximal aspect just distal to the cystic duct junction. There is mild intrahepatic biliary ductal dilatation. There is a 5 mm isointense T2 signal at the junction with the second portion of the duodenum demonstrated an abrupt cut off/pencil shaped morphology distal common bile duct PANCREAS: The main pancreatic duct measures 2.3 mm. No peripancreatic fluid collections. SPLEEN: 9 cm. Small, 9 mm accessory spleen. ADRENAL GLANDS: Soft tissue fullness without nodular lesions. KIDNEYS AND URETERS: No hydronephrosis. Subcentimeter cyst in the kidneys. GASTROINTESTINAL TRACT: Abundant stool in the large intestine. No intestinal obstruction pattern. ABDOMINAL WALL: Questionable small tiny fat-containing umbilical hernia. LYMPH NODES: No mesenteric or retroperitoneal lymphadenopathy. VASCULAR: No aneurysm or dissection, abdominal aorta. OSSEOUS STRUCTURES: Multilevel thoracolumbar spondylosis, mild. And right-sided perineural cysts at T11-12. Paramagnetic field distortion secondary to metallic hardware at the L5-S1 level. Central spinal canal stenosis at L4-5 and likely L5-S1 on a degenerative basis. MR/MR MRCP IMPRESSION: Intrahepatic and extrahepatic biliary ductal dilatation likely secondary to stenosis of the sphincter of Oddi. Intrinsic lesion cannot be excluded. No cholelithiasis or gross choledocholithiasis. Multiseptated loculated left-sided pleural effusion versus cystic lesion left lower hemithorax. Code(s): K83.8 - Other specified diseases of biliary tract Category: Medical Plan: Follow-up with GI for ERCP (3) Mass of left lung: Comment: Left lower lung consolidation on CT of the chest, established with pulmonology Code(s): R91.8 - Other nonspecific abnormal finding of lung field Category: Medical Plan: Follow-up with pulmonology for bronchoscopy (4) COPD (chronic obstructive pulmonary disease): Comment: THIS GENTLEMAN HAS HISTORY OF SMOKING FOR MORE THAN 40 YEARS. INITIALLY 2 PACKS A DAY AND NOW HAS CUT DOWN TO 1 PACK A DAY. HE HAS CLINICAL FEATURES OF CHRONIC OBSTRUCTIVE PULMONARY DISEASE. THOUGH HE HAS HAD NO PULMONARY FUNCTION TEST. Code(s): J44.9 - Chronic obstructive pulmonary disease, unspecified Category: Medical Plan: Continue Trelegy Orders: Referrals Gastroenterology Referral K83.8 - Other specified diseases of biliary tract, R10.9 - Unspecified abdominal pain Pulmonology Referral R91.8 - Other nonspecific abnormal finding of lung field
[2025-02-12 14:05] VITALS: BP 136/80; PULSE 67; RESP 18; TEMP 36.5; O2SAT 94; BMI 23.3
--- OUTSIDE RECORDS SUMMARY | 2025-02-12 17:06 | XMS_ITS | Clinical Summary ---
Author Organization [facility] Address [address] [place] [address] Phone Care Team Providers Care Purchase Price Analyst Name Role Phone Pauline Dc MD Primary Care Provider [phone] Allergies Active Allergy Reactions Criticality Noted Date [...] file Insurance MEDICARE PART A & B [id number] [place] [address] MEDICARE REPLACEMENT [facility] RE[facility] REPL[facility] MEDICARE [facility] REPLACEMENT MEDICARE [facility]IC[facility] REPLACEMENT MEDICARE PART A & B Member Subscriber Plan / Payer (Ef fective 2013-Present) Name:Srini Gant Member ID:[id number] Relation to Subscriber:Self Name:Srini Gant Subscriber ID:[id number] Payer ID:[id number] Group ID:Not on file Type:Medicare Address: [place] [address] [place] [id number] [place] [address] MEDICARE REPLACEMENT [facility]ICARE [facility] MEDICARE REPLACEMENT MEDICARE [facility] MEDICARE [facility]PLACEMENT MEDICARE [facility] Care Teams Purchase Price Analyst Relationship Specialty Start Date End Date Pauline Dc MD [facility] [place] [address] PCP - General Internal Medicine 02/20/24 Additional Source Comments The information contained in this document represents components of the legal health record. It is not the complete legal health record.[facility]
--- OUTSIDE RECORDS SUMMARY | 2025-02-12 17:06 | XMS_ITS | Clinical Summary ---
Author Organization [facility] Address [address] [place] [address] Care Team Providers Care Latent Print Examiner Name Role Phone Unknown Primary Care Provider [phone] Allergies Active Allergy Reactions Criticality Noted Date [...] Department Care Team Description 01/03/2025 Orders Only [facility] Thoracic Surgery [address] [address] PA-C 12/31/2024 1:05 AM EDT Ancillary Procedure [facility] Radiology [address] [place] [phone] Provider, File Room 12/31/2024 1:00 AM EDT Ancillary Procedure [facility] Radiology [address] [place] [address], [place] [phone] Provider, File Room 12/31/2024 1:00 AM EDT Ancillary Procedure [facility] Radiology [address] [place] [address], [place] [phone] Provider, File Room 12/31/2024 12:55 AM EDT Ancillary Procedure [facility] Radiology [address] [place] [address], [place] [phone] Provider, File Room 12/31/2024 12:55 AM EDT Ancillary Procedure [facility] Radiology [address] [place] [address], [place] [phone] Provider, File Room 12/30/2024 10:33 PM EDT - 01/02/2025 6:30 PM EDT Hospital Encounter [facility] [address] [id number] Shawn Marquez MD Van Backer, Justin T, MD Pneumothorax (Primary Dx); Pneumothorax, unspecified type; OAD (obstructive airway disease) ([facility]); Opioid abuse, continuous ([facility]); Chronic obstructive pulmonary disease, unspecified COPD type ([facility]); Atelectasis; Agitation; Cigarette smoker Discharge Disposition: Home or Self Care 12/30/2024 Orders Only [facility] Radiology [address] [place] [address], [place] [phone] Provider, File Room 12/30/2024 Travel from Last 3 Months Social History Tobacco Use Types Packs/Day Years Used Date Smoking Tobacco: Every Day Cigarettes Smokeless Tobacco: Never Tobacco Cessation:Ready to Q uit: Not Asked; Counseling Given: Not Answered [facility] Utilities Answer Date Recorded In the past 12 months has [facility] electric, gas, oil, or water company threatened [...] any time in the past 12 m [facility], were you homeless or living in a retirement (including now)? No 12/31/2024 Sex and Gender [...] [address] Street PA-C IM [facility]ST[facility] Final Result * (ABNORMAL) Complete Blood Count WITHOUT Differential - Early AM (01/02/2025 6:16 AM EDT) White Blood Cell Count 8.7 4.0 - 11.0 Thou/uL 01/02/2025 7:09 AM [facility] Platelet Count 255 150 - 450 Thou/uL 01/02/2025 7:09 AM [facility] Hemoglobin 12.6(L) 13.0 - 17.7 g/dL 01/02/2025 7:09 AM [facility] Hematocrit 38.8(L) 39.0 - 54.0 % 01/02/2025 7:09 AM [facility] Red Blood Cell Count 4.44(L) 4.50 - 6.20 Mil/uL 01/02/2025 7:09 AM [facility] MCV 87 80 - 100 fL 01/02/2025 7:09 AM [facility] MCH 28.4 27.0 - 31.0 pg 01/02/2025 7:09 AM [facility] MCHC 32.5 30.0 - 36.0 g/dL 01/02/2025 7:09 AM [facility] RDW 14.6(H) 11.5 - 14.5 % 01/02/2025 7:09 AM [facility] MPV 9.0 7.5 - 12.5 fL 01/02/2025 7:09 AM [facility] Blood Blood specimen / Unknown 01/02/2025 6:16 AM EDT 01/02/2025 6:47 AM EDT us Amelia Corona APRN LAB BLOOD ORDERABLES Final Result [facility] [address] [place] [address], [facility] [address] [place] [address] * CT Thorax w/o contrast (12/31/2024 11:10 [...] 12 lead (12/31/2024 6:16 AM EDT) Pathologist [facility] Ventricular rate 64 BPM EKG [facility] Atrial rate [address] [facility] P-R interval 172 ms EKG [facility] QRS duration 96 ms EKG [facility] Q-T interval 422 ms EKG [facility] QTC calculation (Bazett) 436 ms EKG [facility] P axis 62 degrees EKG [facility] R axis 33 degrees EKG [facility] T axis 59 degrees EKG [facility] 12/31/2024 6:16 AM EDT Narrative EKG [facility] - 12/31/2024 9:17 PM EDT Normal sinus rhythm Left atrial enlargement No previous ECGs available Confirmed by MD Yanez Melissa ([id number]) on 12/31/2024 9:17:58 PM Procedure Note Jie Yanez MD - 12/31/2024 Normal sinus rhythm Left atrial enlargement No previous ECGs available Confirmed by MD Yanez Melissa ([id number]) on 12/31/2024 9:17:58 PM us Fiona Chambers STAFF AUDITOR ECG ORDERABLES Final Result EKG [facility] * CR Chest Archive for Reference only (12/31/2024 12:57 AM EDT) Only the most recent of3 resultswithin the time period is included. Narrative KELLER - 12/31/2024 12:57 AM EDT This study has been auto finalized and does not contain a result. us File Room Provider IMG DIGITIZE FILMS Final Resu lt Performing Organization Address [facility] Co de Phone Number SHAVONNE [phone] * CT Chest Archive for Reference Only (12/31/2024 12:57 AM EDT) Only the most recent of2 resultswithin the time period is included. Narrative KELLER - 12/31/2024 12:57 AM EDT This study has been auto finalized and does not contain a result. File Room Provider IMG DIGITIZE FILMS Final Resu lt Performing Organization Address [facility] de Phone Number SHAVONNE [phone] * Type and Screen (12/30/2024 11:40 PM EDT) ABO/Rh O NEGATIVE 12/31/2024 12:48 AM EDT [facility] Antibody Screen NEGATIVE 12/31/2024 12:48 AM EDT [facility] Specimen Expiration 01/02/2025 12/31/2024 12:48 AM EDT [facility] Blood Bank Comment Specimen collected using Sand Mixer 12/31/2024 12:48 AM EDT [facility] Blood Blood specimen / Unknown 12/30/2024 11:40 PM EDT 12/30/2024 11:56 PM EDT Shawn Marquez MD BLOOD BANK TEST ORDERABLES Fi nal Result Performing Organization Address [facility] de Phone Number [address] [address], [address] [address] * (ABNORMAL) Complete Blood Count, with Differential (12/30/2024 11:01 PM EDT) White Blood Cell Count 14.7(H) 4.0 - 11.0 Thou/uL 12/31/2024 12:05 AM [facility] Platelet Count 310 150 - 450 Thou/uL 12/31/2024 12:05 AM [facility] Hemoglobin 13.2 13.0 - 17.7 g/dL 12/31/2024 12:05 AM [facility] Hematocrit 40.7 39.0 - 54.0 % 12/31/2024 12:05 AM [facility] Red Blood Cell Count 4.76 4.50 - 6.20 Mil/uL 12/31/2024 12:05 AM [facility] MCV 86 80 - 100 fL 12/31/2024 12:05 AM [facility] MCH 27.7 27.0 - 31.0 pg 12/31/2024 12:05 AM [facility] MCHC 32.4 30.0 - 36.0 g/dL 12/31/2024 12:05 AM [facility] RDW 14.9(H) 11.5 - 14.5 % 12/31/2024 12:05 AM [facility] MPV 9.1 7.5 - 12.5 fL 12/31/2024 12:05 AM [facility] Neutrophils Auto 65.0 % 01/01/20 12:05 AM [facility] Immature Granulocytes 0.4 % 12/31/2024 12:05 AM [facility] Lymphocytes Auto 23.8 % 01/01/20 12:05 AM [facility] Monocytes Auto 7.4 % 12/31/2024 12:05 AM [facility] Eosinophils Auto 2.7 % 01/01/20 12:05 AM [facility] Basophils Auto 0.7 % 12/31/2024 12:05 AM [facility] Abs Neutrophils Auto 9.54(H) 2.00 - 7.50 Thou/uL 12/31/2024 12:05 AM [facility] Abs Immature Granulocytes 0.06 0.00 - 0.10 Thou/uL 12/31/2024 12:05 AM [facility] Abs Lymphocytes Auto 3.50 1.50 - 4.50 Thou/uL 12/31/2024 12:05 AM [facility] Abs Monocytes Auto 1.08 0.20 - 1.50 Thou/uL 12/31/2024 12:05 AM [facility] Abs Eosinophils Auto 0.40 0.00 - 0.70 Thou/uL 12/31/2024 12:05 AM [facility] Abs Basophils Auto 0.11 0.00 - 0.20 Thou/uL 12/31/2024 12:05 AM [facility] Blood Blood specimen / Unknown 12/30/2024 11:01 PM EDT 12/30/2024 11:50 PM EDT us Payton Rosario STAFF AUDITOR LAB BLOOD ORDERABLES Final Re sult [address] [address], [address] [address] * Comprehensive Metabolic Panel (12/30/2024 11:01 PM EDT) Glucose 91 65 - 99 mg/dL 12/31/2024 12:19 AM [facility] Comment:Fasting: <100 mg/dL, Non-Fasting: <200 mg/dL (ADA 2005) Blood Urea Nitrogen (BUN) 19 8 - 21 mg/dL 12/31/2024 12:19 AM [facility] Creatinine 0.8 0.5 - 1.3 mg/dL 12/31/2024 12:19 AM [facility] eGFR >90 >59 12/31/2024 12:19 AM [facility] Comment:CKD-EPI (2020) in mL /min/1.73 sq meters. Sodium 137 136 - 145 mmol/L 12/31/2024 12:19 AM [facility] Potassium 4.4 3.4 - 5.3 mmol/L 12/31/2024 12:19 AM [facility] Chloride 101 98 - 107 mmol/L 12/31/2024 12:19 AM [facility] CO2 26 22 - 33 mmol/L 12/31/2024 12:19 AM [facility] Calcium 9.0 8.7 - 10.5 mg/dL 12/31/2024 12:19 AM [facility] Alkaline Phosphatase 123 45 - 128 U/L 12/31/2024 12:19 AM [facility] Aspartate Aminotrans (AST) 23 10 - 55 U/L 12/31/2024 12:19 AM [facility] Alanine Aminotrans (ALT) 18 10 - 55 U/L 12/31/2024 12:19 AM [facility] Bilirubin, Total 0.3 0.2 - 1.0 mg/dL 12/31/2024 12:19 AM [facility] Protein, Total 7.4 6.3 - 8.3 g/dL 12/31/2024 12:19 AM [facility] Albumin 3.9 3.4 - 4.8 g/dL 12/31/2024 12:19 AM [facility] BUN/Creatinine Ratio 24 10.0 - 25.0 Ratio 12/31/2024 12:19 AM [facility] Globulin 3.5 1.5 - 3.9 g/dL 12/31/2024 12:19 AM [facility] Albumin/Globulin Ratio 1.1 1.0 - 3.0 Ratio 12/31/2024 12:19 AM [facility] Anion Gap 10 7 - 17 12/31/2024 12:19 AM [facility] Blood Blood specimen / Unknown 12/30/2024 11:01 PM EDT 12/30/2024 11:50 PM EDT Payton Rosario STAFF AUDITOR LAB BLOOD ORDERABLES Final Re sult [address] [address], [address] [address] from Last 3 Months Insurance [employer] MEDICARE Advance Directives * Full Code (Latest Code Status on File) Date Activated Date Inactivated Comments 12/31/2024 12:31 AM Question Answer Comments Decision Thoroughly Discussed with: Patient Care Teams Latent Print Examiner Relationship Specialty Start Date End Date Unknown Unknow Provider Address PCP - General 12/30/24
--- OUTSIDE RECORDS SUMMARY | 2025-02-12 17:06 | XMS_ITS | Encounter Summary ---
Author Organization [facility] Address [address] [place] [id number] Phone Care Team Providers Care Sales Representative [employer] Name Role Phone Pauline Dc MD Primary Care Provider [phone] Encounter Details Date Type Department Care Team (Late st Contact Info) Description 02/20/2024 Procedure [facility], Ct Scan - [address] [address] Social History Tobacco Use Types Packs/Day Years [...] 8:52 AM EDT Temitope Moreland RN * [facility] Suicide Severity Rating Scale (Screener/Recent Self-Report) Question [...] on filedocumented in this encounter Care Teams Sales Representative [employer] Relationship Specialty Start Date End Date Pauline Dc MD [address] [facility] [place] [address] PCP - General Internal Medicine 02/20/24 documented as of this encounter Additional Source Comments The information contained in this document represents components of the legal health record. It is not the complete legal health record.[facility]
== END 2025-02-12 15:58 | disposition home or self-care (01) ==
LOC: HO.HMCC 13:52
PROVIDERS: PCP Internal Medicine; Visit Provider Internal Medicine
DX: R10.9 Unspecified abdominal pain (principal); K83.8 Other specified diseases of biliary tract; R91.8 Other nonspecific abnormal finding of lung field; J44.9 Chronic obstructive pulmonary disease, unspecified

== ENCOUNTER → 2025-02-12 13:51 | Outpatient (BNVA) | payer MEDICARE, SELFPAY | PROVIDERS: PCP Internal Medicine; Visit Provider Internal Medicine | DX: R10.13 Epigastric pain (principal); K83.8 Other specified diseases of biliary tract; R91.8 Other nonspecific abnormal finding of lung field; J44.9 Chronic obstructive pulmonary disease, unspecified | CPT/HCPCS: 96127; 99495 ==

== ENCOUNTER 2025-02-13 13:36 | Outpatient (AMB) | payer MEDICARE, SELFPAY ==
[2025-02-13 13:42] VITALS: BP 130/70; PULSE 86; O2SAT 97; BMI 23.1
--- NOTE | 2025-02-13 13:42 | A.OFFVIS_ITS ---
Vital Signs 02/13/25 13:42 Height 5 ft 7 in Weight 147 lb 11.355 oz BMI 23.1 BP 130/70 Blood Pressure Location Lt brachial Position Sitting Pulse 86 Pulse Source Pulse Oximeter Pulse Oximetry (%) 97 Oxygen Delivery Method Room Air Intake Visit Reasons: COPD Intake Note: pt is here for follow up and some wheezing. He is being worked up for something in the abdomen. Parking Ramp Attendant Required: No Explosive Operator Grenade: Explosive Operator Grenade offered & declined Allergies Penicillins Allergy (Verified 02/13/25 14:11) Rash Medication List - Last Reconciled 02/13/25 by Henry Goddard MD albuterol sulfate 90 mcg/actuation 2 puffs inhalation Q6H PRN dicyclomine 20 mg (2 x 10 mg) PO QID PRN methadone 105 mg PO DAILY omeprazole 20 mg PO DAILY@0630 Trelegy Ellipta 100-62.5-25 mcg (wprjvkswhzp-pvbblwffd-zcsucqhd) 1 inh inhalation DAILY 30 days NS Do you need a note to return to daycare/school/sports/work: No HPI HPI COPD: Details: This 64 years old gentleman is here for follow-up after 1 month. Breathing levy doing well except for mild intermittent cough which is mostly nonproductive. Denies any chest pain. He does get short of breath on walking fast or climbing stairs. Still has nonspecific discomfort in the left lower chest. Also going to have some workup for his nonspecific discomfort in the abdomen/ GERD symptoms controlled with omeprazole. [facility] Medical History Dilated cbd, acquired Hydropneumothorax Lumbar disc disease History of basal cell carcinoma (BCC) GERD (gastroesophageal reflux disease) Anxiety and depression Nicotine dependence, cigarettes, uncomplicated Hx of fracture of leg Surgical History History of colonoscopy History of basal cell carcinoma (BCC) excision History of back surgery Family History Father No problems noted. Mother Heart attack Brother Throat cancer Brother Substance use disorder Social History Household Members: None Household Members Other:: lives with brother,disability for lumbar DJD, , 2 adult daughters Housing: House Do you presently have visiting nurse or other home services: No Alcohol intake: former Year quit: 2008 Patient Tobacco Use Status: Current everyday Tobacco user Tobacco use type: Cigarette Cigarette Packs Per Day: 10 Cigarettes Per Day: 30.0 Years Smoked: onset 15yo, 1ppd x 48yrs, 45pyh e-Cigarette/Vaping Use: Never Used Second Hand Smoke Exposure: No service: No Current occupational status: unemployed Cognitive needs: No Hearing needs: No Vision needs: Yes Review of Systems Const All systems reviewed & are unremarkable except as noted in HPI and below Eyes Reports no additional complaints ENT Reports no additional complaints Card Denies chest pain, Denies syncope, Denies irregular heart rhythm and Denies leg edema Resp Reports as per HPI GI Reports heartburn (GERD symptoms being treated) Reports no additional complaints Musc Reports no additional complaints Skin/Breast Reports system reviewed and no additional complaints, except as documented Neuro Reports no additional complaints and Denies syncope Psych Reports no additional complaints Endo Reports no additional complaints Phi/Lymph Reports no additional complaints Aller/Immun Reports no additional complaints Physical Exam Vital Signs: Last Vital Signs Pulse 86 02/13/25 13:42 BP 130/70 02/13/25 13:42 Pulse Ox 97 02/13/25 13:42 Oxygen Delivery Method Room Air 02/13/25 13:42 BMI result Body Mass Index 23.1 Patient is of a thin build , in no distress Const General: healthy appearing (Slightly underweight), comfortable, no acute distress, alert and awake Orientation/consciousness: patient oriented x3 HEENT Head: Yes normal to inspection General nose exam: No nasal polyps present and No nasal discharge present Face and sinus: Yes sinuses nontender Mouth: oropharynx normal Throat: Yes posterior oropharynx normal Eyes General: appearance normal, both eyes and all related structures Neck Neck: Yes normal visual inspection, Yes no lymphadenopathy, Yes trachea midline and Yes no JVD Thyroid: Thyroid normal Chest Chest palpation & inspection: abnormal inspection of the chest (Mild retraction of the left lower chest), normal palpation of entire chest wall and no tenderness Resp Other: Chest is symmetrical. percussion note is slightly dull over Left lower chest Breath sounds are distant on both sides, and absent over left base . There are no localized crepitations . Cardio Palpation: normal PMI Rate: regular rate Rhythm: regular rhythm Heart sounds: no gallops and no murmurs GI Palpation (GI): Soft to palpation, nontender, No hepatosplenomegaly present and no masses Auscultation: normal bowel sounds Back/Spine/Pelvis Thoracic/Lumbar Spine: thoracic and lumbar spine normal to inspection Skin General skin exam: no rashes or lesions noted Neuro General: patient oriented x3 and no focal motor deficits Cranial nerves: Yes CN's II-XII intact bilaterally Extrem General: Yes normal to inspection, Yes no clubbing, cyanosis or edema and Yes no calf tenderness Psych Appearance: grossly normal and well kempt Speech and movement: Normal speech and movement present Results Reviewed Results Reviewed: CTA of Chest 02/05/25 IMPRESSION: 1. No pulmonary emboli. No acute aortic syndrome. 2. Interval increase in left lower lobe superior segment consolidation, concerning for pneumonia. Assessment & Plan Assessment & Plan (1) COPD (chronic obstructive pulmonary disease): Comment: THIS GENTLEMAN HAS HISTORY OF SMOKING FOR MORE THAN 40 YEARS. INITIALLY 2 PACKS A DAY AND NOW HAS CUT DOWN TO 1 PACK A DAY. HE HAS CLINICAL FEATURES OF CHRONIC OBSTRUCTIVE PULMONARY DISEASE. THOUGH HE HAS HAD NO PULMONARY FUNCTION TEST. Code(s): J44.9 - Chronic obstructive pulmonary disease, unspecified Category: Medical Plan: CONTINUE TO USE TRELEGY ELLIPTA 1 INHALATION DAILY. ALBUTEROL HFA 2 PUFFS Q 6 HOURS P.R.N. (2) Mass of left lung: Comment: Left lower lung consolidation on CT of the chest, HE CONTINUES TO HAVE RESIDUAL CONSOLIDATION OF THE LEFT LOWER LOBE BUT THERE ARE NO SYMPTOMS OF ACUTE RESPIRATORY INFECTION. Code(s): R91.8 - Other nonspecific abnormal finding of lung field Category: Medical Plan: SEE BELOW UNDER HYDRO PNEUMOTHORAX (3) Hydropneumothorax: Comment: POST TREATMENT FOR MULTILOBAR PNEUMONIA ON ON THE LEFT SIDE, WITH UPPER LOBE CONSOLIDATION, PATIENT LEFT WITH RESIDUAL HYDRO PNEUMOTHORAX. PATIENT HAD THORACENTESES FOR THE APPEARANCE OF PLEURAL EFFUSION ON THE LEFT SIDE. NOT MUCH FLUID WAS OBTAINED. HE DEVELOPED HYDROPNEUMOTHORAX. FOR WHICH CHEST TUBE WAS PLACED. HE WAS TRANSFERRED TO [facility], CHEST TUBE REMOVED IN 3 DAYS, PNEUMOTHORAX RESOLVED PARTIALLY, WITH RESIDUAL HYDROPNEUMOTHORAX. Code(s): J94.8 - Other specified pleural conditions Category: Medical Plan: CLINICALLY THE HYDRO PNEUMOTHORAX HAS RESOLVED AT THIS TIME. BUT HE CONTINUES TO HAVE RESIDUAL CONSOLIDATION . Plan PLAN IS TO ARRANGE FOR BRONCHOSCOPY, TO DO BRONCHIAL WASHING, CHECK FOR POSSIBLE MALIGNANCY, RESIDUAL INFECTION . PATIENT UNDERSTANDS ABOUT THIS PROCEDURE AND IS WILLING TO UNDERGO. Coding Level of Care Code Est Pt Level 3 (22123) Diagnoses COPD (chronic obstructive pulmonary disease) J44.9 Mass of left lung R91.8 Hydropneumothorax J94.8
== END 2025-02-13 14:09 | disposition home or self-care (01) ==
LOC: HO.HPS 13:37
PROVIDERS: PCP Internal Medicine; Visit Provider Internal Medicine
DX: J44.9 Chronic obstructive pulmonary disease, unspecified (principal); R91.8 Other nonspecific abnormal finding of lung field; J94.8 Other specified pleural conditions
CPT/HCPCS: 99213

== ENCOUNTER → 2025-02-13 13:36 | Outpatient (BNVA) | payer MEDICARE, SELFPAY | PROVIDERS: PCP Internal Medicine; Visit Provider Internal Medicine | DX: J44.9 Chronic obstructive pulmonary disease, unspecified (principal); R91.8 Other nonspecific abnormal finding of lung field; J94.8 Other specified pleural conditions | CPT/HCPCS: 99212 ==

== ENCOUNTER 2025-02-27 06:26 | Day surgery (SDC) | payer MEDICARE, SELFPAY ==
--- NOTE | 2024-12-25 12:57 | P.CONAN_ITS ---
HPI - Anesthesia Eval Consult details Narrative: 64yo M for Bronchoscopy Fiberoptic, 01/18/25 [facility], LAT[facility] Active Problems Active Problems: All Active Problems Mass of left lung (Acute) Lung abscess (Acute) COPD (chronic obstructive pulmonary disease) (Acute) Cough (Acute) Diverticulitis (Acute) History of malignant neoplasm of skin (Acute) Nicotine dependence, cigarettes, uncomplicated (Acute) Anxiety and depression (Acute) Weight loss (Acute) GERD (gastroesophageal reflux disease) (Acute) Abdominal pain (Acute) Lumbar disc disease (Acute) Past Medical History Medical History Lumbar disc disease History of basal cell carcinoma (BCC) GERD (gastroesophageal reflux disease) Anxiety and depression Nicotine dependence, cigarettes, uncomplicated Hx of fracture of leg Family History Family History Father No problems noted. Mother Heart attack Brother Throat cancer Brother Substance use disorder Family history of problems with anesthesia: No Surgical History Surgical History History of colonoscopy History of basal cell carcinoma (BCC) excision History of back surgery History of Problems with Anesthesia: No Social History Social History Household Members Other:: lives with brother,disability for lumbar DJD, , 2 adult daughters Housing: House Alcohol intake: former Year quit: 2008 Patient Tobacco Use Status: Current everyday Tobacco user Tobacco use type: Cigarette Cigarette Packs Per Day: 1 Cigarettes Per Day: 20 Years Smoked: onset 15yo, 1ppd x 48yrs, 45pyh e-Cigarette/Vaping Use: Never Used service: No Current occupational status: unemployed Cognitive needs: No Hearing needs: No Vision needs: Yes Meds Allergies Allergy/AdvReac Type Severity Reaction Status Date / Time Penicillins Allergy Rash Verified 12/30/24 18:15 Home Medications ?Medication ?Instructions ?Recorded ?Confirmed ?Last Taken ?Type methadone PO 10/12/24 11/01/24 Unknown History polyethylene glycol 3350 17 17 g PO BID PRN 11/01/24 0 11/01/24 Unknown History gram/dose oral powder (Miralax) Exam Narrative Narrative: Chest CT 12/2024 Impression: Small left hydropneumothorax. 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 An acute infectious process with cavitation is considered less likely. Follow up is recommended. On follow up attention to new right lung nodules which measure up to 7 mm is also recommended. Assessment and Plan Assessment Anesthesia Assessment: Chart Reviewed Final Anesthetic Review Family History of Problems with Anesthesia: No History of Problems with Anesthesia: No
--- NOTE | 2024-12-27 08:07 | PC.NURSE ---
pt called and stated he ate breakfast with coffee this am anesthesia aware and tigerred dr talbot ? going after 4pm or reschedule pt
--- NOTE | 2024-12-27 09:38 | PC.NURSE ---
pt will be rescheduled per dr talbot pt aware
--- NOTE | 2025-02-25 10:43 | P.CONAN_ITS ---
Documented by User: Cintia Lux NP 02/25/25 10:45 HPI - Anesthesia Eval Consult details Narrative: 64yo M for Bronchoscopy Fiberoptic Methadone daily C admit 02/05-02/06/25. Per PCP post discharge f/u hospitalized for RUQ abd pain. Pt had MRCP consistent with intra and extrah epatic biliary ductal dilatation secondary to stenosis of the sphincter of Oddi intrinsic lesion can not be excluded. ERCP was scheduled but patient left the hospital for family needs. He reports intermittent epigastric discomfort after eating fried or fatty foods but denies nausea or vomiting. He reports chronic constipation and has been trying to increase fluid and fiber intake. Patient follows up with anti tank missileman and bronchoscopy was recommended to evaluate for left lower lobe consolidation. Patient denies productive cough but reports intermittent wheezing. He has been taking Trelegy with good relief. He has been cutting down on smoking down to 1 pack-a-day PMFSH Active Problems Active Problems: All Active Problems Left lower lobe pulmonary infiltrate (Acute) Dilated cbd, acquired (Acute) Hydropneumothorax (Acute) Mass of left lung (Acute) Lung abscess (Acute) COPD (chronic obstructive pulmonary disease) (Acute) Cough (Acute) Diverticulitis (Acute) History of malignant neoplasm of skin (Acute) Nicotine dependence, cigarettes, uncomplicated (Acute) Anxiety and depression (Acute) Weight loss (Acute) GERD (gastroesophageal reflux disease) (Acute) Abdominal pain (Acute) Lumbar disc disease (Acute) Past Medical History Medical History Dilated cbd, acquired Hydropneumothorax Lumbar disc disease History of basal cell carcinoma (BCC) GERD (gastroesophageal reflux disease) Anxiety and depression Nicotine dependence, cigarettes, uncomplicated Hx of fracture of leg Family History Family History Father No problems noted. Mother Heart attack Brother Throat cancer Brother Substance use disorder Family history of problems with anesthesia: No Surgical History Surgical History History of colonoscopy History of basal cell carcinoma (BCC) excision History of back surgery History of Problems with Anesthesia: No Social History Social History Household Members: None Household Members Other:: lives with brother,disability for lumbar DJD, , 2 adult daughters Housing: House Do you presently have visiting nurse or other home services: No Alcohol intake: former Year quit: 2008 Patient Tobacco Use Status: Current everyday Tobacco user Tobacco use type: Cigarette Cigarette Packs Per Day: 10 Cigarettes Per Day: 30.0 Years Smoked: onset 15yo, 1ppd x 48yrs, 45pyh e-Cigarette/Vaping Use: Currently Using Second Hand Smoke Exposure: No Use of substances other than those prescribed or required for medical reasons: No Are you DNR?: No Advance Directives: No Advance Directives Information Provided: Yes service: No Current occupational status: unemployed Cognitive needs: No Hearing needs: No Vision needs: Yes Meds Allergies Allergy/AdvReac Type Severity Reaction Status Date / Time Penicillins Allergy Rash Verified 02/13/25 14:11 Home Medications ?Medication ?Instructions ?Recorded ?Confirmed ?Last Taken ?Type methadone 10 mg tablet 105 mg PO DAILY 02/05/2512/3102/05/25 History omeprazole 20 mg capsule,delayed 20 mg PO DAILY@0630 0 02/05/25 02/13/25 02/05/25 History release Exam Pertinent Lab Results Pertinent Lab Results: Laboratory Tests 02/06/25 06:37 WBC 11.3 H Hgb 13.8 L Hct 42.1 Plt Count 265 Sodium 139 Potassium 4.4 Chloride 101 Carbon Dioxide 30 H BUN 14 Creatinine 0.84 Narrative Narrative: EKG 12/2024 Vent. Rate : 61 BPM Atrial Rate : 61 BPM P-R Int : 178 ms QRS Dur : 98 ms QT Int : 414 ms P-R-T Axes : 69 37 71 degrees QTcB Int : 416 ms Normal sinus rhythm Normal ECG No previous ECGs available Assessment and Plan Assessment Anesthesia Assessment: Chart Reviewed Final Anesthetic Review Family History of Problems with Anesthesia: No History of Problems with Anesthesia: No Documented by User: Arlyn Hancock NP 02/25/25 11:07 HPI - Anesthesia Eval Consult details Narrative: 64yo M for Bronchoscopy Fiberoptic Methadone daily C admit 02/05-02/06/25. Per PCP post discharge f/u hospitalized for RUQ abd pain. Pt had MRCP consistent with intra and extrahepatic biliary ductal dilatation secondary to stenosis of the sphincter of Oddi intrinsic lesion can not be excluded. ERCP was scheduled but patient left the hospital for family needs. He reports intermittent epigastric discomfort after eating fried or fatty foods but denies nausea or vomiting. He reports chronic constipation and has been trying to increase fluid and fiber intake. Patient follows up with anti tank missileman and bronchoscopy was recommended to evaluate for left lower lobe consolidation. Patient denies productive cough but reports intermittent wheezing. He has been taking Trelegy with good relief. He has been cutting down on smoking down to 1 pack-a-day PMFSH Past Medical History Medical History Dilated cbd, acquired Hydropneumothorax Lumbar disc disease History of basal cell carcinoma (BCC) GERD (gastroesophageal reflux disease) Anxiety and depression Nicotine dependence, cigarettes, uncomplicated Hx of fracture of leg Family History Family History Father No problems noted. Mother Heart attack Brother Throat cancer Brother Substance use disorder Surgical History Surgical History History of colonoscopy History of basal cell carcinoma (BCC) excision History of back surgery Social History Social History Household Members: None Household Members Other:: lives with brother,disability for lumbar DJD, , 2 adult daughters Housing: House Do you presently have visiting nurse or other home services: No Alcohol intake: former Year quit: 2008 Patient Tobacco Use Status: Current everyday Tobacco user Tobacco use type: Cigarette Cigarette Packs Per Day: 10 Cigarettes Per Day: 30.0 Years Smoked: onset 15yo, 1ppd x 48yrs, 45pyh e-Cigarette/Vaping Use: Currently Using Second Hand Smoke Exposure: No Use of substances other than those prescribed or required for medical reasons: No Are you DNR?: No Advance Directives: No Advance Directives Information Provided: Yes service: No Current occupational status: unemployed Cognitive needs: No Hearing needs: No Vision needs: Yes Meds Allergies Allergy/AdvReac Type Severity Reaction Status Date / Time Penicillins Allergy Rash Verified 02/13/25 14:11 Home Medications ?Medication ?Instructions ?Recorded ?Confirmed ?Last Taken ?Type methadone 10 mg tablet 105 mg PO DAILY 02/05/2512/3102/05/25 History omeprazole 20 mg capsule,delayed 20 mg PO DAILY@0630 0 02/05/25 02/13/25 02/05/25 History release Documented by User: Carleen Jung MD 02/27/25 08:30 [facility] Past Medical History Medical History Dilated cbd, acquired Hydropneumothorax Lumbar disc disease History of basal cell carcinoma (BCC) GERD (gastroesophageal reflux disease) Anxiety and depression Nicotine dependence, cigarettes, uncomplicated Hx of fracture of leg Family History Family History Father No problems noted. Mother Heart attack Brother Throat cancer Brother Substance use disorder Surgical History Surgical History History of colonoscopy History of basal cell carcinoma (BCC) excision History of back surgery Social History Social History Household Members: None Household Members Other:: lives with brother,disability for lumbar DJD, , 2 adult daughters Housing: House Do you presently have visiting nurse or other home services: No Alcohol intake: former Year quit: 2008 Patient Tobacco Use Status: Current everyday Tobacco user Tobacco use type: Cigarette Cigarette Packs Per Day: 10 Cigarettes Per Day: 30.0 Years Smoked: onset 15yo, 1ppd x 48yrs, 45pyh e-Cigarette/Vaping Use: Currently Using Second Hand Smoke Exposure: No Use of substances other than those prescribed or required for medical reasons: No Are you DNR?: No Advance Directives: No Advance Directives Information Provided: Yes service: No Current occupational status: unemployed Cognitive needs: No Hearing needs: No Vision needs: Yes Meds Allergies Allergy/AdvReac Type Severity Reaction Status Date / Time Penicillins Allergy Rash Verified 02/13/25 14:11 Home Medications ?Medication ?Instructions ?Recorded ?Confirmed ?Last Taken ?Type methadone 10 mg tablet 105 mg PO DAILY 02/05/2512/3102/05/25 History omeprazole 20 mg capsule,delayed 20 mg PO DAILY@0630 0 02/05/25 02/13/25 02/05/25 History release Exam Airway Mallampati Class: II TM Dist: >3cm Neck ROM: Full Loose/Missing/Broken Teeth: Yes, No, Upper and Lower Heart: rrr Lungs: cta Assessment and Plan Assessment Anesthesia Assessment: Anesthesia Plan Discussed Final Anesthetic Review NPO: Yes ASA Class: III Final Preanesthetic Review: No Changes in Pt Med Stat, Meds/Allgs Chart Reviewed, Consent Obtained/Reviewed and Anes Risks/Benef Reviewed Patient Risk: Intermediate Procedure Risk: Low Anesthetic Plan Anesthetic Plan: GA and Agree w/ Assess. and Plan Disposition: Standard PACU
[2025-02-27 07:19] VITALS: BP 123/83; PULSE 77; RESP 20; TEMP 37.1; O2SAT 96; BMI 23.1
[2025-02-27] MEDS: Lactated Ringers 1,000 ML 100 ML IVCONT (07:36)
--- NOTE | 2025-02-27 08:26 | P.HPSUR_ITS ---
Pre-Procedural Eval Section A - 24 Hr Update-Section A only Date of Service: 02/27/25 The patient is an INPATIENT: No Changes since office visit: No Cold of Flu in the past 2 weeks, No New Medical Problems, No Changes in Medication and No Patient answered all questions Section B - Complete if H&P > 30 days Chief Complaint: Solitary pulmonary nodule Details of Present Illness: 64-year-old gentleman with a history hydropneumoth orax. Status post drainage of pleural effusion. Still has a left lower lobe airspace disease. Relevant Family History (Specify if Yes): No Relevant Social History: None Present Medications: see Short Stay Collaborative assessment Medical History: Significant History History of Previous Operations: No relevant previous surgery Allergies: Allergies Allergy/AdvReac Type Severity Reaction Status Date / Time Penicillins Allergy Rash Verified 02/13/25 14:11 Review of Systems Sugical H&P ROS: Negative: Constitution, Cardiovascular, Respiratory, Neurological, Psychiatric, Hem-Onc, Allergic/Immunologic, Gastrointestinal and Genitourinary Exam Surgical H&P Exam: Normal: HEENT, Normal: Heart, Normal: Lungs, Normal: Extremities, Normal: Abdomen and Normal: Skin Plan Diagnosis/Plan: Unchanged (Bronchosopcy to assess LLL airspace disease) I have reviewed the history and physical and performed a pertinent physical examination on my patient. No changes have occurred unless specified. Time Spent With Patient Time: Total time managing care of this patient today ____ minutes.
[2025-02-27 09:37] VITALS: BP 128/75; PULSE 114; RESP 20; TEMP 36.4; O2SAT 96
[2025-02-27 09:42] VITALS: BP 138/75; PULSE 95; RESP 14; O2SAT 96
[2025-02-27 09:47] VITALS: BP 133/75; PULSE 94; RESP 13; O2SAT 95
[2025-02-27 09:52] VITALS: BP 143/79; PULSE 87; RESP 14; O2SAT 94
[2025-02-27 10:10] VITALS: BP 131/77; PULSE 81; RESP 16; TEMP 36.7; O2SAT 94
--- NOTE | 2025-02-27 17:25 | P.BOP_ITS ---
Brief Operative Note Date of Service: 02/27/25 Pre-op diagnosis: Pulmonary nodule Post-op diagnosis: same Procedure: Bronchoscopy with brushings, washings and biopsies Implants: Surgeon: Matthew Price MD Was an Poultry Scientist used for this Procedure?: No Estimated blood loss (mL): 1 Pathology: other (LLL bipsies) Condition: stable Disposition: same day
--- NOTE | 2025-03-01 02:41 | OP_ITS ---
DATE OF SERVICE: 02/27/2025 SURGEON: Matthew Price MD PREOPERATIVE DIAGNOSIS: Pulmonary nodule. POSTOPERATIVE DIAGNOSIS: Pulmonary nodule. PROCEDURE PERFORMED: Bronchoscopy with washings, brushings, and biopsies. ESTIMATED BLOOD LOSS: COMPLICATIONS: ANESTHESIA: General endotracheal anesthesia provided ASSISTANTS: SPECIMENS: DESCRIPTION OF PROCEDURE: After the patient was adequately sedated and intubated, the flexible digital bronchoscope was inserted with the ET tube to the level of the main gee. Main gee appeared normal. Afterwards, the bronchoscope was navigated to the entire tracheobronchial tree that was examined up to the subsegmental level. The patient did have evidence of moderate degree of mucoid secretions throughout, which were easily suctioned using saline, and there was some slight inflammation of the airways consistent with chronic bronchitis. He did have slight endobronchial prominence in the left lower lobe, which appeared to have normal mucosa but it was more pronounced. The bronchoscope was navigated to the entire tracheobronchial tree and normal saline was used and his airways were cleared out of mucus. Bronchial washings were collected from the left lower lobe. Then using microscopic and cytologic brushings, those were both introduced into the left lower lobe and sent to the appropriate locations. Afterwards using forceps, the bronchoscope was navigated to the left lower lobe where he had endobronchial prominence and a couple of biopsies were obtained. No evidence of any active bleeding, although epinephrine was used at the end of the procedure to maintain good hemostasis. Afterwards, no evidence of any active bleeding. The bronchoscope was then removed, and the total endoscopic time approximately 15 minutes. The patient tolerated procedure well without any complications. CASE AIDE: None. MD TARIQ Liao/CHARLOTTEL / [id number]
== END 2025-02-27 11:44 | disposition home or self-care (01) ==
PROVIDERS: PCP Internal Medicine; Visit Provider Hospitalist
PROC: 0BJ08ZZ Inspection of Tracheobronchial Tree, Via Natural or Artificial Opening Endoscopic (ICD-10-PCS; CPT 31622; principal; 2025-02-27 08:40)
DX: R91.1 Solitary pulmonary nodule (principal); D14.32 Benign neoplasm of left bronchus and lung; R06.02 Shortness of breath; J44.9 Chronic obstructive pulmonary disease, unspecified; J90 Pleural effusion, not elsewhere classified; J85.2 Abscess of lung without pneumonia; K21.9 Gastro-esophageal reflux disease without esophagitis; F41.8 Other specified anxiety disorders; Z85.828 Personal history of other malignant neoplasm of skin; Z79.51 Long term (current) use of inhaled steroids; Z88.0 Allergy status to penicillin; Z98.890 Other specified postprocedural states; F17.210 Nicotine dependence, cigarettes, uncomplicated; Z56.0 Unemployment, unspecified
CPT/HCPCS: 31623; 87070; 87102; 87116; 87205; 87206; 88112; 88305; J0165; J1100; J2003; J2250; J2405; J2704; J3010

== ENCOUNTER → 2025-02-27 06:26 | Outpatient (BNV) | payer MEDICARE, SELFPAY | PROVIDERS: PCP Internal Medicine; Visit Provider Hospitalist | DX: R91.8 Other nonspecific abnormal finding of lung field (principal) | CPT/HCPCS: 31623 ==